=== PATIENT | female | born 2000 ===

== ENCOUNTER 2020-08-21 22:38 | Emergency (ER) | payer MEDICAID, OTHER, SELFPAY ==
[2020-08-22 01:34] VITALS: BP 128/74; PULSE 77; RESP 16; TEMP 36.7; O2SAT 100; BMI 27.9
[2020-08-22] MEDS: Ketorolac Tromethamine 15 MG/ML VIAL IM (02:13)
[2020-08-22] MEDS: Acetaminophen 325 MG TABLET 975 MG PO (02:13)
[2020-08-22] MEDS: Lidocaine 4 % Patch ADH..PATCH 1 PATCH TRANSDERMA (02:14)
--- NOTE | 2020-08-22 02:32 | ED.BACK ---
HPI - Back Pain/Injury General Chief Complaint: Back Pain/Injury Stated Complaint: back pain Time Seen by Provider: 08/22/20 00:59 Source: patient Mode of arrival: ambulatory History of Present Illness HPI Narrative: This is a 20-year-old female with chronic lower back pain that was exacerbated after she lifted her baby sister and now reports bilateral approximate L4/L5 paraspinal back tenderness with radiation into the upper portion of the buttocks as well as into the proximal thigh area without saddle anesthesia and she denies any urine or fecal incontinence or bilateral lower extremity weakness. In addition, she denies any IVDA history, fevers, chills. Related Data Allergies Allergy/AdvReac Type Severity Reaction Status Date / Time No Known Allergies Allergy Verified 08/22/20 01:37 Review of Systems Review of Systems: Pertinent positives and negatives as stated in HPI 10 point review of systems is otherwise negative. [facility] Past Medical History Source: nursing notes reviewed Social History Social History Advance Directives: No Physical Exam Vital Signs: Vital Signs: Last Vital Signs Temp 98.0 F 08/22/20 01:34 Pulse 77 08/22/20 01:34 Resp 16 08/22/20 01:34 BP 128/74 08/22/20 01:34 Pulse Ox 100 08/22/20 01:34 Body Mass Index 27.9 VITAL SIGNS: Reviewed. GENERAL: Well developed, well nourished, in no acute distress. NOSE: Nares patent bilateral OROPHARYNX: no oral lesions noted, posterior pharynx clear NECK: Supple, no adenopathy LUNGS: Normal breath sounds. SpO2<100> CARDIOVASCULAR: Regular rate and rhythm without noted murmurs ABDOMEN: Soft, non-tender, non-distended with bowel sounds. BACK: Full range of motion but limited on extension, straight leg test is negative, DTRs are intact, neurovascular intact to bilateral lower extremities, no pain on palpation over midline lumbar vertebra. SKIN: Inspection of the skin reveals no rashes, ulcerations, jaundice, pallor, or petechiae. NEUROLOGIC: Alert and oriented x 4. Strength and sensation to light touch were grossly intact x 4. Course Course Course Narrative: This is a 20-year-old female with history and clinical presentation consistent with acute on chronic exacerbation of lower back symptoms with evidence of lumbar go and on review of urinalysis and urine they are negative for evidence of infection or . There is low clinical suspicion for competing intra-abdominal pathologies and patient was treated with combination analgesics as well as a lidocaine patch. On re-evaluation patient reports that her back is feeling much better and feels agreeable for discharge. MDM - Back Pain/Injury Lab Data Labs: Lab Results 08/22/20 08/22/20 Range/Units 02:52 02:52 Urine Color YELLOW Urine Appearance HAZY Urine pH 6.0 (5.0-8.0) Ur Specific [place] >= 1.030 H (1.005-1.025) Urine Protein NEG (NEG-TRACE) MG/DL Urine Glucose (UA) NEG (NEG) MG/DL Urine Ketones NEG (NEG) MG/DL Urine Blood NEG (NEG) Urine Nitrite NEG (NEG) Ur Leukocyte Esterase NEG (NEG) Urine Test NEGATIVE (NEGATIVE) Discharge Plan Discharge Clinical Impression: Lumbar radiculopathy Patient Disposition: Home, Self-Care Instructions: Low Back Strain (ED), Lower Back Exercises (ED) Additional Instructions: 1. Tylenol 1000 mg, orally, every 6 hours as needed for pain control. Do not exceed 4000 mg within 24 hours. 2. Ibuprofen 400 mg, orally with milk or food, every 6 hours as needed for pain control. 3. Lidocaine patch, these are available at every [facility], apply to area of maximal tenderness as directed on the outside packaging. 4. Please follow-up with your primary care provider for re-evaluation outpatient management. Do not hesitate to return to the emergency department she develops any fevers, chills, inability to walk due to lower extremity weakness. Referrals: Physician,None [Primary Care Provider] - 2 days
[2020-08-22 03:20] LABS: Appearance Urine HAZY; Color Urine YELLOW; Glucose Urine UA NEG (NEG); Leukocyte Esterase Urine NEG (NEG); Nitrite Urine NEG (NEG); Specific Gravity - Urine >= 1.030 (1.005-1.025); Urine Blood NEG (NEG); Urine Ketones NEG (NEG); Urine Protein NEG (NEG-TRACE)
[2020-08-22 03:22] LABS: UPreg QC Valid YES; Urine Pregnancy NEGATIVE (NEGATIVE)
== END 2020-08-22 04:20 | disposition home or self-care (01) ==
PROVIDERS: Emergency Provider Student in an Organized Health Care Education/Training Program
DX: M54.16 Radiculopathy, lumbar region (principal); M54.5 Low back pain
CPT/HCPCS: 81003; 81025; 96372; 99283; 99284; J1885

== ENCOUNTER 2020-08-22 16:22 | Emergency (ER) | payer MEDICAID, OTHER, SELFPAY ==
[2020-08-22 16:28] VITALS: BP 122/59; PULSE 81; RESP 18; TEMP 36.7; O2SAT 99; BMI 27.9
--- NOTE | 2020-08-22 17:49 | ED_ITS ---
HPI - Back Pain/Injury General Chief Complaint: Back Pain/Injury Stated Complaint: back pain Time Seen by Provider: 08/22/20 17:49 History of Present Illness HPI Narrative: Patient complains and pain in the back after lifting an object yesterday at home, pain radiates into the upper gluteal area on both sides but does not radiate to the toes there is no tingling no numbness no weakness and no changes to bowel or bladder Patient was here last night for same problem and advised to take ibuprofen which did not bring sufficient relief, she got a shot of Toradol last night which she said was helpful Related Data Previous Rx's Medication Instructions Recorded cyclobenzaprine 5 mg PO TID PRN #14 tab 08/22/20 Allergies Allergy/AdvReac Type Severity Reaction Status Date / Time No Known Allergies Allergy Verified 08/22/20 16:28 Review of Systems Review of Systems: Positive for low back pain Negatives no fever no chills no weakness no dizziness no neck pain no chest pain no shortness of breath no abdominal pain no nausea or vomiting no changes to bowel or bladder, no dysuria no incontinence, no skin rash no numbness no weakness no tingling PMFSH Past Medical History Source: nursing notes reviewed Medical History (Updated 08/22/20 @ 18:20 by [place] Cunningham) Tuberculosis Surgical History (Updated 08/22/20 @ 16:32 by Marian Arzate RN) Hx of appendectomy Social History Social History Smoked in Last 30 Days: No Use of substances other than those prescribed or required for medical reasons: No Advance Directives: No Advance Directives Information Provided: Yes Physical Exam Vital Signs: Vital Signs: Last Vital Signs Temp 98.1 F 08/22/20 16:28 Pulse 81 08/22/20 16:28 Resp 18 08/22/20 16:28 BP 122/59 L 08/22/20 16:28 Pulse Ox 99 08/22/20 16:28 Body Mass Index 27.9 General appearance is no acute distress, cooperative and A&O x3 The head is normocephalic atraumatic Neck is supple nontender Respiratory no distress Abdomen soft nontender The back has bilateral lower lumbar paraspinal tenderness with no focal point tenderness over the bones, no CVA tenderness, skin is normal in appearance no redness or rash, pain is easily reproduced with movement Extremities is full range of motion x4 Neuro the gait is normal, there is no motor deficit motor is 5/5 x4, no sensory deficit, patient can walk on toes walk on heels and squat Course Course Course Narrative: Patient with musculoskeletal back pain after lifting injury we did not get sufficient relief from Motrin so I added a muscle relaxer with warnings that it may cause drowsiness and advised follow with primary doctor or chiropractor as needed Discharge Plan Discharge Clinical Impression: Back pain Qualifiers: Back pain location: low back pain Chronicity: acute Back pain laterality: bilateral Sciatica presence: without sciatica Qualified Code(s): M54.5 - Low back pain Patient Disposition: Home, Self-Care Additional Instructions: Pain is most likely muscle strain in the back We added a muscle relaxer which sometimes helps relieve muscle spasm, but it will make you drowsy so no driving for 8 hours after taking Chiropractor and massage her often helpful and this problem is usually self- limited and should improve dramatically in a few days If needed follow with primary doctor if pain does not improve or chiropractor Return any time any worse condition or concerns Prescriptions: New cyclobenzaprine 5 mg tablet 5 mg PO TID PRN (Reason: muscle spasm) Qty: 14 RF: 0 Stand Alone Forms: Work/School Release Interventions: ED Discharge Assessment Last Done: 08/22/20 18:53 Discharge Date/Time: 08/22/20 18:54
[2020-08-22] MEDS: Ketorolac Tromethamine 30 MG/ML VIAL IM (18:29)
== END 2020-08-22 18:54 | disposition home or self-care (01) ==
PROVIDERS: Emergency Provider Emergency Medicine Emergency Medical Services
DX: M54.5 Low back pain (principal)
CPT/HCPCS: 96372; 99284; J1885

== ENCOUNTER 2021-01-10 14:19 | Emergency (ER) | payer MEDICAID, OTHER, SELFPAY ==
--- NOTE | ~2021-01-10 | US_ITS ---
EXAMINATION: US OBSTETRICAL ULTRASOUND CLINICAL INFORMATION: Left lower quadrant pain COMPARISON: None. LMP: 11/08/2020. Gestational age by maternal dates is 9 weeks, 0 days. Estimated date of delivery by maternal dates is 08/15/2021. TECHNIQUE: Transabdominal imaging of the pelvic viscera was performed utilizing grayscale and color Doppler technique with M-mode imaging FINDINGS: There is a single intrauterine gestational sac with visible yolk sac, embryo/fetus, and cardiac activity. There is no significant subchorionic hemorrhage or hematoma. HR: 165 beats per minute. CRL (crown rump length): 3.26 cm (10 weeks, 2 days +/- 4 days). ELENI (estimated date of delivery): 08/06/2021 +/- 4 days. MATERNAL ADNEXA: The right maternal ovary measures 3.9 x 2.1 x 2.5 cm. The left maternal ovary measures 4.5 x 2.2 x 2.8 cm. There is a 2.3 cm corpus luteum. There is no significant maternal adnexal mass. No maternal pelvic ascites. US/US OB <= 14 weeks fetus IMPRESSION: * Single intrauterine gestation with ultrasound gestational age of 10 weeks, 2 days +/- 4 days. * Estimated date of delivery is 08/06/2021 +/- 4 days. * No maternal adnexal mass or pelvic ascites. * No perigestational hemorrhage. * No evidence of ectopic .
[2021-01-10 14:21] VITALS: BP 121/70; PULSE 89; RESP 18; TEMP 37.2; O2SAT 100; BMI 29.1
[2021-01-10 16:12] LABS: MANUAL DIFF FLAG NO
[2021-01-10 16:13] LABS: Basophils Percent Auto 0.3 % (0-2); Eosinophils Absolute Auto 0.1 X10*3/uL (0.0-0.4); Eosinophils Percent Auto 0.6 % (0-4); Hematocrit 39.2 % (37-47); Hemoglobin 13.1 g/dl (12.0-16.0); Imm Gran Abs Auto 0.04 X10*3/uL (0.00-0.03); Imm Gran Pct Auto 0.4 % (0.0-0.4); Lymphocytes Absolute Auto 3.1 X10*3/uL (1.2-4.9); Lymphocytes Percent Auto 27.1 % (20-40); Mean Corpuscular HGB Conc 33.4 g/dl (31.0-35.0); Mean Corpuscular Hemoglobin 27.8 pg (27.0-33.0); Mean Corpuscular Volume 83.1 fL (80-98); Mean Platelet Volume 9.4 fL (9.4-12.3); Monocytes Absolute Auto 0.8 X10*3/uL (0.1-1.2); Neutrophils Absolute Auto 7.3 X10*3/uL (2.0-8.3); Neutrophils Percent Auto 64.6 % (45-73); Platelet Count 338 X10*3/uL (160-400); Red Blood Count 4.72 X10*6/uL (4.20-5.50); Red Cell Distribution Width 12.9 % (11.0-16.0); White Blood Count 11.3 X10*3/uL (4.8-10.8)
[2021-01-10 16:40] LABS: Alanine Aminotransferase 20 U/L (0-31); Albumin Level 4.3 g/dL (3.5-5.0); Alkaline Phosphatase 78 U/L (39-117); Anion Gap 12 (12-20); Aspartate Amino Transferase 20 U/L (5-31); Bilirubin Total 0.2 mg/dL (0.0-1.0); Blood Urea Nitrogen 6 mg/dL (9-16); Calcium 9.4 mg/dL (8.4-10.2); Carbon Dioxide 24 mmol/L (22-29); Chloride 105 mmol/L (96-108); Creatinine Clr Calc Pharmacy 120.5; Estimated Glomerular Filt Rate > 60; Glucose Random 76 mg/dL (60-115); Sodium 137 mmol/L (135-145); Total Protein 7.7 g/dL (6.5-8.0)
--- NOTE | 2021-01-10 16:46 | ED_ITS ---
HPI - Female Genitourinary General Chief complaint: Abdominal Pain Stated complaint: lOWER ABD PAIN Time Seen by Provider: 01/10/21 16:27 Source: patient Mode of arrival: ambulatory Limitations: no limitations History of Present Illness HPI Narrative: Patient approximately 2 months complaining of pain in le ft lower abdomen since yesterday evening no urinary complaints never seen a OBG for this patient also been constipated no urinary complaints no fever no chills, no nausea no vomiting no diarrhea no fever or chills Related Data Previous Rx's Medication Instructions Recorded cyclobenzaprine 5 mg PO TID PRN #14 tab 08/22/20 Allergies Allergy/AdvReac Type Severity Reaction Status Date / Time No Known Allergies Allergy Verified 01/10/21 14:20 Review of Systems Review of Systems: Yes all other systems are reviewed and are negative [facility] Past Medical History Medical History Tuberculosis Surgical History Hx of appendectomy Social History Social History Advance Directives: No Advance Directives Information Provided: No Patient : Yes Physical Exam Vital Signs: Vital Signs: Last Vital Signs Temp 98.9 F 01/10/21 14:21 Pulse 89 01/10/21 14:21 Resp 18 01/10/21 14:21 BP 121/70 01/10/21 14:21 Pulse Ox 100 01/10/21 14:21 Body Mass Index 29.1 Appearance: Alert. Oriented X3. No acute distress. Eyes: PERRLA, ENT: Pharynx normal. Oral Mucosa moist Neck: Normal inspection. Neck supple. CVS: Normal heart rate and rhythm. Pulses normal. Respiratory: No respiratory distress. Equal air entry bilateral, no wheezing/rales/rhonchi Abdomen: Soft mild deep tenderness left lower quadrant no mass palpable Bowel sounds are present, no mass palpable, no CVA tenderness Skin: Skin warm and dry. Normal skin color. Normal skin turgor. Extremities: No lower extremity edema. No calf tenderness Neuro: Oriented X 3. No motor deficit. MDM - Female Genitourinary MDM Narrative Medical decision making narrative: Patient with IUP 10 weeks 2 days with heart rate 165 beats per minute likely discomfort from constipation patient feels better at this time will discharge patient home to follow up with [facility] Lab Data Attestation: I reviewed the patient's lab results. Result diagrams: 01/10/21 16:07 01/10/21 16:07 Labs: Lab Results 01/10/21 01/10/21 01/10/21 Range/Units 16:07 16:07 16:42 WBC 11.3 H (4.8-10.8) X10*3/uL RBC 4.72 (4.20-5.50) X10*6/uL Hgb 13.1 (12.0-16.0) g/dl Hct 39.2 (37-47) % MCV 83.1 (80-98) fL MCH 27.8 (27.0-33.0) pg MCHC 33.4 (31.0-35.0) g/dl RDW 12.9 (11.0-16.0) % Plt Count 338 (160-400) X10*3/uL MPV 9.4 (9.4-12.3) fL Immature Gran % (Auto) 0.4 (0.0-0.4) % Neut % (Auto) 64.6 (45-73) % Lymph % (Auto) 27.1 (20-40) % [place] % (Auto) 7.0 (2-11) % Eos % (Auto) 0.6 (0-4) % Baso % (Auto) 0.3 (0-2) % Lymph # (Auto) 3.1 (1.2-4.9) X10*3/uL [place] # (Auto) 0.8 (0.1-1.2) X10*3/uL Eos # (Auto) 0.1 (0.0-0.4) X10*3/uL Baso # (Auto) 0.0 (0.0-0.2) X10*3/uL Abs Immat Gran (auto) 0.04 H (0.00-0.03) X10*3/uL Absolute Neuts (auto) 7.3 (2.0-8.3) X10*3/uL Absolute Nucleated RBC 0.000 (0.0-0.012) X10*3/uL Nucleated RBC % (auto) 0.0 (0.0-0.2) /100WBC Sodium 137 (135-145) mmol/L Potassium 4.0 (3.3-5.1) mmol/L Chloride 105 (96-108) mmol/L Carbon Dioxide 24 (22-29) mmol/L Anion Gap 12 (12-20) BUN 6 L (9-16) mg/dL Creatinine 0.66 (0.5-1.4) mg/dL Estim Creat Clear Calc 120.5 Estimated GFR > 60 Random Glucose 76 (60-115) mg/dL Calcium 9.4 (8.4-10.2) mg/dL Total Bilirubin 0.2 (0.0-1.0) mg/dL AST 20 (5-31) U/L ALT 20 (0-31) U/L Alkaline Phosphatase 78 (39-117) U/L Total Protein 7.7 (6.5-8.0) g/dL Albumin 4.3 (3.5-5.0) g/dL Beta HCG, Quant 650009 mIU/mL Urine Color YELLOW Urine Appearance HAZY Urine pH 6.5 (5.0-8.0) Ur Specific [place] 1.025 (1.005-1.025) Urine Protein NEG (NEG-TRACE) MG/DL Urine Glucose (UA) NEG (NEG) MG/DL Urine Ketones NEG (NEG) MG/DL Urine Blood NEG (NEG) Urine Nitrite NEG (NEG) Ur Leukocyte Esterase 1+ H (NEG) Urine RBC 0-2 (0) /HPF Urine WBC 1-4 (0-4) /HPF Ur Squamous Epith Cells 4+ /LPF Urine Bacteria NONE /LPF Discharge Plan Discharge Clinical Impression: Discomfort during Patient Disposition: Home, Self-Care Instructions: at 7 to 10 Weeks (ED) Additional Instructions: Drink plenty of fluid take Tylenol for pain follow-up with ObG Report to ER if any bleeding or worsening of pain Prescriptions: No Action cyclobenzaprine 5 mg tablet 5 mg PO TID PRN (Reason: muscle spasm) Qty: 14 RF: 0 Referrals: Efren Argueta MD [Physician] - 1 week
[2021-01-10 16:51] LABS: Glucose Urine UA NEG (NEG); Leukocyte Esterase Urine 1+ (NEG); Nitrite Urine NEG (NEG); PH 6.5 (5.0-8.0); Specific Gravity - Urine 1.025 (1.005-1.025); UACC Culture Trigger YES; Urine Blood NEG (NEG); Urine Ketones NEG (NEG); Urine Protein NEG (NEG-TRACE)
[2021-01-10 16:53] LABS: Appearance Urine HAZY; Color Urine YELLOW
[2021-01-10 17:01] LABS: RBC Urine 0-2 /HPF (0); Squamous Epithelial Cell Urine 4+ /LPF
== END 2021-01-10 19:26 | disposition home or self-care (01) ==
PROVIDERS: Emergency Provider Internal Medicine
DX: O26.91 Pregnancy related conditions, unspecified, first trimester (principal); Z3A.08 8 weeks gestation of pregnancy
CPT/HCPCS: 36415; 76801; 80053; 81001; 81003; 84702; 85025; 87086; 99283

== ENCOUNTER → 2021-02-04 09:02 | Outpatient (BNVA) | payer MEDICAID, SELFPAY | PROVIDERS: PCP Internal Medicine; Visit Provider Advanced Practice Midwife | DX: Z34.90 Encounter for supervision of normal pregnancy, unspecified, unspecified trimester (principal); N92.6 Irregular menstruation, unspecified | CPT/HCPCS: 99202 ==

== ENCOUNTER 2021-02-05 09:30 | Outpatient (REF) | payer MEDICAID, SELFPAY ==
--- NOTE | ~2021-02-05 | US_ITS ---
EXAMINATION: OBSTETRICAL ULTRASOUND, FIRST TRIMESTER HISTORY: 20-year-old at 14.0 weeks of gestation NT screening COMPARISON: 01/10/2021 TECHNIQUE: Real time transabdominal imaging with color and M-mode Doppler. FINDINGS: A single, live IUP CRL of 75.8 mm c/w 13.5wks is noted. Heart Rate: 144 beats per minute. Normal yolk sac seen. NT was 1.36.mm. NB Present The embryo appears sonographically wnl for this GA. Both maternal ovaries are seen and appear normal. GESTATIONAL AGE: 1. Established GA: 14.0 wks 2. GA from [facility]: 13.5 wks ESTIMATED DATE OF DELIVERY: 1. Established ELENI: 08/06/2021 2. ELENI from [facility]: 08/08/2021 US/US OB 1T nuc measure IMPRESSION: 1. Single live IUP 2. Size equals dates 3. NT of 1.36 mm MFM Consultation: I reviewed the ultrasound findings along with significance of NT measurement. The NT of less than 3mm is generally reassuring. However, the sensitivity for T21 detection is only 60%. I reviewed the availability of serum aneuploidy screening which includes cell-free DNA and placental protein based tests. I discussed the sensitivity, false-positive rate, and other limitations associated with each test. I also reviewed the availability of invasive diagnostic tests that are associated small but definite risk of miscarriage. We also reviewed the differences between screening tests and diagnostic tests. After our discussion, she opted for the First trimester screening that is based on cell-free DNA or non-invasive testing (NIPT). The result will be faxed to your office in approximately 7 days. A follow up at 18 weeks for survey has been scheduled. Thank you very much for this referral. Total time 30 minutes. The time spent was devoted to counseling the patient about the disease and diagnosis, coordinating care including reviewing her records, pertinent lab data and studies, as well as discussing diagnostic evaluation and workup, plan therapeutic interventions and future disposition of care. This includes any additional research needed to obtain further information in formulating the plan of care of this patient. This note was generated with a voice recognition program. Please excuse any errors which may have been overlooked during my review of this note. Sometimes these errors may affect the content or meaning of a given sentence.
== END 2021-02-05 09:31 | disposition home or self-care (01) ==
LOC: HO.US 09:30
PROVIDERS: PCP Internal Medicine; Visit Provider Advanced Practice Midwife
DX: Z34.90 Encounter for supervision of normal pregnancy, unspecified, unspecified trimester (principal); Z36.82 Encounter for antenatal screening for nuchal translucency; Z3A.14 14 weeks gestation of pregnancy
CPT/HCPCS: 76813

== ENCOUNTER 2021-02-11 10:11 | Outpatient (REF) | payer OTHER, SELFPAY ==
[2021-02-11 11:56] LABS: Hematocrit 34.7 % (37-47); Hemoglobin 11.7 g/dl (12.0-16.0); Mean Corpuscular HGB Conc 33.7 g/dl (31.0-35.0); Mean Corpuscular Hemoglobin 27.7 pg (27.0-33.0); Mean Corpuscular Volume 82.2 fL (80-98); Mean Platelet Volume 9.9 fL (9.4-12.3); Platelet Count 318 X10*3/uL (160-400); Red Blood Count 4.22 X10*6/uL (4.20-5.50); Red Cell Distribution Width 13.6 % (11.0-16.0); White Blood Count 9.1 X10*3/uL (4.8-10.8)
[2021-02-11 13:03] LABS: Amphetamine Screen Urine Not Detected (Not Detect); Barbiturates, Urine Not Detected (Not Detect); Benzodiazepines Screen Urine Not Detected (Not Detect); Cannabinoid Screen Urine Not Detected (Not Detect); Cocaine Screen Urine Not Detected (Not Detect); Fentanyl, urine Not Detected (Not Detect); Opiate Screen Urine Not Detected (Not Detect); Phencyclidine Screen Urine Not Detected (Not Detect)
[2021-02-12 08:04] LABS: HBsAGNum1 0.22 S/CO (0.00-0.99); Hepatitis B Surface Antigen Negative (Negative); ~HepC Num1 0.14 S/CO (0.00-0.79); ~Hepatitis C Antibody Nonreactive (Nonreactive)
[2021-02-12 08:15] LABS: HIV AB/AG Nonreactive (Nonreactive); HIV Num 1 0.09 S/CO (0.00-0.99)
[2021-02-12 08:34] LABS: Syphilis Screen Nonreactive (Nonreactive)
[2021-02-12 18:01] LABS: Rubella IgG Antibody 5.27 Index
== END 2021-02-11 10:12 | disposition home or self-care (01) ==
LOC: HO.LAB 10:11
PROVIDERS: PCP Internal Medicine; Visit Provider Advanced Practice Midwife
DX: Z32.01 Encounter for pregnancy test, result positive (principal)
CPT/HCPCS: 80307; 85027; 86762; 86780; 86787; 86803; 86850; 86900; 86901; 87086; 87340; 87389; 99212

== ENCOUNTER 2021-02-25 13:50 | Outpatient (REF) | payer OTHER, SELFPAY ==
[2021-02-26 08:47] LABS: BV Int Neg Control Negative (Negative); BV Int Pos Control Positive (Positive)
[2021-02-26 09:01] LABS: CT PCR NOT DETECTED (Not Detect.); NG PCR NOT DETECTED (Not Detect.)
== END 2021-02-25 13:51 | disposition home or self-care (01) ==
LOC: HO.LAB 13:50
PROVIDERS: Visit Provider Advanced Practice Midwife
DX: Z34.90 Encounter for supervision of normal pregnancy, unspecified, unspecified trimester (principal); Z20.2 Contact with and (suspected) exposure to infections with a predominantly sexual mode of transmission; Z79.899 Other long term (current) drug therapy
CPT/HCPCS: 87480; 87491; 87510; 87591; 87660; 88142; 99212

== ENCOUNTER 2021-03-12 08:54 | Outpatient (REF) | payer OTHER, SELFPAY ==
--- NOTE | ~2021-03-12 | US_ITS ---
EXAMINATION: US OBSTETRICAL CLINICAL INFORMATION: 21-year-old at 19.0 weeks Screening for anomaly COMPARISON: 02/05/2021 TECHNIQUE: Real-time transabdominal ultrasound was performed using C1-5 megahertz transducer. FINDINGS: A single, active, fetus is seen in vertex presentation. The placenta is anterior without previa, and the amniotic fluid volume is wnl. MEASUREMENTS: 1. Biparietal Diameter: 3.8 cm; 17.5 wks 2. Occipital Frontal Diameter: 5.7 cm 3. Head Circumference: 15.2 cm; 18.2 wks 4. Abdominal Circumference: 13.5 cm; 19.0 wks 5. Femur Length: 2.9 cm; 19.0 wks 6. Humerus Length: 2.7 cm; 18.5 wks 7. Tibia Length: 2.6 cm; 19.3 wks 8. Ulna Length: 2.6 cm; 19.4 wks 9. Lateral ventricle: 0.52 cm 10. Cerebellum: 1.76 cm; 18.3 wks 11. Cisterna Magna: 0.43 cm 12. Nuchal Fold: 3.7 mm 13. Heart Rate: 142 beats per minute Rt ovary: normal Lt ovary: normal Cervical length 4.0 cm on T/A. GESTATIONAL AGE: 1. Established GA: 19.0 wks 2. GA from [facility]: 18.4 wks ESTIMATED DATE OF DELIVERY: 1. Established ELENI: 08/06/2021 2. ELENI from [facility]: 08/09/2021 ANATOMY: The visualized anatomy includes but not limited to: 1. Cranium: Normal 2. Intracranial anatomy: cavum septum pellucidi, lateral ventricles, choroid plexus, cerebellum, posterior fossa, third and fourth ventricles. 3. face: orbits, lip/palate, profile, nasal bone 4. Heart: four-chamber view of the heart, ventricular septum, foramen ovale, pulmonary vein, left and right outflow tracts, three-vessel view, 3 vessel trachea view, aortic and ductal arches, situs.. 5. Diaphragm: Normal 6. Abdominal wall: Normal 7. Cord Insertion: Normal 8. Spine: Cervical, thoracic, lumbar, sacral. 9. Stomach: Normal size and shape 10. Right Kidney: Normal 11. Left Kidney: Normal 12. 3 vessel cord: Normal 13. Upper extremity: Open hands, fifth digit. 14. Lower extremity: Tibia, fibula, bilateral feet. 15. Bladder: Normal 16. Genitalia: Female, Patient aware US/US OB /maternal detail IMPRESSION: 1. Single, living, intrauterine with appropriate biometry. 2. Normal survey DISCUSSION: I reviewed today's ultrasound findings. We discussed the limitations of ultrasound in diagnosing aneuploidy and other congenital abnormalities. I reviewed the differences between screening test and diagnostic test. Amniocentesis was discussed and declined. She was informed that the baseline incidence of congenital abnormalities is approximately 3-5%. Not all these conditions are diagnosable in utero. RECOMMENDATIONS: 1. Follow-up when necessary Thank you for allowing me to participate in her care. Total time 20 minutes. The time spent was devoted to counseling the patient about the disease and diagnosis, coordinating care including reviewing her records, pertinent lab data and studies, as well as discussing diagnostic evaluation and workup, plan therapeutic interventions and future disposition of care. This includes any additional research needed to obtain further information in formulating the plan of care of this patient. This note was generated with a voice recognition program. Please excuse any errors which may have been overlooked during my review of this note. Sometimes these errors may affect the content or meaning of a given sentence.
== END 2021-03-12 08:55 | disposition home or self-care (01) ==
LOC: HO.US 08:54
PROVIDERS: PCP Internal Medicine; Visit Provider Advanced Practice Midwife
DX: Z36.3 Encounter for antenatal screening for malformations (principal)
CPT/HCPCS: 76811

== ENCOUNTER 2021-03-26 20:36 | Emergency (ER) | payer OTHER, SELFPAY ==
[2021-03-26 21:28] VITALS: BP 111/58; PULSE 87; RESP 16; TEMP 36.9; O2SAT 100; BMI 28.5
[2021-03-26 21:57] LABS: Appearance Urine HAZY; Color Urine YELLOW; Glucose Urine UA NEG (NEG); Leukocyte Esterase Urine 1+ (NEG); Nitrite Urine NEG (NEG); Specific Gravity - Urine 1.025 (1.005-1.025); UACC Culture Trigger YES; Urine Blood NEG (NEG); Urine Ketones 5 MG/DL (NEG); Urine Protein TRACE MG/DL (NEG-TRACE)
[2021-03-26 22:10] LABS: Bacteria Urine 1+ /LPF; RBC Urine 0 /HPF (0); Squamous Epithelial Cell Urine 1+ /LPF; WBC Urine 0-2 /HPF (0-4)
[2021-03-26 23:19] VITALS: BP 117/73; PULSE 79; RESP 18; TEMP 37.2; O2SAT 98
--- NOTE | 2021-03-26 23:23 | ED_ITS ---
HPI - Abdominal Pain General Chief Complaint: Abdominal Pain Stated Complaint: Lower abdominal pain/21 wks preg Time Seen by Provider: 03/26/21 22:52 Source: patient and family (Spouse) Mode of arrival: ambulatory History of Present Illness HPI narrative: 21-year-old female without significant past medical history, at 21 weeks and denies any vaginal bleeding, loss of fluid, and reports good movement and states that she has had some difficulties with urinating and lower abdominal cramping as well as difficulty with bowel movement. She denies any associated nausea, vomiting, fever, chills, diarrhea and states that she was recently started on empiric antibiotics 2 days ago for similar symptoms. She denies any back pain. Related Data Previous Rx's Medication Instructions Recorded cyclobenzaprine 5 mg tablet 5 mg PO TID PRN #14 tab 08/22/20 vits no.126-ferrous fum 1 tab PO .1 daily 90 Days #90 tab 02/11/21 28 mg iron-folic acid 800 mcg tablet (Classic ) metronidazole 500 mg tablet 500 mg PO BID 7 Days #14 tab 03/02/21 (Flagyl) nitrofurantoin 100 mg PO BID 5 Days #10 cap 03/24/21 monohydrate/macrocrystals 100 mg capsule (Macrobid) cephalexin 500 mg capsule 500 mg PO Q12H 7 Days #14 cap 03/27/21 Allergies Allergy/AdvReac Type Severity Reaction Status Date / Time No Known Allergies Allergy Verified 02/25/21 13:59 Review of Systems Review of Systems Pertinent positives and negatives as stated in HPI 10 point review of systems is otherwise negative. Physical Exam Vital Signs: Vital Signs: Last Vital Signs Temp 98.9 F 03/26/21 23:19 Pulse 79 03/26/21 23:19 Resp 18 03/26/21 23:19 BP 117/73 03/26/21 23:19 Pulse Ox 98 03/26/21 23:19 Body Mass Index 28.5 VITAL SIGNS: Reviewed. GENERAL: Well developed, well nourished, in no acute distress. HEAD: Normocephalic/atraumatic EYES: PERRLA, EOMI OROPHARYNX: no oral lesions noted, posterior pharynx clear LUNGS: Normal breath sounds. No adventitious sounds or accessory muscle use. SpO 2<98> CARDIOVASCULAR: Regular rate and rhythm without noted murmurs, no JVD or lower extremity edema. ABDOMEN: Soft, non-tender, non-distended with bowel sounds, no CVA tenderness MUSCULOSKELETAL: No tenderness, deformities, or effusions noted on gross inspection. EXTREMITIES: No cyanosis, clubbing or edema. SKIN: Inspection of the skin reveals no rashes, ulcerations, jaundice, pallor, or petechiae. NEUROLOGIC: Alert and oriented x 4. Strength and sensation to light touch were grossly intact x 4. [id number] Course Course Course Narrative: 21-year-old female with history and clinical presentation most consistent with related body changes and likely round ligament symptom. Low clinical suspicion for infectious, compromise, and currently being treated for UTI. No evidence to suggest renal colic. Patient will be provided with Tylenol and will obtain basic lab work. Patient was reassured. Review of all investigations without acute findings except patient still has leukocyte esterase and switch patient from Macrobid which she has been on for 2 days to cephalexin in an attempt to obtain improvement in likely UTI symptoms being covered by Macrobid. MDM - Abdominal Pain Lab Data Result diagrams: 03/26/21 23:19 03/26/21 23:19 Labs: Lab Results 03/26/21 03/26/21 03/26/21 Range/Units 21:50 23:19 23:19 WBC 11.7 H (4.8-10.8) X10*3/uL RBC 3.98 L (4.20-5.50) X10*6/uL Hgb 11.5 L (12.0-16.0) g/dl Hct 33.8 L (37-47) % MCV 84.9 (80-98) fL MCH 28.9 (27.0-33.0) pg MCHC 34.0 (31.0-35.0) g/dl RDW 13.4 (11.0-16.0) % Plt Count 286 (160-400) X10*3/uL MPV 9.4 (9.4-12.3) fL Immature Gran % (Auto) 1.0 H (0.0-0.4) % Neut % (Auto) 64.6 (45-73) % Lymph % (Auto) 27.0 (20-40) % [place] % (Auto) 6.4 (2-11) % Eos % (Auto) 0.8 (0-4) % Baso % (Auto) 0.2 (0-2) % Lymph # (Auto) 3.2 (1.2-4.9) X10*3/uL [place] # (Auto) 0.8 (0.1-1.2) X10*3/uL Eos # (Auto) 0.1 (0.0-0.4) X10*3/uL Baso # (Auto) 0.0 (0.0-0.2) X10*3/uL Abs Immat Gran (auto) 0.12 H (0.00-0.03) X10*3/uL Absolute Neuts (auto) 7.5 (2.0-8.3) X10*3/uL Absolute Nucleated RBC 0.000 (0.0-0.012) X10*3/uL Nucleated RBC % (auto) 0.0 (0.0-0.2) /100WBC Sodium 138 (135-145) mmol/L Potassium 3.6 (3.3-5.1) mmol/L Chloride 106 (96-108) mmol/L Carbon Dioxide 24 (22-29) mmol/L Anion Gap 12 (12-20) BUN 6 L (9-16) mg/dL Creatinine 0.60 (0.5-1.4) mg/dL Estim Creat Clear Calc 130.1 Estimated GFR > 60 Random Glucose 96 (60-115) mg/dL Calcium 9.1 (8.4-10.2) mg/dL Total Bilirubin 0.2 (0.0-1.0) mg/dL AST 20 (5-31) U/L ALT 18 (0-31) U/L Alkaline Phosphatase 82 (39-117) U/L Total Protein 7.2 (6.5-8.0) g/dL Albumin 3.9 (3.5-5.0) g/dL Urine Color YELLOW Urine Appearance HAZY Urine pH 6.0 (5.0-8.0) Ur Specific [place] 1.025 (1.005-1.025) Urine Protein TRACE (NEG-TRACE) MG/DL Urine Glucose (UA) NEG (NEG) MG/DL Urine Ketones 5 (NEG) MG/DL Urine Blood NEG (NEG) Urine Nitrite NEG (NEG) Ur Leukocyte Esterase 1+ H (NEG) Urine RBC 0 (0) /HPF Urine WBC 0-2 (0-4) /HPF Ur Squamous Epith Cells 1+ /LPF Urine Bacteria 1+ /LPF Discharge Plan Discharge Clinical Impression: UTI (urinary tract infection) during Patient Disposition: Home, Self-Care Instructions: Dysuria (ED), Urinary Tract Infection in (ED) Additional Instructions: 1. Resume all home medications. 2. STOP Macrobid (nitrofurantoin) and START Cephalexin (you have been provided with a prescription) 3. Follow-up with your diagnostic technician and primary care provider for re-evaluation and follow-up on the urine culture. Return to the ER for acute worsening of symptoms. Prescriptions: New cephalexin 500 mg capsule 500 mg PO Q12H 7 Days Qty: 14 RF: 0 No Action metronidazole [Flagyl] 500 mg tablet 500 mg PO BID 7 Days Qty: 14 RF: 0 nitrofurantoin monohyd/m-cryst [Macrobid] 100 mg capsule 100 mg PO BID 5 Days Qty: 10 RF: 0 cyclobenzaprine 5 mg tablet 5 mg PO TID PRN (Reason: muscle spasm) Qty: 14 RF: 0 Classic 28 mg iron- 800 mcg tablet 1 tab PO .1 daily 90 Days Qty: 90 RF: 3 Referrals: Andreas Alberto MD [Primary Care Provider] - 2 days [place] CNM [Certified Nurse In File Operator] - 2 days (Patient started on Macrobid for UTI but still having symptoms with a positive urinalysis and switched to cephalexin. Please follow-up on urine culture.) [facility] Past Medical History Source: nursing notes reviewed Medical History Tuberculosis Surgical History Hx of appendectomy Family History Family History Father Sickle cell anemia Sister Rheumatoid arthritis Lupus Still's disease Social History Social History Household Members: Significant Other and Family Alcohol intake: never Patient Tobacco Use Status: Never used Tobacco e-Cigarette/Vaping Use: Never Used Use of substances other than those prescribed or required for medical reasons: No Trauma History: none Special emilia needs: No Agree to transfusion: Yes Advance Directives: No Advance Directives Information Provided: No Patient : Yes
[2021-03-26 23:24] LABS: MANUAL DIFF FLAG NO
[2021-03-26 23:26] LABS: Basophils Percent Auto 0.2 % (0-2); Eosinophils Absolute Auto 0.1 X10*3/uL (0.0-0.4); Eosinophils Percent Auto 0.8 % (0-4); Hematocrit 33.8 % (37-47); Hemoglobin 11.5 g/dl (12.0-16.0); Imm Gran Abs Auto 0.12 X10*3/uL (0.00-0.03); Lymphocytes Absolute Auto 3.2 X10*3/uL (1.2-4.9); Mean Corpuscular Hemoglobin 28.9 pg (27.0-33.0); Mean Corpuscular Volume 84.9 fL (80-98); Mean Platelet Volume 9.4 fL (9.4-12.3); Monocytes Absolute Auto 0.8 X10*3/uL (0.1-1.2); Monocytes Percent Auto 6.4 % (2-11); Neutrophils Absolute Auto 7.5 X10*3/uL (2.0-8.3); Neutrophils Percent Auto 64.6 % (45-73); Platelet Count 286 X10*3/uL (160-400); Red Blood Count 3.98 X10*6/uL (4.20-5.50); Red Cell Distribution Width 13.4 % (11.0-16.0); White Blood Count 11.7 X10*3/uL (4.8-10.8)
[2021-03-26] MEDS: Acetaminophen 325 MG TABLET 975 MG PO (23:36)
[2021-03-26 23:42] LABS: Alanine Aminotransferase 18 U/L (0-31); Albumin Level 3.9 g/dL (3.5-5.0); Alkaline Phosphatase 82 U/L (39-117); Anion Gap 12 (12-20); Aspartate Amino Transferase 20 U/L (5-31); Bilirubin Total 0.2 mg/dL (0.0-1.0); Blood Urea Nitrogen 6 mg/dL (9-16); Calcium 9.1 mg/dL (8.4-10.2); Carbon Dioxide 24 mmol/L (22-29); Chloride 106 mmol/L (96-108); Creatinine Clr Calc Pharmacy 130.1; Estimated Glomerular Filt Rate > 60; Glucose Random 96 mg/dL (60-115); Potassium 3.6 mmol/L (3.3-5.1); Sodium 138 mmol/L (135-145); Total Protein 7.2 g/dL (6.5-8.0)
[2021-03-27] MEDS: cephALEXin 500 MG CAPSULE PO (00:17)
== END 2021-03-27 00:22 | disposition home or self-care (01) ==
PROVIDERS: Emergency Provider Student in an Organized Health Care Education/Training Program; PCP Internal Medicine
DX: O23.42 Unspecified infection of urinary tract in pregnancy, second trimester (principal); N39.0 Urinary tract infection, site not specified; Z3A.21 21 weeks gestation of pregnancy; Z79.899 Other long term (current) drug therapy
CPT/HCPCS: 36415; 80053; 81001; 85025; 87086; 99283; 99285

== ENCOUNTER → 2021-03-29 09:59 | Outpatient (BNVA) | payer OTHER, SELFPAY | PROVIDERS: Visit Provider Advanced Practice Midwife | DX: O23.42 Unspecified infection of urinary tract in pregnancy, second trimester (principal); Z3A.21 21 weeks gestation of pregnancy | CPT/HCPCS: 81003; 99212 ==

== ENCOUNTER 2021-04-26 13:37 | Outpatient (REF) | payer OTHER, SELFPAY | END 2021-04-26 13:38 | disposition home or self-care (01) | LOC: HO.LAB 13:37 | PROVIDERS: Visit Provider Advanced Practice Midwife | DX: Z34.92 Encounter for supervision of normal pregnancy, unspecified, second trimester (principal) | CPT/HCPCS: 81003; 87086; 99212 ==

== ENCOUNTER → 2021-05-17 13:23 | Outpatient (BNVA) | payer OTHER, SELFPAY | PROVIDERS: Visit Provider Advanced Practice Midwife | DX: Z34.03 Encounter for supervision of normal first pregnancy, third trimester (principal); Z3A.28 28 weeks gestation of pregnancy | CPT/HCPCS: 81003; 99212 ==

== ENCOUNTER 2021-05-21 11:24 | Outpatient (REF) | payer OTHER, SELFPAY ==
[2021-05-21 13:18] LABS: Hematocrit 34.1 % (37.0-47.0); Hemoglobin 11.4 g/dl (12.0-16.0); Mean Corpuscular HGB Conc 33.4 g/dl (31.0-35.0); Mean Corpuscular Hemoglobin 29.4 pg (27.0-33.0); Mean Corpuscular Volume 87.9 fL (80.0-98.0); Mean Platelet Volume 10.1 fL (9.4-12.3); Platelet Count 273 X10*3/uL (160-400); Red Blood Count 3.88 X10*6/uL (4.20-5.50); Red Cell Distribution Width 13.2 % (11.0-16.0); White Blood Count 9.6 X10*3/uL (4.8-10.8)
[2021-05-21 13:39] LABS: Glucose 1 Hour PP 50gm Dose 109 mg/dL (60-140)
[2021-05-21 14:00] LABS: Syphilis Screen Nonreactive (Nonreactive)
== END 2021-05-21 11:25 | disposition home or self-care (01) ==
LOC: HO.LAB 11:24
PROVIDERS: Visit Provider Advanced Practice Midwife
DX: Z34.92 Encounter for supervision of normal pregnancy, unspecified, second trimester (principal); Z3A.00 Weeks of gestation of pregnancy not specified
CPT/HCPCS: 36415; 85027; 86780

== ENCOUNTER 2023-02-23 17:23 | Emergency (ER) | payer OTHER, SELFPAY ==
[2023-02-23 17:27] VITALS: BP 99/65; PULSE 94; RESP 16; TEMP 36.6; O2SAT 97; BMI 28.4
--- NOTE | 2023-02-23 17:30 | ED.GENADULT ---
HPI - General Adult General Chief complaint: Abdominal Pain Stated complaint: bloody stools Time Seen by Provider: 02/23/23 18:49 Source: patient Mode of arrival: ambulatory History of Present Illness HPI narrative: 22-year-old female who comes in with 3 days of blood mixed with her stool without dizziness, shortness of breath, palpitation she did notice blood within the toilet, she has had 2 children and she denies any swelling of her underwear. Related Data Previous Rx's Medication Instructions Recorded vits no.126-ferrous fum 1 tab PO .1 daily 90 days #90 tabs 02/11/21 28 mg iron-folic acid 800 mcg tablet (Classic ) ferrous sulfate 325 mg (65 mg 325 mg PO DAILY 30 days #30 tabs 05/25/21 iron) tablet,delayed release Allergies Allergy/AdvReac Type Severity Reaction Status Date / Time No Known Allergies Allergy Verified 02/23/23 17:31 Review of Systems Review of Systems: Pertinent positives and negatives as stated in HPI PMFSH Past Medical History Source: nursing notes reviewed Medical History Tuberculosis Surgical History Hx of appendectomy Family History Family History Father Sickle cell anemia Sister Rheumatoid arthritis Lupus Still's disease Social History Social History Household Members: Significant Other and Family Alcohol intake: never Patient Tobacco Use Status: Never used Tobacco Smoked in Last 30 Days: No e-Cigarette/Vaping Use: Never Used Use of substances other than those prescribed or required for medical reasons: No Trauma History: none Special emilia needs: No Agree to transfusion: Yes Advance Directives: No Advance Directives Information Provided: Yes Physical Exam ED Vital Signs: Vital Signs - 24 hr 02/23/23 17:27 02/23/23 19:21 02/23/23 19:24 Temperature 97.9 F 98.3 F 98.6 F Pulse Rate 94 76 78 Respiratory Rate 16 16 12 Blood Pressure 99/65 117/64 113/67 Pulse Oximetry 97 100 99 Oxygen Delivery Method Room Air Room Air Room Air BMI result Body Mass Index 28.4 VITAL SIGNS: Reviewed. GENERAL: Well developed, well nourished, in no acute distress. HEAD: Normocephalic/atraumatic EYES: PERRLA, EOMI EARS: Ext canals without abnormality NOSE: Nares patent bilateral OROPHARYNX: no oral lesions noted, posterior pharynx clear NECK: Supple, no adenopathy LUNGS: Normal breath sounds. No adventitious sounds or accessory muscle use. SpO2<99> CARDIOVASCULAR: Regular rate and rhythm without noted murmurs ABDOMEN: Soft, non-tender, non-distended with bowel sounds. VARGHESE: Small hemorrhoids noted at the 06:00 o'clock and noon position that are not inflamed, small amount of brown stool within the rectal vault and noted inflamed internal hemorrhoids, good rectal tone. MUSCULOSKELETAL: No tenderness, deformities, or effusions noted on gross inspection. EXTREMITIES: No cyanosis, clubbing or edema. SKIN: Inspection of the skin reveals no rashes NEUROLOGIC: Alert and oriented x 4. Strength and sensation to light touch were grossly intact x 4. Course Course Course Narrative: RME: 22 yold femfreddy presents to the ED for blood in stool and slight abdominal cramping. patietnt denies any nause or vomitting. labs ordered Medical Decision Making Medical Decision Making [facility] Narrative: 22-year-old female with history and clinical presentation, DDX: Hemorrhoidal bleeding, felt to be less likely upper GI bleed or diverticular bleed given age of patient. I reviewed all investigations and hematologic indices are negative for anemia, leukocytosis or left shift there is no thrombocytopenia. Coagulation studies are within normal limits. Chemistry indices are negative for electrolyte or liver enzyme abnormalities, there is no TAMIKA. Urinalysis is negative for UTI or hematuria an urine test is negative. It is my interpretation that patient is experiencing hemorrhoidal bleeding likely a combination external hemorrhoids and constipation, discussed with patient the use dietary changes or [id number] supplements to help reduce her constipation and to follow-up with her primary care doctor. Guaiac is noted to be positive, however this is not uncharacteristic and feel confident that follow-up with patient's primary care doctor for discussion regarding referral to Gastroenterology is a next best course of action Differential Diagnosis Differential Diagnoses: The differential diagnosis associated with the presentation includes Please see the discussion above Admission/Observation Consideration of admission/observation: Escalation of care including admission/observation considered Please see the discussion above Lab Data [facility] Lab Attestation statement: I reviewed the patient's lab results. Please see the discussion above 02/23/23 17:49 02/23/23 17:49 Labs: Lab Results 02/23/23 02/23/23 02/23/23 Range/Units 17:49 17:49 17:49 WBC 9.3 (4.8-10.8) X10*3/uL RBC 4.69 D (4.20-5.50) X10*6/uL Hgb 12.2 (12.0-16.0) g/dl Hct 37.4 (37.0-47.0) % MCV 79.7 L (80.0-98.0) fL MCH 26.0 L (27.0-33.0) pg MCHC 32.6 (31.0-35.0) g/dl RDW 14.7 (11.0-16.0) % Plt Count 350 D (160-400) X10*3/uL MPV 10.1 (9.4-12.3) fL Immature Gran % (Auto) 0.3 (0.0-0.4) % Neut % (Auto) 53.2 (45-73) % Lymph % (Auto) 35.7 (20-40) % [place] % (Auto) 7.2 (2-11) % Eos % (Auto) 2.8 (0-4) % Baso % (Auto) 0.8 (0-2) % Lymph # (Auto) 3.3 (1.2-4.9) X10*3/uL [place] # (Auto) 0.7 (0.1-1.2) X10*3/uL Eos # (Auto) 0.3 (0.0-0.4) X10*3/uL Baso # (Auto) 0.1 (0.0-0.2) X10*3/uL Abs Immat Gran (auto) 0.03 (0.00-0.03) X10*3/uL Absolute Neuts (auto) 4.9 (2.0-8.3) x10*3/uL Absolute Nucleated RBC 0.000 (0.0-0.012) X10*3/uL Nucleated RBC % (auto) 0.0 (0.0-0.2) /100WBC PT 12.1 (11.1-13.3) SEC INR 1.0 (0.9-1.1) APTT 33.9 (26.0-36.4) SEC Sodium 138 (135-145) mmol/L Potassium 3.9 (3.3-5.1) mmol/L Chloride 108 (96-108) mmol/L Carbon Dioxide 20 L (22-29) mmol/L Anion Gap 14 (12-20) BUN 13 (9-16) mg/dL Creatinine 0.71 (0.5-1.4) mg/dL Estim Creat Clear Calc 108.9 Estimated GFR > 60 Random Glucose 97 (60-115) mg/dL Calcium 9.5 (8.4-10.2) mg/dL Total Bilirubin 0.2 (0.0-1.0) mg/dL AST 20 (5-31) U/L ALT 21 (0-31) U/L Alkaline Phosphatase 149 H (39-117) U/L Total Protein 8.4 H (6.5-8.0) g/dL Albumin 4.5 (3.5-5.0) g/dL Lipase 47 (8-78) U/L Beta HCG, Quant mIU/mL Urine Color Urine Appearance Urine pH (5.0-9.0) Ur Specific [place] (1.005-1.025) Urine Protein (Neg-Trace) mg/dL Urine Glucose (UA) (Negative) mg/dL Urine Ketones (Negative) mg/dL Urine Blood (Negative) Urine Nitrite (Negative) Ur Leukocyte Esterase (Negative) Urine Test (NEGATIVE) Stool Occult Blood (NEGATIVE) 02/23/23 02/23/23 02/23/23 Range/Units 17:49 17:49 17:49 WBC (4.8-10.8) X10*3/uL RBC (4.20-5.50) X10*6/uL Hgb (12.0-16.0) g/dl Hct (37.0-47.0) % MCV (80.0-98.0) fL MCH (27.0-33.0) pg MCHC (31.0-35.0) g/dl RDW (11.0-16.0) % Plt Count (160-400) X10*3/uL MPV (9.4-12.3) fL Immature Gran % (Auto) (0.0-0.4) % Neut % (Auto) (45-73) % Lymph % (Auto) (20-40) % [place] % (Auto) (2-11) % Eos % (Auto) (0-4) % Baso % (Auto) (0-2) % Lymph # (Auto) (1.2-4.9) X10*3/uL [place] # (Auto) (0.1-1.2) X10*3/uL Eos # (Auto) (0.0-0.4) X10*3/uL Baso # (Auto) (0.0-0.2) X10*3/uL Abs Immat Gran (auto) (0.00-0.03) X10*3/uL Absolute Neuts (auto) (2.0-8.3) x10*3/uL Absolute Nucleated RBC (0.0-0.012) X10*3/uL Nucleated RBC % (auto) (0.0-0.2) /100WBC PT (11.1-13.3) SEC INR (0.9-1.1) APTT (26.0-36.4) SEC Sodium (135-145) mmol/L Potassium (3.3-5.1) mmol/L Chloride (96-108) mmol/L Carbon Dioxide (22-29) mmol/L Anion Gap (12-20) BUN (9-16) mg/dL Creatinine (0.5-1.4) mg/dL Estim Creat Clear Calc Estimated GFR Random Glucose (60-115) mg/dL Calcium (8.4-10.2) mg/dL Total Bilirubin (0.0-1.0) mg/dL AST (5-31) U/L ALT (0-31) U/L Alkaline Phosphatase (39-117) U/L Total Protein (6.5-8.0) g/dL Albumin (3.5-5.0) g/dL Lipase (8-78) U/L Beta HCG, Quant < 2 mIU/mL Urine Color Yellow Urine Appearance Clear Urine pH 5.5 (5.0-9.0) Ur Specific [place] >= 1.030 H (1.005-1.025) Urine Protein Negative (Neg-Trace) mg/dL Urine Glucose (UA) Negative (Negative) mg/dL Urine Ketones Negative (Negative) mg/dL Urine Blood Negative (Negative) Urine Nitrite Negative (Negative) Ur Leukocyte Esterase Negative (Negative) Urine Test NEGATIVE (NEGATIVE) Stool Occult Blood (NEGATIVE) 02/23/23 Range/Units 19:37 WBC (4.8-10.8) X10*3/uL RBC (4.20-5.50) X10*6/uL Hgb (12.0-16.0) g/dl Hct (37.0-47.0) % MCV (80.0-98.0) fL MCH (27.0-33.0) pg MCHC (31.0-35.0) g/dl RDW (11.0-16.0) % Plt Count (160-400) X10*3/uL MPV (9.4-12.3) fL Immature Gran % (Auto) (0.0-0.4) % Neut % (Auto) (45-73) % Lymph % (Auto) (20-40) % [place] % (Auto) (2-11) % Eos % (Auto) (0-4) % Baso % (Auto) (0-2) % Lymph # (Auto) (1.2-4.9) X10*3/uL [place] # (Auto) (0.1-1.2) X10*3/uL Eos # (Auto) (0.0-0.4) X10*3/uL Baso # (Auto) (0.0-0.2) X10*3/uL Abs Immat Gran (auto) (0.00-0.03) X10*3/uL Absolute Neuts (auto) (2.0-8.3) x10*3/uL Absolute Nucleated RBC (0.0-0.012) X10*3/uL Nucleated RBC % (auto) (0.0-0.2) /100WBC PT (11.1-13.3) SEC INR (0.9-1.1) APTT (26.0-36.4) SEC Sodium (135-145) mmol/L Potassium (3.3-5.1) mmol/L Chloride (96-108) mmol/L Carbon Dioxide (22-29) mmol/L Anion Gap (12-20) BUN (9-16) mg/dL Creatinine (0.5-1.4) mg/dL Estim Creat Clear Calc Estimated GFR Random Glucose (60-115) mg/dL Calcium (8.4-10.2) mg/dL Total Bilirubin (0.0-1.0) mg/dL AST (5-31) U/L ALT (0-31) U/L Alkaline Phosphatase (39-117) U/L Total Protein (6.5-8.0) g/dL Albumin (3.5-5.0) g/dL Lipase (8-78) U/L Beta HCG, Quant mIU/mL Urine Color Urine Appearance Urine pH (5.0-9.0) Ur Specific [place] (1.005-1.025) Urine Protein (Neg-Trace) mg/dL Urine Glucose (UA) (Negative) mg/dL Urine Ketones (Negative) mg/dL Urine Blood (Negative) Urine Nitrite (Negative) Ur Leukocyte Esterase (Negative) Urine Test (NEGATIVE) Stool Occult Blood POSITIVE (NEGATIVE) External Record Review External record reviewed: Outpatient record and Prior outpatient labs Discharge Plan Discharge Clinical Impression: External bleeding hemorrhoids Patient Disposition: Home, Self-Care Instructions: Hemorrhoids (ED) Additional Instructions: 1. Recommend the use of [id number] stool softeners to help avoid constipation, increase the amount of water intake and also increase the amount of raw fruits and vegetables. 2. Recommend follow-up with your primary care doctor for discussion regarding referral to Gastroenterology although your external hemorrhoids do appear to be quite small. Return to the ER for any worsening symptoms. Prescriptions: No Action ferrous sulfate 325 mg (65 mg iron) tablet,delayed release (DR/EC) 325 mg PO DAILY 30 Days Qty: 30 0RF Classic 28 mg iron- 800 mcg tablet 1 tab PO .1 daily 90 Days Qty: 90 3RF Referrals: [facility] [Primary Care Provider] -
[2023-02-23 17:55] LABS: MANUAL DIFF FLAG NO
[2023-02-23 17:57] LABS: Appearance Urine Clear; Color Urine Yellow; Glucose Urine UA Negative (Negative); Leukocyte Esterase Urine Negative (Negative); Nitrite Urine Negative (Negative); PH 5.5 (5.0-9.0); Specific Gravity - Urine >= 1.030 (1.005-1.025); Urine Blood Negative (Negative); Urine Ketones Negative (Negative); Urine Protein Negative (Neg-Trace)
[2023-02-23 17:58] LABS: UPreg QC Valid YES; Urine Pregnancy NEGATIVE (NEGATIVE)
[2023-02-23 18:04] LABS: Prothrombin Time 12.1 SEC (11.1-13.3)
[2023-02-23 18:07] LABS: Partial Thromboplastin Time 33.9 SEC (26.0-36.4)
[2023-02-23 18:09] LABS: Alanine Aminotransferase 21 U/L (0-31); Albumin Level 4.5 g/dL (3.5-5.0); Alkaline Phosphatase 149 U/L (39-117); Anion Gap 14 (12-20); Aspartate Amino Transferase 20 U/L (5-31); Bilirubin Total 0.2 mg/dL (0.0-1.0); Blood Urea Nitrogen 13 mg/dL (9-16); Calcium 9.5 mg/dL (8.4-10.2); Carbon Dioxide 20 mmol/L (22-29); Chloride 108 mmol/L (96-108); Creatinine Clr Calc Pharmacy 108.9; Estimated Glomerular Filt Rate > 60; Glucose Random 97 mg/dL (60-115); Lipase 47 U/L (8-78); Potassium 3.9 mmol/L (3.3-5.1); Sodium 138 mmol/L (135-145); Total Protein 8.4 g/dL (6.5-8.0)
[2023-02-23 18:13] LABS: Basophils Absolute Auto 0.1 X10*3/uL (0.0-0.2); Basophils Percent Auto 0.8 % (0-2); Eosinophils Absolute Auto 0.3 X10*3/uL (0.0-0.4); Eosinophils Percent Auto 2.8 % (0-4); Hematocrit 37.4 % (37.0-47.0); Hemoglobin 12.2 g/dl (12.0-16.0); Imm Gran Abs Auto 0.03 X10*3/uL (0.00-0.03); Imm Gran Pct Auto 0.3 % (0.0-0.4); Lymphocytes Absolute Auto 3.3 X10*3/uL (1.2-4.9); Lymphocytes Percent Auto 35.7 % (20-40); Mean Corpuscular HGB Conc 32.6 g/dl (31.0-35.0); Mean Corpuscular Volume 79.7 fL (80.0-98.0); Mean Platelet Volume 10.1 fL (9.4-12.3); Monocytes Absolute Auto 0.7 X10*3/uL (0.1-1.2); Monocytes Percent Auto 7.2 % (2-11); Neutrophils Absolute Auto 4.9 x10*3/uL (2.0-8.3); Neutrophils Percent Auto 53.2 % (45-73); Platelet Count 350 X10*3/uL (160-400); Red Blood Count 4.69 X10*6/uL (4.20-5.50); Red Cell Distribution Width 14.7 % (11.0-16.0); White Blood Count 9.3 X10*3/uL (4.8-10.8)
[2023-02-23 18:19] LABS: HCG Quantitative < 2 mIU/mL
[2023-02-23 19:21] VITALS: BP 117/64; PULSE 76; RESP 16; TEMP 36.8; O2SAT 100
[2023-02-23 19:24] VITALS: BP 113/67; PULSE 78; RESP 12; TEMP 37; O2SAT 99
--- NOTE | 2023-02-23 19:25 | PC.NURSE ---
Pt ca&ox4, no signs of distress. Pt reports 6/10 intermittent ULQ pain onset 3 day ago. Pt reports blood in stool like a light period . Reports constipation 2 days ago but now using the bathroom regularly. Pt denies n/v/d. Pt reports eating and drinking normally. Pt reports 2 days ago. plan of care ongoing.
[2023-02-23 19:52] LABS: OBS Int Ctl Valid YES; OBS1 POSITIVE (NEGATIVE)
--- NOTE | 2023-02-23 19:57 | PC.NURSE ---
Pt requesting bf and baby to come into room from waiting room to breast feed. Bf and baby at bedside. Plan of care ongoing.
== END 2023-02-23 20:44 | disposition home or self-care (01) ==
PROVIDERS: Physician Assistant; Emergency Provider Student in an Organized Health Care Education/Training Program
DX: K64.4 Residual hemorrhoidal skin tags (principal); K62.5 Hemorrhage of anus and rectum
CPT/HCPCS: 36415; 80053; 81003; 81025; 82272; 83690; 84702; 85025; 85610; 85730; 99284

== ENCOUNTER 2025-03-17 12:19 | Outpatient (REF) | payer MEDICAID, OTHER, SELFPAY ==
--- OUTSIDE RECORDS SUMMARY | 2025-03-17 18:40 | XMS_ITS | Encounter Summary ---
Author Organization [employer] Address [address] [facility] [address] [place] [address] Care Team Providers Care Cage Manager Name Role Phone Unavailable Primary Care Provider Unavailabl e Reason for Visit * Reason Comments Vaginal Discharge Bloated Encounter Details Date Type Department Care Team ([facility] st Contact Info) Description 03/17/2025 6:40 PM EDT Office Visit [facility] [address] [place] [address] Oliverio Quinn MD [address] [place] [address] Subacute vaginitis (Primary Dx); Bloating symptom Social History Tobacco Use Types Packs/Day Years Used Date Smoking Tobacco: Never Passive Smoke Exposure: Never Smokeless Tobacco: Never Tobacco Cessation:Counseling Given: Not Answered Housing Stability Answer Date Recorded What is your housing situation today? I have kimsyl dang 05/01/[address] you li ve. Do you have problems with any of the following? None of the above 05/01/2023 Food Insecurity Answer Date Recorded Within the past 12 months, y ou worried that your food would run out before you got money to buy more: Never True 05/01/2023 Within the past 12 months,th e food you bought just didn't last and you didn't have enough money to get more: Never True 11/2022 Transportation Answer Date Recorded In the past 12 months, has l ack of transportation kept you from medical appts, meetings, work or from getting things needed for daily living? No 05/01/2023 Utilities Answer Date Recorded In the past 12 months, has t he electric, gas, oil or water company threatened to shut off services in your home? No 05/01/2023 Comments No Sex and Gender Information Value Date Recorded Sex Assigned at Female 04/25/2022 10:38 AM EDT Legal Sex Female 10:38 AM EDT Gender Identity Female 04/25/2022 10:38 AM EDT Sexual Orientation Choose not to disclose 2021 10:38 AM EDT documented as of this encounter Last Filed Vital Signs Vital Sign Reading Time Taken Comments Blood Pressure 133/75 03/17/2025 6:45 PM EDT Pulse 82 03/17/2025 6:45 PM EDT Temperature 36.7 C (98.1 F) 03/17/2025 6:45 PM EDT Respiratory Rate 20 03/17/2025 6:45 PM EDT Oxygen Saturation - - Inhaled Oxygen Concentration - - Weight 77.1 kg (170 lb) 03/17/2025 6:45 PM EDT Height 153.7 cm (5' 0.5 ) 03/17/2025 6:45 PM EDT Body Mass Index 32.65 03/17/2025 6:45 PM EDT documented in this encounter Progress Notes * Oliverio Quinn MD - 03/17/2025 6:40 PM EDT SUBJECTIVE Jennifer Connolly is a 25 y.o. female who presents for Vaginal Discharge and Bloated. Vaginal Discharge The patient's primary symptoms include vaginal discharge. This is a new problem. The current episode started more than 1 month ago. Episode frequency: worse w/ spotting since Feb 26. The problem has been unchanged. The patient is experiencing no pain. Associated symptoms include constipation. Pertinent negatives include no fever, painful intercourse or urgency. Has only one male sexual partner who is asymptomatic. H/o bloating x 3 months. Pt has changed her diet, eating more vegetable w/ worsening of the symptoms. Report occasional constipation. Problem List[1] Allergies[2] Medications Ordered Prior to Encounter[3] Review of Systems Constitutional: Negative for fever. Gastrointestinal: Positive for constipation. Bloating Genitourinary: Positive for vaginal discharge. Negative for urgency. OBJECTIVE Vitals: 03/17/25 1845 BP: 133/75 BP Location: Left arm Patient Position: Sitting BP Cuff Size: Adult Pulse: 82 Resp: 20 Temp: 98.1 ??F (36.7 ??C) TempSrc: Oral Weight: 170 lb (77.1 kg) Height: 5' 0.5 (1.537 m) Physical Exam Constitutional: General: She is not in acute distress. Appearance: Normal appearance. She is not ill-appearing, toxic-appearing or diaphoretic. Pulmonary: Effort: Pulmonary effort is normal. Abdominal: Palpations: Abdomen is soft. Neurological: Mental Status: She is alert. Assessment/Plan Assessment/Plan Diagnoses and all orders for this visit: Subacute vaginitis Comments: Educated on this condition. ?? BV. Pt will be called w/ the results of the tests. Orders: - Bacterial Vaginosis Panel - Chlamydia/N. Gonorrhoeae RNA, TMA, Vaginal - POCT Urine - metroNIDAZOLE (Flagyl) 500 MG tablet; Take 1 tablet (500 mg) by mouth 2 times daily for 7 days. Bloating symptom Comments: Trial of a low FODMAP diet x 1 month given the fact that it's very restrictive Follow up w/ PCP in a month or so. Orders: - POCT Urine [1] There is no problem list on file for this patient. [2] No Known Allergies [3] Current Outpatient Medications on File Prior to Visit Medication Sig Dispense Refill Vit-Fe Fumarate-FA ( Vitamins) 28-0.8 MG tablet pyridoxine (Vitamin B-6) 25 MG tablet one pill 3 times a day as needed for nausea No current facility-administered medications on file prior to visit. documented in this encounter Miscellaneous Notes * Patient Education Note - Oliverio Quinn MD - 03/17/2025 11:30 PM EDT Images from the original note were not included. Patient Education Table of Contents Irritation of the Vagina (Vaginitis): What to Know To view videos and all your education online visit, [email or web address] or scan this QR code with your smartphone. Access to this content will in one year. Irritation of the Vagina (Vaginitis): What to Know Vaginitis is irritation and swelling of the vagina. It happens when the usual balance of bacteria and yeast in the vagina changes. This change causes some types to grow too much. This overgrowth leads to vaginitis. What are the causes? Bacteria. Yeast, which is a fungus. A parasite. A virus. Low hormones in the body. This can occur during , , or after menopause. What increases the risk? Irritants, such as douches, bubble baths, scented tampons, and feminine sprays. Antibiotics. Poor hygiene. Wearing tight pants or thong underwear. Some control methods, such as diaphragms, vaginal sponges, or spermicides. Having sex without a condom or having sex with more than one person. Infections. Uncontrolled diabetes. What are the signs or symptoms? Abnormal fluid from the vagina. The fluid may be: ? White, lala, or yellow. ? Thick, white, and cheesy. ? Frothy and yellow or green. A bad smell from the vagina. Itching, pain, or swelling in the vagina. Pain during sex. Pain or burning when you pee. How is this diagnosed? This condition is diagnosed based on your symptoms, medical history, and an exam. This may include a pelvic exam. Tests may also be done. Tests may be done to: Check the pH level of your vagina. Check the fluid in your vagina. How is this treated? Treatment will depend on what is causing your vaginitis. Treatment may include: Antibiotics. Antifungal medicines. Medicines to treat symptoms if you have a virus. Your sex partner should also be treated. Estrogen medicines. Medicines to treat allergies. The medicines may be pills or creams. Follow these instructions at home: Lifestyle Keep the area around your vagina clean and dry. Avoid using soap. Rinse the area with water. Until your health care provider says it's okay: ? Do not douche. ? Do not use tampons. Use pads, if needed. ? Do not have sex. Wipe from front to back after going to the bathroom. When the provider says it's okay, practice safe sex. Use condoms. General instructions Take your medicines only as told. If you were given antibiotics, take them as told. Do not stop taking them even if you start to feelbetter. How is this prevented? Use mild, unscented products. Avoid the following products if they are scented: ? Sprays. ? Detergents. ? Tampons. ? Products for cleaning the vagina. ? Soaps or bubble baths. Let air reach your genital area. To do this: ? Wear cotton underwear. ? Do not wear underwear while you sleep. ? Do not wear tight pants and underwear or pantyhose without a cotton panel. ? Do not wear thong underwear. Take off any wet clothing, such as bathing suits, as soon as possible. Practice safe sex. Use condoms. Contact a health care provider if: You have pain in the belly or around the pelvis. You have a fever or chills. You have symptoms that last for more than 2?3 days. This information is not intended to replace advice given to you by your health care provider. Make sure you discuss any questions you have with your health care provider. Document Released: 2008-04-08 Document Updated: 2024-03-14 Document Reviewed: 2023-10-23 [employer] Patient Education ? 2024 [employer]. * Patient Education Note - Oliverio Quinn MD - 03/17/2025 11:29 PM EDT Images from the original note were not included. Patient Education Table of Contents Low-FODMAP Eating Plan To view videos and all your education online visit, [email or web address] or scan this QR code with your smartphone. Access to this content will in one year. Low-FODMAP Eating Plan FODMAP stands for fermentable oligosaccharides, disaccharides, monosaccharides, and polyols. These are sugars that are hard for some people to digest. A low- FODMAP eating plan may help some people who have irritable bowel syndrome (IBS) and certain other bowel (intestinal) diseases to manage their symptoms. This meal plan can be complicated to follow. Work with a diet and entry specialists (dietitian) to make a low-FODMAP eating plan that is right for you. A dietitian can help make sure that you get enough nutrition from this diet. What are tips for following this plan? Reading food labels Check labels for hidden FODMAPs such as: ? High-fructose syrup. ? Honey. ? Agave. ? Natural fruit flavors. ? Onion or garlic powder. Choose low-FODMAP foods that contain 3?4 grams of fiber per serving. Check food labels for serving sizes. Eat only one serving at a time to make sure FODMAP levels staylow. Shopping Shop with a list of foods that are recommended on this diet and make a meal plan. Meal planning Follow a low-FODMAP eating plan for up to 6 weeks, or as told by your health care provider or dietitian. To follow the eating plan: 1. Eliminate high-FODMAP foods from your diet completely. Choose only low-FODMAP foods to eat. You will do this for 2-6 weeks. Gradually reintroduce high-FODMAP foods into your diet one at a time. Most people should wait a fewdays before introducing the next new high-FODMAP food into their meal plan. Your dietitian can recommend how quickly you may reintroduce foods. Keep a daily record of what and how much you eat and drink. Make note of any symptoms that you haveafter eating. Review your daily record with a dietitian regularly to identify which foods you can eat and which foods you should avoid. General tips Drink enough fluid each day to keep your urine pale yellow. Avoid processed foods. These often have added sugar and may be high in FODMAPs. Avoid most dairy products, whole grains, and sweeteners. Work with a dietitian to make sure you get enough fiber in your diet. Avoid high FODMAP foods at meals to manage symptoms. Recommended foods Fruits Bananas, oranges, tangerines, jourdan, limes, blueberries, raspberries, strawberries, grapes, cantaloupe, honeydew melon, kiwi, papaya, passion fruit, and pineapple. Limited amounts of dried cranberries, banana chips, and shredded coconut. Vegetables Eggplant, zucchini, cucumber, peppers, green beans, wesley sprouts, lettuce, arugula, kale, Armenian chard, spinach, hallie greens, bok julia, summer squash, potato, and tomato. Limited amounts of corn, carrot, and sweet potato. Green parts of scallions. Grains Gluten-free grains, such as rice, oats, buckwheat, quinoa, corn, polenta, and millet. Gluten-free pasta, bread, or cereal. Rice noodles. [place] tortillas. Meats and other proteins Unseasoned beef, pork, poultry, or fish. Eggs. Cao. Tofu (firm) and tempeh. Limited amounts of nuts and seeds, such as almonds, walnuts, brazil nuts, pecans, peanuts, nut butters, pumpkin seeds, isra seeds, and sunflower seeds. Dairy Lactose-free milk, yogurt, and kefir. Lactose-free cottage cheese and ice cream. Non-dairy milks, such as almond, coconut, hemp, and rice milk. Non-dairy yogurt. Limited amounts of goat cheese, brie,mozzarella, parmesan, german, and other hard cheeses. Fats and oils Butter-free spreads. Vegetable oils, such as olive, canola, and sunflower oil. Seasoning and other foods Artificial sweeteners with names that do not end in ol, such as aspartame, saccharine, and stevia. Maple syrup, white table sugar, raw sugar, brown sugar, and molasses. Mayonnaise, soy sauce, and tamari. Fresh basil, coriander, parsley, sridevi, and thyme. Beverages Water and mineral water. Sugar-sweetened soft drinks. Small amounts of orange juice or cranberry juice. Black and green tea. Most dry tracy. Coffee. The items listed above may not be a complete list of foods and beverages you can eat. Contact a dietitian for more information. Foods to avoid Fruits Fresh, dried, and juiced forms of apple, pear, watermelon, peach, plum, cherries, apricots, blackberries, boysenberries, figs, nectarines, and lorena. Avocado. Vegetables Chicory root, artichoke, asparagus, cabbage, snow peas, [place] sprouts, broccoli, sugar snap peas, mushrooms, celery, and cauliflower. Onions, garlic, leeks, and the white part of scallions. Grains Wheat, including kamut, durum, and semolina. Barley and bulgur. Couscous. Wheat- based cereals. Wheat noodles, bread, crackers, and pastries. Meats and other proteins Fried or fatty meat. Sausage. Cashews and pistachios. Soybeans, baked beans, black beans, chickpeas, kidney beans, fe beans, navy beans, lentils, black- eyed peas, and split peas. Dairy Milk, yogurt, ice cream, and soft cheese. Cream and sour cream. Milk-based sauces. Custard. Buttermilk. Soy milk. Seasoning and other foods Any sugar-free gum or candy. Foods that contain artificial sweeteners such as sorbitol, mannitol, isomalt, or xylitol. Foods that contain honey, high-fructose corn syrup, or agave. Bouillon, vegetable stock, beef stock, and chicken stock. Garlic and onion powder. Condiments made with onion, such ashummus, chutney, pickles, relish, salad dressing, and salsa. Tomato paste. Beverages Chicory-based drinks. Coffee substitutes. Chamomile tea. Fennel tea. Sweet or fortified tracy such as port or barbara. Diet soft drinks made with isomalt, mannitol, maltitol, sorbitol, or xylitol. Apple, pear, and lorena juice. Juices with high-fructose corn syrup. The items listed above may not be a complete list of foods and beverages you should avoid. Contact a dietitian for more information. Summary FODMAP stands for fermentable oligosaccharides, disaccharides, monosaccharides, and polyols. These are sugars that are hard for some people to digest. A low-FODMAP eating plan is a short-term diet that helps to ease symptoms of certain bowel diseases. The eating plan usually lasts up to 6 weeks. After that, high-FODMAP foods are reintroduced gradually and one at a time. This can help you find out which foods may be causing symptoms. A low-FODMAP eating plan can be complicated. It is best to work with a dietitian who has experiencewith this type of plan. This information is not intended to replace advice given to you by your health care provider. Make sure you discuss any questions you have with your health care provider. Document Released: 2018-02-06 Document Updated: 2024-05-26 Document Reviewed: 2024-05-26 Elsevier Patient Education ? 2024 [employer]. documented in this encounter Plan of Treatment Scheduled Orders Name Type Priority Associated Diagnoses Orde r Schedule Bacterial Vaginosis Panel Microbiology Routine Subacute vaginitis Ordered: 03/17/2025 Chlamydia/N. Gonorrhoeae RNA, TMA, Vaginal Microbiology Routine Subacute vaginitis Ordered: 03/17/2025 documented as of this encounter Procedures Procedure Name Priority Date/Time Associated Diagnosis Comments POCT , URINE Routine 03/17/2025 7:32 PM EDT Subacute vaginitis Bloating symptom documented in this encounter Results * POCT Urine (03/17/2025 7:32 PM EDT) Preg Test, Ur Negative Negative, Indeterminate, None Detected, Invalid, Specimen unsatisfactory for evaluation, Weakly Positive, 2+ QC Media Lot # [id number] Lot# Expiration Date [id number] Urine 03/17/2025 7:32 PM EDT us Oliverio Quinn MD POINT OF CARE TEST ENTER/ED IT ORDERABLES Final Result documented in this encounter Visit Diagnoses Diagnosis Subacute vaginitis- Primary Bloating symptom Flatulence, eructation, and gas pain documented in this encounter
--- OUTSIDE RECORDS SUMMARY | 2025-03-18 15:12 | XMS_ITS | Clinical Summary ---
Author Organization [employer] Address [address] [facility] [address] [place] [address] Care Team Providers Care Housetrailer Servicer Name Role Phone Unavailable Primary Care Provider Unavailabl e Allergies No known active allergies Medications Vit-Fe Fumarate-FA ( Vitamins) 28-0.8 MG tablet Active pyridoxine (Vitamin B-6) 25 MG tablet one pill 3 times a day as needed for nausea 01/25/2021 Active metroNIDAZOLE (Flagyl) 500 MG tabletIndication s:Subacute vaginitis Take 1 tablet (500 mg) by mouth 2 times daily for 7 days. 14 tablet 03/17/2025 5 Active Active Problems No known active problems Encounters Date Type Department Care Team Description 03/17/2025 6:40 PM EDT Office Visit [facility] [address] [place] [phone] Oliverio Quinn MD Subacute vaginitis (Primary Dx); Bloating symptom 03/17/2025 Travel from Last 3 Months Immunizations Immunization Administration Dates Next Due Moderna Covid-19 Vaccine 6+ Bivalent 08/22/2022 Social History Tobacco Use Types Packs/Day Years Used Date Smoking Tobacco: Never Passive Smoke Exposure: Never Smokeless Tobacco: Never Tobacco Cessation:Counseling Given: Not Answered Housing Stability Answer Date Recorded What is your housing situation today? I have kim dang 05/01/[address] you [...] not to disclose 2021 10:38 AM EDT Last Filed Vital Signs Vital Sign Reading [...] Mass Index 32.65 03/17/2025 6:45 PM EDT Plan of Treatment Health Maintenance Due Date Last Done Comments Depression Screening 1999 Disability Screening 1999 Alcohol/Substance Use Screening 2011 Family Planning (PISQ) 2014 Pap Smear 2020 SDOH Screening 01/03/2024 01/02/2023 COVID-19 Vaccine ( season) 2025 08/22/2022, 11/27/2020, 10/30/2020 Influenza Vaccine (#1) 2025 , 06/17/2021, 07/17/2017, Additional history exists Tobacco Screening 03/17/2026 03/17/2025 DTaP/Tdap/Td Vaccines (8 - Td or Tdap) 10/10/2032 10/10/2022, 06/17/2021, 08/10/2010, Additional history exists Zoster Vaccines (1 of 2) 2049 RSV Patients and Patients Aged 60 years or older (1 - 1-dose 75+ series) 2074 HIB Vaccines Aged Out 1999, 10/25, 1999, Additional history exists No longer eligible based on patient's age to complete this topic IPV Vaccines Completed 08/15/2003, 10/25, 1999, Additional history exists Hepatitis B Vaccines Completed 11/18/2008, 11/18/2008, 06/17/2008, Additional history exists HPV Vaccines Completed 10/08/2013, 09/24, 05/28/2013, Additional history exists Meningococcal Vaccine Completed 07/17/2017, 011 Hepatitis C Screening Completed 07/07/2022, 021 HIV Screening Completed 01/30/2023, 06/26, 02/11/2021 Hepatitis A Vaccines Aged Out No long er eligible based on patient's age to complete this topic Meningococcal B Vaccine Aged Out No l onger eligible based on patient's age to complete this topic Pneumococcal Vaccine: Pediatrics (0 to 5 Years) and At-Risk Patients (6 to 49) Years Aged Out No longer eligible based on patient's age to complete this topic RSV under 20 months Aged Out No longe r eligible based on patient's age to complete this topic Rotavirus Vaccines Aged Out No longer eligible based on patient's age to complete this topic Procedures Procedure Name Priority Date/Time Associated Diagnosis Comments POCT , URINE Routine 03/17/2025 7:32 PM EDT Subacute vaginitis Bloating symptom [facility] HISTORICAL HEPATITIS C ANTIBODY Routine 02/11/2021 11:15 AM EDT from Last 3 Months or Most Recently Relevant to Health Maintenance Results * POCT Urine (03/17/2025 7:32 PM EDT) Preg Test, Ur Negative Negative, Indeterminate, None Detected, Invalid, Specimen unsatisfactory for evaluation, Weakly Positive, 2+ QC Media Lot # [id number] Lot# Expiration Date [id number] Urine 03/17/2025 7:32 PM EDT Oliverio Quinn MD POINT OF CARE TEST ENTER/ED IT ORDERABLES Final Result * Hepatitis C Antibody (02/11/2021 11:15 AM EDT) Hepatitis C Antibody Nonreactive Nonreactive [facility] Comment: Antibodies to HCV not detected; does not exclude early acute HCV infection. HIV AB/AG Nonreactive Nonreactive [facility] Comment: HIV-1 p24 Ag and/or HIV-1/HIV-2 Ab not detected. A test result that is nonreactive does not exclude the possibility of exposure to or infection with HIV-1 and/or HIV-2. Nonreactive results in this assay for individuals with prior exposure to HIV-1 and/or HIV-2 may be due to antigen and antibody levels that are below the limit of detection of this assay. The [employer] HIV Ag/Ab Combo assay result and supplemental assay results should be interpreted in conjunction with the patient's clinical presentation, history and other laboratory results. If the results are inconsistent with clinical evidence, additional testing is suggested to confirm the result. Hepatitis B Surface Antigen Negative Negative [facility] 02/11/2021 11:1 5 AM EDT Pennie Taveras HISTORICAL/NON ORDERABLE LABS Fi nal Result [facility] [address] from Last 3 Months or Most Recently Relevant to Health Maintenance Insurance hoozin HSN FULL
--- OUTSIDE RECORDS SUMMARY | 2025-03-18 15:12 | XMS_ITS | Clinical Summary ---
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, unspecified 07/27/2015 Immunizations Immunization Administration Dates Next Due BCG 1999 DTP / HiB 1999,1999,1999 DTaP 03/05/2003,03/19/2001 H1N1 05/12/2009 HPV, Quadrivalent 10/08/2013,05/28/2013,11/14/19 12 Hep B, ped/adol 11/18/2008,06/17/2008,05/13/2008 IPV 08/15/2003, 0,1999,07/16 Influenza 07/21/2009,04/28/2008 Influenza, injectable, quadr ivalent, preservative free 07/17/2017,07/21/2014 Influenza, intranasal, quadrivalent 07/27/2015,1 07/29/2012 MMR 06/17/2008,2005,02/02/2000 Meningococcal Conj (Menactra) MCV4P 07/17/2017,0 08/10/2010 Tdap 08/10/2010 Varicella 05/25/2008 Social History Tobacco Use Types Packs/Day Years Used Date Smoking Tobacco: Never Smokeless Tobacco: Never Alcohol Use Standard Drinks/Week Comments Yes 0 (1 standard drink = 0.6 oz pure alcohol) Eh drinken a couple of times, not over excessive, just a couple of drinks Comments Unknown Sex and Gender Information Value Date Recorded Sex Assigned at Not on file Legal Sex Female 4:19 PM EST Gender Identity Not on file Sexual Orientation Not on file Last Filed Vital Signs Vital Sign Reading Time Taken Comments Blood Pressure 118/71 07/17/2017 9:39 AM EST Pulse 66 07/17/2017 9:39 AM EST Temperature 37.1 C (98.7 F) 05/15/2019 5:55 PM EST Respiratory Rate - - Oxygen Saturation - - Inhaled Oxygen Concentration - - Weight 66 kg (145 lb 6.4 oz) 05/04/2019 9:37 AM EST Height 154.9 cm (5' 1 ) 07/17/2017 9:39 AM EST Body Mass Index 27.47 07/17/2017 9:39 AM EST Plan of Treatment Health Maintenance Due Date Last Done Comments Varicella Vaccines (2 of 2 - 2-dose childhood series) 08/24/2015 06/17/2008, 05/25/2008 Influenza Vaccines (#1) 2025 07/07/19, 06/17/2021, 07/17/2017, Additional history exists COVID-19 Vaccine ( - season) 2025 11/27/2020, 10/30/2020 DTaP,Tdap,and Td Vaccines (8 - Td or Tdap) 10/10/2032 10/10/2022, 06/17/2021, 08/10/2010, Additional history exists HIB Vaccines Aged Out 1999, 10/25, 1999, Additional history exists No longer eligible based on patient's age to complete this topic IPV Vaccines Completed 08/15/2003, 10/25, 1999, Additional history exists MMR Vaccines Completed 06/17/2008, 05/27, 2005, Additional history exists Hepatitis B Vaccines Completed 11/18/2008, 06/17/2008, 05/13/2008 HPV Vaccines Completed 10/08/2013, 08/2012, 11/14/2011 Meningococcal Vaccine Completed 07/17/2017, 011 Hepatitis A Vaccines Aged Out No long er eligible based on patient's age to complete this topic Men B Vaccine Aged Out No longer elig ible based on patient's age to complete this topic Pneumococcal Vaccine Aged Out No long er eligible based on patient's age to complete this topic Procedures * Due to [place] pushd law, this organization might not be sharing sensitive test results. Procedure Name Priority Date/Time Associated Diagnosis Comments CHLAMYDIA TRACHOMATIS RNA TMA, UROGENITAL (REFL) Routine 07/17/2017 10:52 AM EST Well adult exam from Last 3 Months or Most Recently Relevant to Health Maintenance Results * Due to [place] pushd law, this organization might not be sharing sensitive test results. * Chlamydia trachomatis probe (07/17/2017 10:52 AM EST) Chlamydia trachomatis RNA, TMA Not Detected Not Detected 07/18/2017 10:25 AM EST GUICHO HORTON 07/17/2017 10:5 2 AM EST 07/17/2017 11:18 AM EST us Miguelina Pulido NP LAB MICROBIOLOGY - GENERAL OR DERABLES Final Result GUICHO HORTON from Last 3 Months or Most Recently Relevant to Health Maintenance
--- OUTSIDE RECORDS SUMMARY | 2025-03-18 15:12 | XMS_ITS | Encounter Summary ---
Author Organization [employer] Address [address] [facility] 7[address] [place] [address] Care Team Providers Care Acoustical Tile Drill Press Operator Name Role Phone Rosey Rojas PHOTOGRAPHIC EQUIPMENT TECHNICIAN Primary Care Provider [phone] Miya Parker NP Primary Care Provider [phone] Encounter Details Date Type Department Care Team (Late st Contact Info) Description 05/31/2022 Orders Only [facility] [address] [place] [address] Cornelia Olivarez RN [address] [place] [address] Social History Tobacco Use Types Packs/Day Years Used Date Smoking Tobacco: Never Assessed Comments Unknown Sex and Gender Information Value Date Recorded Sex Assigned at Female 04/25/2022 10:38 AM EDT Legal Sex Female 10:38 AM EDT Gender Identity Female 04/25/2022 10:38 AM EDT Sexual Orientation Choose not to disclose 2021 10:38 AM EDT documented as of this encounter Plan of Treatment Not on file documented as of this encounter Procedures Procedure Name Priority Date/Time Associated Diagnosis Comments OBSX1 Routine 02/23/2023 7:37 PM EDT CBC WITH AUTO DIFFERENTIAL Routine 02/23/2023 5:49 PM EDT BETA-HCG, QUANTITATIVE (TUMOR MARKER) Routine 02/23/2023 5:49 PM EDT HCG, QL, URINE Routine 02/23/2023 5:49 PM EDT URINALYSIS WITH REFLEX MICROSCOPIC Routine 02/23/2023 5:49 PM EDT APTT Routine 02/23/2023 5:49 PM EDT PROTHROMBIN TIME-INR Routine 02/23/2023 5:49 PM EDT LIPASE Routine 02/23/2023 5:49 PM EDT COMPREHENSIVE METABOLIC PANEL Routine 02/23/2023 5:49 PM EDT documented in this encounter Results * OBSX1 (02/23/2023 7:37 PM EDT) OBS1 POSITIVE NEGATIVE [facility] 02/23/2023 7:37 PM EDT 02/23/2023 7:40 PM EDT [facility] External Provider LAB BLO OD ORDERABLES Final Result Performing Organization Address City/State/[facility] Co de Phone Number [facility] [address] [place] [phone] * hCG, Total, Quantitative (02/23/2023 5:49 PM EDT) HCG Quantitative <2 mIU/mL [facility] Comment:Weeks post LMP Appro ximate hCG(Last Menstrual Period) Range (mIU/ml)3 - 4 weeks 9 - 1304 - 5 weeks 75 - 2,6005 - 6 weeks 850 - 20,8006 - 7 weeks 4000 - 100,2007 - 12 weeks 11,500 - 289,69363 - 16 weeks 18,300 - 137,01789 - 29 weeks (2nd trimester) 1,400 - 53,83165 - 41 weeks (3rd trimester) 940 - 60,000The Salgado B- hCG assay is used for the early detection ofpregnancy; it cannot be used to diagnose any conditionunrelated to . If a B-hCG level is not supportedby the clinical evidence, results should be confirmed by analternative method (qualitative urine hCG, for example). 02/23/2023 5:49 PM EDT 02/23/2023 5:53 PM EDT us [facility] External Provider LAB BLO OD ORDERABLES Final Result [facility] [address] [place] [address] [phone] * (ABNORMAL) CBC auto differential (02/23/2023 5:49 PM EDT) White Blood Count 9.3 4.8 - 10.8 X10*3/uL [facility] Red Blood Count 4.69 4.20 - 5.50 X10*6/uL [facility] Hemoglobin 12.2 12.0 - 16.0 g/dl [facility] Hematocrit 37.4 37.0 - 47.0 % [facility] Mean Corpuscular Volume 79.7(L) 80.0 - 98.0 fL [facility] Mean Corpuscular Hemoglobin 26.0(L) 27.0 - 33.0 pg [facility] Mean Corpuscular HGB Conc 32.6 31.0 - 35.0 g/dl [facility] Red Cell Distribution Width 14.7 11.0 - 16.0 % [facility] Platelet Count 350 160 - 400 X10*3/uL [facility] Mean Platelet Volume 10.1 9.4 - 12.3 fL [facility] Neutrophils Percent Auto 53.2 45 - 73 % [facility] Imm Gran Pct Auto 0.3 0.0 - 0.4 % [facility] Lymphocytes Percent Auto 35.7 20 - 40 % [facility] Monocytes Percent Auto 7.2 2 - 11 % [facility] Eosinophils Percent Auto 2.8 0 - 4 % [facility] Basophils Percent Auto 0.8 0 - 2 % [facility] NRBC Pct Auto 0.0 0.0 - 0.2 /100WBC [facility] Neutrophils Absolute Auto 4.9 2.0 - 8.3 x10*3/uL [facility] Imm Gran Abs Auto 0.03 0.00 - 0.03 X10*3/uL [facility] Lymphocytes Absolute Auto 3.3 1.2 - 4.9 X10*3/uL [facility] Monocytes Absolute Auto 0.7 0.1 - 1.2 X10*3/uL [facility] Eosinophils Absolute Auto 0.3 0.0 - 0.4 X10*3/uL [facility] Basophils Absolute Auto 0.1 0.0 - 0.2 X10*3/uL [facility] NRBC Abs Auto 0.000 0.0 - 0.012 X10*3/uL [facility] 02/23/2023 5:49 PM EDT 02/23/2023 5:53 PM EDT [facility] External Provider LAB BLO OD ORDERABLES Final Result Performing Organization Address City/[facility]/ZIP Co de Phone Number [facility] [address] [place] [address] [phone] * Lipase (02/23/2023 5:49 PM EDT) Pathologist [facility] Lipase 47 8 - 78 U/L [facility] 02/23/2023 5:49 PM EDT 02/23/2023 5:53 PM EDT Generic External Data Provider LAB BLOOD ORDERAB LES Final Result Performing Organization Address [facility] de Phone Number [facility] [address] [place] [phone] * (ABNORMAL) Comprehensive Metabolic Panel (02/23/2023 5:49 PM EDT) Sodium 138 135 - 145 mmol/L [facility] Potassium 3.9 3.3 - 5.1 mmol/L [facility] Chloride 108 96 - 108 mmol/L [facility] Carbon Dioxide 20(L) 22 - 29 mmol/L [facility] Anion Gap 14 12 - 20 [facility] Urea Nitrogen (BUN) 13 9 - 16 mg/dL [facility] Creatinine, Serum 0.71 0.5 - 1.4 mg/dL [facility] Creatinine Clr Calc Pharmacy 108.9 [facility] Comment:Provided height and weight: 154.94 cm,68.3 kg.eGFR (calculated from the MDRD study equation) and eCrCl(calculated from the Cockcroft-Gault equation) are based ondifferent parameters and may not yield comparable results.If eCrCl result is absurd, please check patient'sheight/weight. Estimated Glomerular Filt Rate >60 [facility] Comment:NOTE: For -Am erican individuals, multiply the result by 1.210.Chronic Kidney Disease: Estimated GFR < 60 mL/min/1.59w1Mwounh Kidney Disease: Estimated GFR < 15 mL/min/1.73m2 Glucose 97 60 - 115 mg/dL [facility] Calcium 9.5 8.4 - 10.2 mg/dL [facility] Bilirubin, Total 0.2 0.0 - 1.0 mg/dL [facility] Aspartate Amino Transferase 20 5 - 31 U/L [facility] Alanine Aminotransferase 21 0 - 31 U/L [facility] Total Protein 8.4(H) 6.5 - 8.0 g/dL [facility] Albumin Level 4.5 3.5 - 5.0 g/dL [facility] Alkaline Phosphatase 149(H) 39 - 117 U/L [facility] 02/23/2023 5:49 PM EDT 02/23/2023 5:53 PM EDT us [facility] External Provider LAB BLO OD ORDERABLES Final Result [facility] [address] [place] [phone] * Partial Thromboplastin Time, Activated (APTT) (02/23/2023 5:49 PM EDT) Partial Thromboplastin Time 33.9 26.0 - 36.4 SEC [facility] 02/23/2023 5:49 PM EDT 02/23/2023 5:53 PM EDT Generic External Data Provider LAB BLOOD ORDERAB LES Final Result Performing Organization Address [facility] de Phone Number [facility] [address] [place] [phone] * Prothrombin Time-INR (02/23/2023 5:49 PM EDT) Prothrombin Time 12.1 11.1 - 13.3 SEC [facility] INTERNATIONAL NORM RATIO 1.0 0.9 - 1.1 [facility] Comment:INTERNATIONAL NORMAL IZED RATIO (INR) REFERENCE RANGES Reference RangeFor patients not on anticoagulant therapy: 0.9 - 1.1INR ranges for oral anticoagulanttherapy:For prevention and treatment of venous thrombosis and pulmonary embolism: 2.0 - 3.0For acute myocardial infarction with aspirin therapy: 2.0 - 3.0For acute myocardial infarction without aspirin therapy: 3.0 - 4.0For patients with mechanical prosthetic heart valves: 2.5 - 3.5 02/23/2023 5:49 PM EDT 02/23/2023 5:53 PM EDT [facility] External Provider LAB BLO OD ORDERABLES Final Result Performing Organization Address [facility] Phone Number [facility] [address] [place] [phone] * HCG, Qualitative, Urine (02/23/2023 5:49 PM EDT) Urine NEGATIVE NEGATIVE [facility] Comment:This test was develo ped to detect early . Falsenegative results may occur after the 5th - 7th week ofpregnancy when using this test method. If clinicallyindicated, consider a serum hCG. 02/23/2023 5:49 PM EDT 02/23/2023 5:53 PM EDT [facility] External Provider LAB URI NE ORDERABLES Final Result Performing Organization Address [facility] Co de Phone Number [facility] [address] [place] [phone] * (ABNORMAL) Urinalysis w/reflex microscopic (02/23/2023 5:49 PM EDT) Color Urine Yellow [facility] Appearance Urine Clear [facility] PH 5.5 5.0 - 9.0 [facility] Glucose Urine UA Negative Negative mg/dL [facility] Urine Blood Negative Negative [facility] Specific [place] - Urine >=1.030(H) 1.005 - 1.025 [facility] Urine Protein Negative Neg-Trace mg/dL [facility] Urine Ketones Negative Negative mg/dL [facility] Nitrite Urine Negative Negative [facility] Leukocyte Esterase Urine Negative Negative [facility] 02/23/2023 5:49 PM EDT 02/23/2023 5:53 PM EDT Narrative [facility] - 02/23/2023 5:57 PM EDT 1745Urine, Clean Catch [facility] External Provider LAB URI NE ORDERABLES Final Result Performing Organization Address [facility] Co de Phone Number [facility] [address] [place] [phone] documented in this encounter Visit Diagnoses Not on filedocumented in this encounter Care Teams Acoustical Tile Drill Press Operator Relationship Specialty Start Date End Date Rosey Rojas FNP [address] [place] [address] PCP - General Family Medicine 03/31/22 08/23/23 Miya Parker NP [address] [place] [address] PCP - General Family Medicine 08/24/23 10/19/23 documented as of this encounter
--- OUTSIDE RECORDS SUMMARY | 2025-03-18 15:12 | XMS_ITS | Encounter Summary ---
Author Organization [employer] Address [address] [facility] [address] [place] [address] Care Team Providers Care Thermostat Maker Name Role Phone Rosey RojasP Primary Care Provider [phone] Miya Parker NP Primary Care Provider [phone] Reason for Visit * Reason Onset Date Comments TP Appt required 01/18/2023 Encounter Details Date Type Department Care Team (Late st Contact Info) Description 01/18/2023 Telephone [facility] [address] [place] [address] Rosey Rojas FNP [address] [place] [address] TP Appt required Social History Tobacco Use Types Packs/Day Years Used Date Smoking Tobacco: Never Assessed Comments Unknown Sex and Gender Information Value Date Recorded Sex Assigned at Female 04/25/2022 10:38 AM EDT Legal Sex Female 10:38 AM EDT Gender Identity Female 04/25/2022 10:38 AM EDT Sexual Orientation Choose not to disclose 2021 10:38 AM EDT documented as of this encounter Miscellaneous Notes * Telephone Encounter - Mamadou Gordillo - 01/18/2023 9:58 AM EDT Pt needs TP with Assign provider. Last appt was on 01/25/[address] Alberto. Please contact pt at [phone] documented in this encounter Plan of Treatment Not on file documented as of this encounter Visit Diagnoses Not on filedocumented in this encounter Care Teams Thermostat Maker Relationship Specialty Start Date End Date Rosey Rojas FNP [address] [place] [address] PCP - General Family Medicine 03/31/22 08/23/23 Miya Parker NP [address] [place] [address] PCP - General Family Medicine 08/24/23 10/19/23 documented as of this encounter
--- OUTSIDE RECORDS SUMMARY | 2025-03-18 15:12 | XMS_ITS | Encounter Summary ---
Author Organization [facility] Address [address] [place] [address] Phone Care Team Providers Care Ledge Man Name Role Phone Elena Chavez MD Primary Care Provider [phone] Encounter Details Date Type Department Care Team (Late st Contact Info) Description 02/01/2017 Conversion Encounter [facility] - [address], [address] [place] [address] Elena Chavez MD [address] [place] [address] Social History Tobacco Use Types Packs/Day Years Used Date Smoking Tobacco: Never Assessed Comments Unknown Sex and Gender Information Value Date Recorded Sex Assigned at Not on file Legal Sex Female 4:19 PM EST Gender Identity Not on file Sexual Orientation Not on file documented as of this encounter Plan of Treatment Not on file documented as of this encounter Visit Diagnoses Not on filedocumented in this encounter Care Teams Ledge Man Relationship Specialty Start Date End Date Elena Chavez MD [address] [place] [address] PCP - General 08/16/16 02/02/21 documented as of this encounter
--- OUTSIDE RECORDS SUMMARY | 2025-03-18 15:12 | XMS_ITS | Encounter Summary ---
Author Organization [employer] Address [address] [facility] [place] [address] Care Team Providers Care Monorail Charger Operator Name Role Phone Unavailable Primary Care Provider Unavailabl e Encounter Details Date Type Department Care Team (Latest Contact Info) Description 03/17/2025 Travel Social History Tobacco Use Types Packs/Day Years Used Date Smoking Tobacco: Never Passive Smoke Exposure: Never Smokeless Tobacco: Never Housing Stability Answer Date Recorded What is [...]
[2025-03-18 17:11] LABS: Bacterial Vaginosis PCR NEGATIVE (Negative); Candida Group PCR NOT DETECTED (Not Detect); Candida glab krusei PCR NOT DETECTED (Not Detect); Trichomonas vaginalis PCR NOT DETECTED (Not Detect)
[2025-03-18 17:37] LABS: CT PCR NOT DETECTED (Not Detect.); NG PCR NOT DETECTED (Not Detect.)
== END 2025-03-17 12:20 | disposition home or self-care (01) ==
LOC: HO.HHCLNP 12:19
PROVIDERS: Visit Provider Internal Medicine
DX: N76.1 Subacute and chronic vaginitis (principal)
CPT/HCPCS: 81515; 87491; 87591

== ENCOUNTER 2025-04-10 18:50 | Outpatient (REF) | payer MEDICAID, OTHER, SELFPAY ==
--- OUTSIDE RECORDS SUMMARY | 2025-04-10 11:00 | XMS_ITS | Encounter Summary ---
Author Organization [employer] Address [address] [place] [address] [address] [place] [address] Care Team Providers Care Assistant Speech Language Pathologist Name Role Phone Unavailable Primary Care Provider Unavailabl e Reason for Referral * Imaging (Urgent) - Authorized Specialty Diagnoses / Procedures Referred By Contac t Referred To Contact Radiology Diagnoses Other mechanical complication of intrauterine contraceptive device, initial encounter Procedures US Pelvis Transvaginal Alida Velasquez CNM [address] [place] [address] Phone: tel: fax: [address] Phone: tel: fax: Referral ID Status Reason Start Date Expiration Date V isits Requested Visits Authorized [id number] Authorized 04/10/2025 04/10/2026 1 1 * Imaging (Urgent) - Authorized Specialty Diagnoses / Procedures Referred By Contac t Referred To Contact Radiology Diagnoses Other mechanical complication of intrauterine contraceptive device, initial encounter Procedures Us Pelvis complete Alida Velasquez CNM [address] [place] [address] Phone: tel: fax: [address] Phone: tel: fax: Referral ID Status Reason Start Date Expiration Date V isits Requested Visits Authorized [id number] Authorized 04/10/2025 04/10/2026 1 1 Encounter Details Date Type Department Care Team (Latest Contact Info) Description 04/10/2025 11:00 AM EDT Procedure Visit [facility] MEDICINE [address] [place] [address] Alida Velasquez CNM [address] [place] [address] Other mechanical complication of intrauterine contraceptive device, initial encounter (Primary Dx); Cervical cancer screening; Abnormal uterine bleeding; Vaginal odor Social History Tobacco Use Types Packs/Day Years Used Date Smoking Tobacco: Never Passive Smoke Exposure: Never Smokeless Tobacco: Never Tobacco Cessation:Counseling Given: Not Answered Housing Stability Answer Date Recorded What is your housing situation today? I have kim alton 04/10/[address] you li ve. Do you have problems with any of the following? None of the above 04/10/2025 Food Insecurity Answer Date Recorded Within the past 12 months, y ou worried that your food would run out before you got money to buy more: Never True 04/10/2025 Within the past 12 months,th e food you bought just didn't last and you didn't have enough money to get more: Never True Transportation Answer Date Recorded In the past 12 months, has l ack of transportation kept you from medical appts, meetings, work or from getting things needed for daily living? No 04/10/2025 Utilities Answer Date Recorded In the past 12 months, has t he [employer], gas, oil or water company threatened to shut off services in your home? I am not sure 04/10/2025 Depression Answer Date Recorded Patient Health Questionnaire-2 Score 0 04/10/2025 Comments No Intention Date Recorded No desire to become (finding) 1 Sex and Gender Information Value Date Recorded Sex Assigned at Female 04/25/2022 10:38 AM EDT Legal Sex Female 10:38 AM EDT Gender Identity Female 04/25/2022 10:38 AM EDT Sexual Orientation Choose not to disclose 2021 10:38 AM EDT documented as of this encounter Last Filed Vital Signs Vital Sign Reading Time Taken Comments Blood Pressure 104/70 04/10/2025 11:19 AM EDT Pulse 81 04/10/2025 11:19 AM EDT Temperature 36.4 C (97.6 F) 04/10/2025 11:19 AM EDT Respiratory Rate 14 04/10/2025 11:19 AM EDT Oxygen Saturation 98% 04/10/2025 11:19 AM EDT Inhaled Oxygen Concentration - - Weight 76.7 kg (169 lb) 04/10/2025 11:19 AM EDT Height - - Body Mass Index 32.46 03/17/2025 6:45 PM EDT documented in this encounter Functional Status * Over the past 2 weeks, how often have you been bothered by any of the following problems? Question Answer Date of Assessment Author Patient Health Questionnaire -2 Score 0 04/10/2025 11:21 AM EDT Roselia Marsh MA * Little interest or pleasure in doing things Answer Date of Assessment Author Not at all 04/10/2025 11:21 AM EDT Roselia Marsh MA * Feeling down, depressed, or hopeless Answer Date of Assessment Author Not at all 04/10/2025 11:21 AM EDT Roselia Marsh MA * Trouble falling or staying asleep, or sleeping too much Answer Date of Assessment Author Not at all 04/10/2025 11:21 AM EDT Roselia Marsh MA * Feeling tired or having little energy Answer Date of Assessment Author Several days 04/10/2025 11:21 AM EDT Roselia Marsh MA * Poor appetite or overeating Answer Date of Assessment Author Not at all 04/10/2025 11:21 AM EDT Roselia Marsh MA * Feeling bad about yourself - or that you are a failure or have let yourself or your family down Answer Date of Assessment Author Not at all 04/10/2025 11:21 AM EDT Roselia Marsh MA * Moving or speaking so slowly that other people could have noticed? Or the opposite - being so fidgety or restless that you have been moving around a lot more than usual. Answer Date of Assessment Author Not at all 04/10/2025 11:21 AM EDT Roselia Marsh MA * Thoughts that you would be better off or hurting yourself in some way Answer Date of Assessment Author Not at all 04/10/2025 11:21 AM Roselia Murphy MA * Over the last 2 weeks, how often have you been bothered by any of the following problems? Question Answer Date of Assessment Author Feeling nervous, anxious, or on edge 1 04/10/2025 11:22 AM EDRoselia Zeng MA Not being able to stop or co ntrol worrying 0 04/10/2025 11:22 AM EDRosleia Zeng MA Worrying too much about diff erent things 0 04/10/2025 11:22 AM Roselia Murphy MA Trouble relaxing 1 04/10/2025 11:22 AM Roselia Murphy MA Being so restless that it is hard to sit still 0 04/10/2025 11:22 AM Roselia Murphy MA Becoming easily annoyed or irritable 2 04/10/2025 11:22 AM Roselia Murphy MA Feeling afraid as if somethi ng awful might happen 0 04/10/2025 11:22 AM Roselia Murphy MA GILDARDO-7 Total Score 4 04/10/2025 11:22 AM Roselia Murphy MA documented as of this encounter Progress Notes * Alida Velasquez CNM - 04/10/2025 11:00 AM EDTAssociated Order(s): IUD Management Subjective Patient ID: Jennifer Connolly is a 25 y.o. female who presents for pap and IUD removal Mirena inserted 2022. Pap NIL 2020. G2.. Notes new onset light bleeding for past 3 months, as well as vaginal odor and pelvic pain. Would like IUD removal today Gonorrhea/Chlamydia/trichomonas/bacterial vaginosis/yeast neg 02/2025. Urine hcg neg 02/2025. Not planning in the near future, but would like another child at some point. 1 mcc AMAB partner, last sexually active more than a month ago. Review of Systems Genitourinary: Positive for menstrual problem, pelvic pain and vaginal bleeding. Negative for dyspareunia, dysuria, vaginal discharge and vaginal pain. Objective BP 104/70 (BP Location: Left arm, Patient Position: Sitting, BP Cuff Size: Adult) Pulse 81 Temp97.6 ??F (36.4 ??C) (Oral) Resp 14 Wt 169 lb (76.7 kg) LMP 04/02/2025 SpO2 98% BMI 32.46 kg/m?? 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 Constitutional: Appearance: Normal appearance. Genitourinary: General: Normal vulva. Labia: Right: No rash, tenderness, lesion or injury. Left: No rash, tenderness, lesion or injury. Vagina: Normal. No signs of injury and foreign body. No vaginal discharge, erythema, tenderness, bleeding or lesions. Cervix: No cervical motion tenderness, discharge, friability, lesion, erythema, cervical bleeding or eversion. Uterus: Normal. Not enlarged and not tender. Adnexa: Right adnexa normal and left adnexa normal. Right: No mass, tenderness or fullness. Left: No mass, tenderness or fullness. Comments: IUD strings not noted, unable to be teased out with cytobrush. IUD not palpable on bimanual. Neurological: Mental Status: She is alert. Psychiatric: Mood and Affect: Mood normal. Behavior: Behavior normal. Assessment/Plan Diagnoses and all orders for this visit: Other mechanical complication of intrauterine contraceptive device, initial encounter - Us Pelvis complete; Future - US Pelvis Transvaginal; Future Unable to retreive strings with cytobrush or alligator forceps. Will get ultrasound to localize IUD, KUB if indicated. Will use condoms for now. EC prescription sent in for future use. Let me know ifnot contacted about ultrasound appointment by early next week. Seek care urgently if worsening pain or heavy bleeding. Cervical cancer screening - Pap Smear Pap sent. Repeat 3 years if normal. Will contact with results. Abnormal uterine bleeding - POCT , urine manually resulted Benign pelvic exam today, test negative. Will send pap, ultrasound ordered to localize IUD Vaginal odor - POCT fern test, vaginal fluid manually resulted Negative wet mount. If bacterial vaginosis/yeast on pap, will treat. Other orders - ulipristal (Amanda) 30 mg tablet; Take one tablet by mouth up to five days after sex. Do not use more than once per menstrual cycle. If repeat dose is needed in same cycle, please contact prescriber. IUD Management Performed by: Alida Velasquez CNM Authorized by: Alida Velasquez CNM Procedure: IUD removal Consent obtained by patient, parent, or legal power of sports attorney - including discussion of procedurerisks and benefits, patient questions answered, and patient education provided: yes Reason for removal: patient request Strings visualized: no Cervix cleaned with: iodopovidone Tenaculum applied to cervix: no Cervix manually dilated: no IUD grasped by forceps: no IUD removed: no Unable to remove IUD, refer for: ultrasound Removal comments: Unable to retrieve strings with alligator forceps after betadine prep. Will checkultrasound. documented in this encounter Plan of Treatment Upcoming Encounters Date Type Department Care Team (Late st Contact Info) Description 04/14/2025 4:00 PM EDT Office Visit [facility] MED & PEDS [address] [place] [address] Oliverio Quinn MD [address] [place] [address] 04/17/2025 9:30 AM EDT Office Visit [facility] ADULT DENTAL [address] [place] [address] Singer-AndrewsEmily harris, DDS [address] [place] [address] Scheduled Orders Name Type Priority Associated Diagnoses Orde r Schedule Pap Smear Pathology and Cytology Routine Cervical cancer screening Ordered: 04/10/2025 Us Pelvis complete Imaging Urgent Other mechanical complication of intrauterine contraceptive device, initial encounter Expected: 04/10/2025, Expires: 04/10/2026 US Pelvis Transvaginal Imaging Urgent Other mechanical complication of intrauterine contraceptive device, initial encounter Expected: 04/10/2025, Expires: 04/10/2026 documented as of this encounter Procedures Procedure Name Priority Date/Time Associated Diagnosis Comments POCT WET MOUNT/CHANDU Routine 04/10/2025 11 :51 AM EDT Vaginal odor POCT , URINE Routine 04/10/2025 11:33 AM EDT Abnormal uterine bleeding TN REMOVAL INTRAUTERINE DEVICE IUD Routine 04/10/2025 11:00 AM EDT Other mechanical complication of intrauterine contraceptive device, initial encounter documented in this encounter Results * POCT fern test, vaginal fluid manually resulted (04/10/2025 11:51 AM EDT) CHANDU Prep Negative Comment:neg whiff, neg clue, neg trich, neg yeast, neg wbc Vaginal Fluid Vaginal structure / Unknown 04/10/2025 11:51 AM EDT Alida Velasquez CNM POINT OF CARE TEST ENTER/ EDIT ORDERABLES Final Result * POCT , urine manually resulted (04/10/2025 11:33 AM EDT) Preg Test, Ur Negative Negative, Indeterminate, None Detected, Invalid, Specimen unsatisfactory for evaluation, Weakly Positive, 2+ QC Media Lot # [id number] Lot# Expiration Date [id number] Urine 04/10/2025 11:3 3 AM EDT Alida Velasquez CNM POINT OF CARE TEST ENTER/ EDIT ORDERABLES Final Result * TN REMOVAL INTRAUTERINE DEVICE IUD (04/10/2025 11:00 AM EDT) Alida Blanco CNM - 04/10/2025 11:00 AM EDT Alida Velasquez CNM 04/10/2025 11:54 AM IUD Management Performed by: Alida Velasquez CNM Authorized by: Alida Velasquez CNM Procedure: IUD removal Consent obtained by patient, parent, or legal power of sports attorney - including discussion of procedure risks and benefits, patient questions answered, and patient education provided: yes Reason for removal: patient request Strings visualized: no Cervix cleaned with: iodopovidone Tenaculum applied to cervix: no Cervix manually dilated: no IUD grasped by forceps: no IUD removed: no Unable to remove IUD, refer for: ultrasound Removal comments: Unable to retrieve strings with alligator forceps after betadine prep. Will check ultrasound. us Alida Velasquez CNM IN CLINIC/BEDSIDE ORDERAB LES Final Result documented in this encounter Visit Diagnoses Diagnosis Other mechanical complication of intrauterine contraceptive device, initial encounter- Primary Cervical cancer screening Screening for malignant neoplasm of the cervix Abnormal uterine bleeding Unspecified disorder of menstruation and other abnormal bleeding from female genital tract Vaginal odor Unspecified symptom associated with female genital organs documented in this encounter
--- OUTSIDE RECORDS SUMMARY | 2025-04-10 19:56 | XMS_ITS | Encounter Summary ---
Author Organization [employer] Address [address] [facility] [address] [place] [address] Care Team Providers Care Activities Therapist Name Role Phone Unavailable Primary Care Provider Unavailabl e Encounter Details Date Type Department Care Team (Latest Contact Info) Description 04/10/2025 Travel Social History Tobacco Use Types Packs/Day Years Used Date Smoking Tobacco: Never Passive Smoke Exposure: Never Smokeless Tobacco: Never Housing Stability Answer Date Recorded What is your housing situation today? I have kim dang 04/10/[address] you li [...] Health Questionnaire-2 Score 0 04/10/2025 Comments No Sex and Gender Information Value Date Recorded Sex Assigned at Female 04/25/2022 10:38 AM EDT Legal Sex Female 10:38 AM EDT Gender Identity Female 04/25/2022 10:38 AM EDT Sexual Orientation Choose not to disclose 2021 10:38 AM EDT documented as of this encounter Functional Status * Over the [...] 11:21 AM EDT Roselia Marsh MA * Over the last 2 weeks, how often have you been bothered by any of the following problems? Question Answer Date of Assessment Author Feeling nervous, anxious, or on edge 1 04/10/2025 11:22 AM EDT Roselia Marsh MA Not being able to stop or co ntrol worrying 0 04/10/2025 11:22 AM EDT Roselia Marsh MA Worrying too much about diff erent things 0 04/10/2025 11:22 AM EDT Roselia Marsh MA Trouble relaxing 1 04/10/2025 11:22 AM EDT Roselia Marsh MA Being so restless that it is hard to sit still 0 04/10/2025 11:22 AM EDT Roselia Marsh MA Becoming easily annoyed or irritable 2 04/10/2025 11:22 AM EDT Roselia Marsh MA Feeling afraid as if somethi ng awful might happen 0 04/10/2025 11:22 AM EDT Roselia Marsh MA GILDARDO-7 Total Score 4 04/10/2025 11:22 AM EDT Roselia Marsh MA documented as of this encounter Plan of Treatment Upcoming Encounters Date Type Department Care Team (Late st Contact Info) Description 04/14/2025 4:00 PM EDT Office Visit [facility] MED & PEDS [address] [place] [address] Oliverio Quinn MD [address] [place] [address] 04/17/2025 9:30 AM EDT Office Visit [facility] ADULT DENTAL [address] [place] [address] Emily Arzate, DDS [address] [place] [address] documented as of this encounter Visit Diagnoses Not on filedocumented in this encounter
--- OUTSIDE RECORDS SUMMARY | 2025-04-10 19:56 | XMS_ITS | Clinical Summary ---
Author Organization [facility] Address [address] [place] [phone] Phone Care Team Providers Care Legal Executive Assistant Name Role Phone Unavailable Primary Care Provider Unavailabl e Allergies No known active allergies Medications No known medications Active Problems Problem Noted Date Diagnosed Date Pediatric body mass index (B IA) of 85th percentile to less than 95th [...] complete this topic Procedures * Due to [place] law, this organization might not be sharing sensitive test results. Procedure Name Priority Date/Time Associated Diagnosis Comments CHLAMYDIA TRACHOMATIS RNA TMA, UROGENITAL (REFL) Routine 07/17/2017 10:52 AM EST Well adult exam from Last 3 Months or Most Recently Relevant to Health Maintenance Results * Due to [place] law, this organization might not be sharing [...]
--- OUTSIDE RECORDS SUMMARY | 2025-04-10 19:56 | XMS_ITS | Encounter Summary ---
Author Organization [employer] Address [address] [place] [address] 7[address] [place] [address] Care Team Providers Care Payroll Representative Name Role Phone Crystal Rosey SECURITY ADVISOR Primary Care Provider [phone] Miya Parker NP Primary Care Provider [phone] Encounter Details Date Type Department Care Team (Late st Contact Info) Description 05/31/2022 Orders Only [facility] MEDICINE [address] [place] [address] Cornelia Olivarez RN [address] [place] [address] Social History Tobacco Use Types Packs/Day Years [...] 04/14/2025 4:00 PM EDT Office Visit [facility] CHC MED & PEDS [address] [place], [place] [phone] Oliverio Quinn MD [address] [place], [place] [phone] 04/17/2025 9:30 AM EDT Office Visit [facility] ADULT DENTAL [address] [place] [address] Emily Arzate DDS [address] [place] [address] documented as of this encounter Procedures Procedure [...] (02/23/2023 7:37 PM EDT) OBS1 POSITIVE NEGATIVE [facility] 02/23/2023 7:37 PM EDT 02/23/2023 7:40 PM EDT us [facility] External Provider LAB BLO OD ORDERABLES Final Result [facility] [address] [place] [phone] * hCG, Total, Quantitative (02/23/2023 5:49 PM EDT) HCG Quantitative <2 mIU/mL [facility] Comment:Weeks post LMP Appro ximate hCG(Last Menstrual Period) Range (mIU/ml)3 - 4 weeks 9 - 1304 - 5 weeks 75 - 2,6005 - 6 weeks 850 - 20,8006 - 7 weeks 4000 - 100,2007 - 12 weeks 11,500 - 289,66907 - 16 weeks 18,300 - 137,02257 - 29 weeks (2nd trimester) 1,400 - 53,57392 - 41 weeks (3rd trimester) 940 - 60,000The Salgado B- hCG assay is used for the early detection ofpregnancy; it cannot be used to diagnose any conditionunrelated to . If a B-hCG level is not supportedby the clinical evidence, results should be confirmed by analternative method (qualitative urine hCG, for example). 02/23/2023 5:49 PM EDT 02/23/2023 5:53 PM EDT us [facility] External Provider LAB BLO OD ORDERABLES Final Result [facility] [address] [place] [phone] * (ABNORMAL) CBC auto differential (02/23/2023 5:49 PM EDT) White Blood Count 9.3 4.8 - 10.8 X10*3/uL [facility] Red Blood Count 4.69 4.20 - 5.50 X10*6/uL [facility] Hemoglobin 12.2 12.0 - 16.0 g/dl [facility] Hematocrit 37.4 37.0 - 47.0 % [facility] Mean Corpuscular Volume 79.7(L) 80.0 - 98.0 fL [facility] Mean Corpuscular Hemoglobin 26.0(L) 27.0 - 33.0 pg [facility] Mean Corpuscular HGB Conc 32.6 31.0 - 35.0 g/dl [facility] Red Cell Distribution Width 14.7 11.0 - 16.0 % [facility] Platelet Count 350 160 - 400 X10*3/uL [facility] Mean Platelet Volume 10.1 9.4 - 12.3 fL [facility] Neutrophils Percent Auto 53.2 45 - 73 % [facility] Imm Gran Pct Auto 0.3 0.0 - 0.4 % [facility] Lymphocytes Percent Auto 35.7 20 - 40 % [facility] Monocytes Percent Auto 7.2 2 - 11 % [facility] Eosinophils Percent Auto 2.8 0 - 4 % [facility] Basophils Percent Auto 0.8 0 - 2 % [facility] NRBC Pct Auto 0.0 0.0 - 0.2 /100WBC [facility] Neutrophils Absolute Auto 4.9 2.0 - 8.3 x10*3/uL [facility] Imm Gran Abs Auto 0.03 0.00 - 0.03 X10*3/uL [facility] Lymphocytes Absolute Auto 3.3 1.2 - 4.9 X10*3/uL [facility] Monocytes Absolute Auto 0.7 0.1 - 1.2 X10*3/uL [facility] Eosinophils Absolute Auto 0.3 0.0 - 0.4 X10*3/uL [facility] Basophils Absolute Auto 0.1 0.0 - 0.2 X10*3/uL [facility] NRBC Abs Auto 0.000 0.0 - 0.012 X10*3/uL [facility] 02/23/2023 5:49 PM EDT 02/23/2023 5:53 PM EDT us [facility] External Provider LAB BLO OD ORDERABLES Final Result [facility] [address] [place] [phone] * Lipase (02/23/2023 5:49 PM EDT) Lipase 47 8 - 78 U/L [facility] 02/23/2023 5:49 PM EDT 02/23/2023 5:53 PM EDT us Generic External Data Provider LAB BLOOD ORDERAB LES Final Result [facility] [address] [place] [address] [phone] * (ABNORMAL) Comprehensive Metabolic Panel (02/23/2023 5:49 PM EDT) Sodium 138 135 - 145 mmol/L [facility] Potassium 3.9 3.3 - 5.1 mmol/L [facility] Chloride 108 96 - 108 mmol/L [facility] Carbon Dioxide 20(L) 22 - 29 mmol/L [facility] Anion Gap 14 12 - 20 [facility] Urea Nitrogen (BUN) 13 9 - 16 mg/dL [facility] Creatinine, Serum 0.71 0.5 - 1.4 mg/dL [facility] Creatinine Clr Calc Pharmacy 108.9 [facility] Comment:Provided height and weight: 154.94 cm,68.3 kg.eGFR (calculated from the MDRD study equation) and eCrCl(calculated from the Cockcroft-Gault equation) are based ondifferent parameters and may not yield comparable results.If eCrCl result is absurd, please check patient'sheight/weight. Estimated Glomerular Filt Rate >60 [facility] Comment:NOTE: For -Am erican individuals, multiply the result by 1.210.Chronic Kidney Disease: Estimated GFR < 60 mL/min/1.64l9Oergtw Kidney Disease: Estimated GFR < 15 mL/min/1.73m2 Glucose 97 60 - 115 mg/dL [facility] Calcium 9.5 8.4 - 10.2 mg/dL [facility] Bilirubin, Total 0.2 0.0 - 1.0 mg/dL [facility] Aspartate Amino Transferase 20 5 - 31 U/L [facility] Alanine Aminotransferase 21 0 - 31 U/L [facility] Total Protein 8.4(H) 6.5 - 8.0 g/dL [facility] Albumin Level 4.5 3.5 - 5.0 g/dL [facility] Alkaline Phosphatase 149(H) 39 - 117 U/L [facility] 02/23/2023 5:49 PM EDT 02/23/2023 5:53 PM EDT [facility] External Provider LAB BLO OD ORDERABLES Final Result Performing Organization Address [facility]/ZIP Co de Phone Number [facility] [address] [place] [phone] * Partial Thromboplastin Time, Activated (APTT) (02/23/2023 5:49 PM EDT) Partial Thromboplastin Time 33.9 26.0 - 36.4 SEC [facility] 02/23/2023 5:49 PM EDT 02/23/2023 5:53 PM EDT [facility] Data Provider LAB BLOOD ORDERAB LES Final Result Performing Organization Address [facility] Co de Phone Number [facility] [address] [place] [phone] * Prothrombin Time-INR (02/23/2023 5:49 PM EDT) Prothrombin Time 12.1 11.1 - 13.3 SEC [facility] INTERNATIONAL NORM RATIO 1.0 0.9 - 1.1 [facility] Comment:INTERNATIONAL NORMAL IZED RATIO (INR) REFERENCE [...] 5:49 PM EDT 02/23/2023 5:53 PM EDT [facility] External Provider LAB BLO OD ORDERABLES Final Result Performing Organization Address [facility]/ZIP Co de Phone Number [facility] [address] [place] [address] [phone] * HCG, Qualitative, Urine (02/23/2023 5:49 PM EDT) Urine NEGATIVE NEGATIVE [facility] Comment:This test was develo ped to detect early . Falsenegative results may occur after the 5th - 7th week ofpregnancy when using this test method. If clinicallyindicated, consider a serum hCG. 02/23/2023 5:49 PM EDT 02/23/2023 5:53 PM EDT [facility] External Provider LAB URI NE ORDERABLES Final Result Performing Organization Address [facility] Co de Phone Number [facility] [address] [place] [phone] * (ABNORMAL) Urinalysis w/reflex microscopic (02/23/2023 5:49 PM EDT) Color Urine Yellow [facility] Appearance Urine Clear [facility] PH 5.5 5.0 - 9.0 [facility] Glucose Urine UA Negative Negative mg/dL [facility] Urine Blood Negative Negative [facility] Specific [place] - Urine >=1.030(H) 1.005 - 1.025 [facility] Urine Protein Negative Neg-Trace mg/dL [facility] Urine Ketones Negative Negative mg/dL [facility] Nitrite Urine Negative Negative [facility] Leukocyte Esterase Urine Negative Negative [facility] 02/23/2023 5:49 PM EDT 02/23/2023 5:53 PM EDT Narrative [facility] - 02/23/2023 5:57 PM EDT 1745Urine, Clean Catch [facility] External Provider LAB URI NE ORDERABLES Final Result [facility] [address] [place] [address] [phone] documented in this encounter Visit Diagnoses Not on filedocumented in this encounter Care Teams Payroll Representative Relationship Specialty Start Date End Date Rosey Rojas FNP [address] [place] [address] PCP - General Family Medicine 03/31/22 08/23/23 Miya Parker NP [address] [place] [address] PCP - General Family Medicine 08/24/23 10/19/23 documented as of this encounter
--- OUTSIDE RECORDS SUMMARY | 2025-04-10 19:56 | XMS_ITS | Encounter Summary ---
Author Organization [facility] Address [address] [place] [address] Phone Care Team Providers Care Candy Rolling Machine Operator Name Role Phone Elena Chavez MD Primary Care Provider [phone] Encounter Details Date Type Department Care Team (Late st Contact Info) Description 02/01/2017 Conversion Encounter [facility] - [address], [address] [place] [address] Elena Chavez MD [address] [place] [address] Social History Tobacco Use Types Packs/Day Years [...] on filedocumented in this encounter Care Teams Candy Rolling Machine Operator Relationship Specialty Start Date End Date Elena Chavez MD [address] [place] [address] PCP - General 08/16/16 02/02/21 documented as of this encounter
--- OUTSIDE RECORDS SUMMARY | 2025-04-10 19:56 | XMS_ITS | Clinical Summary ---
Author Organization [employer] Address [address] [facility] 7[address] [place] [address] Care Team Providers Care Tower Loader Operator Name Role Phone Unavailable Primary Care Provider Unavailabl e Allergies No known active allergies Medications pyridoxine (Vitamin B-6) 25 MG tablet one pill 3 times a day as needed for nausea 01/26/20 21 Active ulipristal (Amanda) 30 mg tablet Take one tablet by mouth up to five days after sex. Do not use more than once per menstrual cycle. If repeat dose is needed in same cycle, please contact prescriber. 1 tablet 11 04/10/20 25 Active Vit-Fe Fumarate-FA ( Vitamins) 28-0.8 MG tablet 025 Discontinued metroNIDAZOLE (Flagyl) 500 MG tabletIndicati ons:Subacute vaginitis Take 1 tablet (500 mg) by mouth 2 times daily for 7 days. 14 tablet 03/17/20 25 025 ibuprofen 800 MG tablet Take 1 tablet (800 mg) by mouth every 8 (eight) hours if needed for mild pain for up to 10 days. 15 tablet 03/25/20 25 025 amoxicillin (Amoxil) 500 MG capsule Take 1 capsule (500 mg) by mouth every 8 (eight) hours for 7 days. 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 Discussed risks of SD compared to risks of CS with increased risk of bleeding and infection with CS, decreased risk of injury, she is planning 3-4 children. Discussed small increase of acreta with each subsequent CS Supervision of other normal , antepartum 07/01/2022 04/10/2025 Overview (03/25/2025): OB-CMI score: 0 [07/01/2022] Rh pos GC/Chlam neg PAP 2020 NILM Tdap 10/10/22 Flu 07/07/22 COVID-19 vaccinated x 2 + booster Hgb 11 GTT 77 28 wk Repeat RPR neg GBS * PPBC: NO TL screening Would like genetic testing - she will need dating US first to determine GA and will need to make a plan at that point. Also wants Carrier Screening (Foresight Fundamental) Foresight and Prequel both negative screens Encounters Date Type Department Care Team Description 04/10/2025 11:00 AM EDT Procedure Visit [facility] MEDICINE [address] [place] [phone] Alida Velasquez CNM Other mechanical complication of intrauterine contraceptive device, initial encounter (Primary Dx); Cervical cancer screening; Abnormal uterine bleeding; Vaginal odor 04/10/2025 Travel 04/09/2025 Telephone [facility] MEDICINE [address] [place] [phone] Alida Velasquez CNM chart prep 03/27/2025 1:30 PM EDT Office Visit [facility] ADULT DENTAL [address] [place] [address] Emily Arzate DDS External resorption of root of tooth (Primary Dx) 03/27/2025 Travel 03/25/2025 1:00 PM EDT Office Visit [facility] ADULT DENTAL [address] [place] [address] Singer-Andrews , Emily, DDS External resorption of root of tooth (Primary Dx); Symptomatic periapical periodontitis 03/20/2025 Results Follow-Up [facility] CHC MED & PEDS [address] [place] [address] Cassy Arellano RN Bacterial Vaginosis Panel, Chlamydia/N. Gonorrhoeae RNA, TMA, Vaginal, POCT Urine 03/17/2025 6:40 PM EDT Office Visit [facility] WALK-IN CENTER [address] [place] [address] Oliverio Quinn MD Subacute vaginitis (Primary Dx); [...] (169 lb) 04/10/2025 11:19 AM EDT Height 153.7 cm (5' 0.5 ) 03/17/2025 6:45 PM EDT Body Mass Index 32.46 03/17/2025 6:45 PM EDT Plan of Treatment Upcoming Encounters Date Type Department Care Team (Late st Contact Info) Description 04/14/2025 4:00 PM EDT Office Visit [facility] CHC MED & PEDS [address] [place] [address] Oliverio Quinn MD [address] [place] [address] 04/17/2025 9:30 AM EDT Office Visit [facility] ADULT DENTAL [address] [place] [address] Emily Arzate, DDS [address] [place] [address] Health Maintenance Due Date Last Done Comments Dental Oral Exam 1999 Dental Prophylaxis 1999 Dental X-Ray: Full Mouth 1999 Pap Smear 2020 SDOH Screening 01/03/2024 01/02/2023 COVID-19 Vaccine ( season) 2025 08/22/2022, 11/27/2020, 10/30/2020 Influenza Vaccine (#1) 2025 , 06/17/2021, 07/17/2017, Additional history exists Dental X-Ray: Bitewings 03/26/2026 03/25/2025 Alcohol/Substance Use Screening 04/10/2026 04/10/2025 Depression Screening 04/10/2026 04/10/2025, 04/10/20 25 Disability Screening 04/10/2026 04/10/2025 Family Planning (PISQ) 04/10/2026 04/10/2025 Tobacco Screening 04/10/2026 04/10/2025 DTaP/Tdap/Td Vaccines (8 - Td or Tdap) [...] 04/10/2025 11:33 AM EDT Abnormal uterine bleeding [place] REMOVAL INTRAUTERINE DEVICE IUD Routine 04/10/2025 11:00 AM EDT Other mechanical complication of intrauterine contraceptive device, initial encounter CASE PRESENTATION, DETAILED AND EXTENSIVE TREATMENT PLANNING Routine 03/27/2025 1:30 PM EDT External resorption of root of tooth 13 ENDODONTIC THERAPY, PREMOLAR TOOTH Routine 03/27/2025 1:30 PM EDT External resorption of root of tooth CASE PRESENTATION, DETAILED AND EXTENSIVE TREATMENT PLANNING Routine 03/25/2025 1:00 PM EDT External resorption of root of tooth Symptomatic periapical periodontitis BITEWINGS - 2 RADIOGRAPHIC IMAGES Routine 03/25/2025 1:00 PM EDT External resorption of root of tooth Symptomatic periapical periodontitis INTRAORAL - PERIAPICAL FIRST RADIOGRAPHIC IMAGE Routine 03/25/2025 1:00 PM EDT External resorption of root of tooth Symptomatic periapical periodontitis PALLIATIVE (EMERGENCY) TREATMENT OF DENTAL PAIN - MINOR PROCEDURE Routine 03/25/2025 1:00 PM EDT External resorption of root of tooth Symptomatic periapical periodontitis POCT , URINE Routine 03/17/2025 7:32 PM EDT Subacute vaginitis Bloating symptom CHLAMYDIA/N. GONORRHOEAE RNA, TMA, UROGENITAL Routine 03/17/2025 7:00 PM EDT Subacute vaginitis BACTERIAL VAGINOSIS PANEL Routine 03/17/2025 7:00 PM EDT Subacute vaginitis ZZZ HISTORICAL HEPATITIS C ANTIBODY Routine 02/11/2021 11:15 AM EDT from Last 3 Months or Most Recently Relevant to Health Maintenance Results * POCT fern test, vaginal fluid manually resulted (04/10/2025 11:51 AM EDT) CHANDU Prep Negative Comment:neg whiff, neg clue, neg trich, neg yeast, neg wbc Vaginal Fluid Vaginal structure / Unknown 04/10/2025 11:51 AM EDT Alida Velasquez CNM POINT OF CARE TEST ENTER/ EDIT ORDERABLES Final Result * POCT , urine manually resulted (04/10/2025 11:33 AM EDT) Only the most recent of2 resultswithin the time period is included. Preg Test, Ur Negative Negative, Indeterminate, None Detected, Invalid, Specimen unsatisfactory for evaluation, Weakly Positive, 2+ QC Media Lot # [id number] Lot# Expiration Date [id number] Urine 04/10/2025 11:3 3 AM EDT Result [facility] Alida Velasquez CNM POINT OF CARE TEST ENTER/ EDIT ORDERABLES Final Result * WY REMOVAL INTRAUTERINE DEVICE IUD (04/10/2025 11:00 AM EDT) Narrative Alida Velasquez CNM - 04/10/2025 11:00 AM EDT Alida Velasquez CNM 04/10/2025 11:54 AM IUD Management Performed by: Alida Velasquez CNM Authorized by: Alida Velasquez CNM Procedure: IUD removal Consent obtained by patient, parent, or legal power of research attorney - including discussion of procedure risks [...] forceps after betadine prep. Will check ultrasound. Alida Velasquez CNM IN CLINIC/BEDSIDE ORDERAB LES Final Result * Bacterial Vaginosis Panel (03/17/2025 7:00 PM EDT) TRICHOMONAS VAGINALIS DETECTION BY PCR NOT DETECTED Not Detect [facility] BACTERIAL VAGINOSIS DETECTION BY PCR NEGATIVE Negative [facility] Comment:The BV organism targ ets of the Xpert Xpress MVP test can becommensal in women; Xpert Xpress MVP positive results forbacterial vaginosis should be considered in conjunction withother clinical and patient information to determine thedisease status. Organisms that are not detected by the XpertXpress MVP test have also been reported to be associatedwith BV and aerobic vaginitis.The Xpert Xpress MVP test performance has not been evaluatedin patients under the age of 14. FRANCISCA GROUP DETECTION BY PCR NOT DETECTED Not Detect [facility] Francisca glab krusei PCR NOT DETECTED Not Detect [facility] Swab Vaginal structure / Unknown 03/17/2025 7:00 PM EDT 03/18/2025 12:20 PM EDT us Oliverio Quinn MD LAB MICROBIOLOGY - GENERAL ORDERABLES Final Result [facility] [address] [place] [phone] * Chlamydia/N. Gonorrhoeae RNA, TMA, Vaginal (03/17/2025 7:00 PM EDT) CT PCR NOT DETECTED Not Detect. [facility] Comment:A not detected test result does not exclude the possibilityof infection because test results can be affected byimproper specimen collection, concurrent antibiotic therapy,or the number of organisms in the specimen which may bebelow the sensitivity of the test. As with many diagnostictests, results from the Xpert CT/NG assay should beinterpreted in conjunction with other laboratory andclinical data available to the clinician.Xpert CT/NG performance has not been evaluated in patientsless than 14 years of age. The assay should not be used forthe evaluationof suspected sexual abuse or for other medico-legalindications. Additional testing is recommended in anycircumstance when false positive or false negative resultscould lead to adverse medical, social or psychologicalconsequences. NG PCR NOT DETECTED Not Detect. [facility] Comment:A not detected test result does not exclude the possibilityof infection because test results can be affected byimproper specimen collection, concurrent antibiotic therapy,or the number of organisms in the specimen which may bebelow the sensitivity of the test. As with many diagnostictests, results from the Xpert CT/NG assay should beinterpreted in conjunction with other laboratory andclinical data available to the clinician.Xpert CT/NG performance has not been evaluated in patientsless than 14 years of age. The assay should not be used forthe evaluationof suspected sexual abuse or for other medico-legalindications. Additional testing is recommended in anycircumstance when false positive or false negative resultscould lead to adverse medical, social or psychologicalconsequences. Swab (Vaginal Swab) 03/17/2025 7:00 PM EDT 03/18/2025 12:20 PM EDT us Oliverio Quinn MD LAB MICROBIOLOGY - GENERAL ORDERABLES Final Result [facility] [address] [place] [phone] * Hepatitis C Antibody (02/11/2021 11:15 AM EDT) Hepatitis C Antibody Nonreactive Nonreactive [facility] Comment: Antibodies to HCV not detected; does not exclude early acute HCV infection. HIV AB/AG Nonreactive Nonreactive [facility] Comment: HIV-1 p24 Ag and/or [...] of detection of this assay. The [employer] Business Analyst HIV Ag/Ab Combo assay result and supplemental assay results should be interpreted in conjunction with the patient's clinical presentation, history and other laboratory results. If the results are inconsistent with clinical evidence, additional testing is suggested to confirm the result. Hepatitis B Surface Antigen Negative Negative [facility] 02/11/2021 11:1 5 AM EDT us Pennie Taveras HISTORICAL/NON ORDERABLE LABS Fi nal Result [facility] [address] from Last 3 Months or Most Recently Relevant to Health Maintenance [place] FULL (MEDICAID)
--- OUTSIDE RECORDS SUMMARY | 2025-04-10 19:56 | XMS_ITS | Encounter Summary ---
Author Organization [employer] Address [address] [place] [address] [address]t [place] [address] Care Team Providers Care Catalogue Illustrator Name Role Phone Rosey RojasP Primary Care Provider [phone] Miya Parker NP Primary Care Provider [phone] Reason for Visit * Reason Onset Date Comments TP Appt required 01/18/2023 Encounter Details Date Type Department Care Team ([facility] st Contact Info) Description 01/18/2023 Telephone [facility] MEDICINE [address] [place] [address] Rosey Rojas FNP [address] [place] [address] TP Appt required Social History Tobacco Use [...] PCP Dr. Alberto. Please contact pt at [phone] documented in this encounter Plan of Treatment Upcoming Encounters Date Type Department Care Team (Late st Contact Info) Description 04/14/2025 4:00 PM EDT Office Visit [facility] CHC MED & PEDS [address] [place], [place] [phone] Oliverio Quinn MD [address] [place] [address] 04/17/2025 9:30 AM EDT Office Visit [facility] ADULT DENTAL [address] [place] [address] Singer-Emily Andrews, DDS [address] [place] [address] documented as of this encounter Visit Diagnoses Not on filedocumented in this encounter Care Teams Catalogue Illustrator Relationship Specialty Start Date End Date Rosey Rojas FNP [address] [place] [address] PCP - General Family Medicine 03/31/22 08/23/23 Miya Parker NP [address] [place] [address] PCP - General Family Medicine 08/24/23 10/19/23 documented as of this encounter
--- OUTSIDE RECORDS SUMMARY | 2025-04-10 19:56 | XMS_ITS | Encounter Summary ---
Author Organization [employer] Address [address] [facility] 7t [place] [address] Care Team Providers Care Tie Presser Name Role Phone Unavailable Primary Care Provider Unavailabl e Reason for Visit * Reason Onset Date Comments chart prep 04/09/2025 Encounter Details Date Type Department Care Team ([facility] st Contact Info) Description 04/09/2025 Telephone [facility] MEDICINE [address] [place], [place] [phone] Alida Velasquez, MAYRA [address] [place] [address] chart prep Social History Tobacco Use Types Packs/Day Years [...] encounter Miscellaneous Notes * Telephone Encounter - Aisha Grande [place] - 04/09/2025 2:55 PM EDT Chart Prep Labs: not applicable Images: not applicable Screenings: Not Applicable Vaccines due: Covid Due and Flu Due Referrals: Not Applicable Overdue care gaps: Sbirt, SDOH, PHQ9, GAD7, Disability , Oral Health, and LMP documented in this encounter Plan of Treatment Upcoming Encounters Date Type Department Care Team (Late st Contact Info) Description 04/14/2025 4:00 PM EDT Office Visit [facility] CHC MED & PEDS [address] [place] [address] Oliverio Quinn MD [address] [place] [address] 04/17/2025 9:30 AM EDT Office Visit [facility] ADULT DENTAL [address] [place] [address] Singer-AndrewsEmily harris, DDS [address] [place] [address] documented as of this encounter Visit Diagnoses Not on filedocumented in this encounter
== END 2025-04-10 18:51 | disposition home or self-care (01) ==
LOC: HO.LNP 18:50
PROVIDERS: Visit Provider Advanced Practice Midwife
DX: Z12.4 Encounter for screening for malignant neoplasm of cervix (principal)
CPT/HCPCS: 88175

== ENCOUNTER 2025-04-17 17:25 | Outpatient (REF) | payer MEDICAID, OTHER, SELFPAY ==
--- OUTSIDE RECORDS SUMMARY | 2025-04-14 16:00 | XMS_ITS | Encounter Summary ---
Author Organization [employer] Address [address] [place] [address] 7 [place] [address] Care Team Providers Care Carcass Washer Name Role Phone Oliverio Quinn MD Primary Care Provider [phone] Reason for Referral * Imaging (Routine) - Authorized Specialty Diagnoses / Procedures Referred By Contac t Referred To Contact Radiology Diagnoses Coital headache Procedures CT Head w/o Contrast Oliverio Quinn MD [address] [place] [address] Phone: tel: fax: [address] Phone: tel: fax: Referral ID Status Reason Start Date Expiration Date V isits Requested Visits Authorized [id number] Authorized 04/14/2025 04/14/2026 1 1 Encounter Details Date Type Department Care Team (Late st Contact Info) Description 04/14/2025 4:00 PM EDT Office Visit [facility] CHC MED & PEDS [address] [place], [place] [phone] Oliverio Quinn MD [address] [place], [place] [phone] Subacute vaginitis (Primary Dx); Encounter for immunization; Acute cough; Dietary counseling; Exercise counseling; Class 1 obesity due to excess calories without serious comorbidity with body mass index (BMI) of 33.0 to 33.9 in adult; Coital headache Social History Tobacco Use Types Packs/Day Years [...] Sign Reading Time Taken Comments Blood Pressure 118/68 04/14/2025 4:10 PM EDT Pulse 93 04/14/2025 4:10 PM EDT Temperature - - Respiratory Rate - - Oxygen Saturation 98% 04/14/2025 4:10 PM EDT Inhaled Oxygen Concentration - - Weight 78.9 kg (174 lb) 04/14/2025 4:10 PM EDT Height 153.7 cm (5' 0.5 ) 04/14/2025 4:10 PM EDT Body Mass Index 33.42 04/14/2025 4:10 PM EDT documented in this encounter Progress Notes * Oliverio Quinn MD - 04/14/2025 4:00 PM EDT SUBJECTIVE Jennifer Yared Mohsen is a 25 y.o. female who presents for No chief complaint on file.. HPI 1) evaluated in the office on March 17, 2025 with the impression of vaginitis. Started on metronidazole with the impression of bacterial vaginosis which was not confirmed by a vaginal swab. The medication was discontinued 2 days after it was started. Patient was evaluated in the meantime by her machine puller and laster. She was supposed to have a intrauterine device in place which was not found. She is scheduled to get an ultrasound of the pelvis. She is still complaining of the presence of the vaginaldischarge which has not worsened. 2) history of bloating. Mrs. Jennifer Connolly has stopped drinking soda and had followed the low FODMAP diet with significant improvement of her symptoms. Denies any fever or any other constitutional symptoms. 3) headache that started during sexual intercourse. Described as the worst headache she has ever had. The headache resolved by itself after cessation of intimacy. No further episodes reported. 4) history of a cough that started about 2 to 3 weeks ago. Multiple family members with similar symptoms. No associated fevers. Problem List[1] Allergies[2] Medications Ordered Prior to Encounter[3] Review of Systems Constitutional: Negative for activity change, appetite change, chills and diaphoresis. HENT: Negative for dental problem, drooling, ear discharge, ear pain and hearing loss. Eyes: Negative for pain, discharge and itching. Respiratory: Negative for cough, choking and chest tightness. Cardiovascular: Negative for chest pain and leg swelling. Gastrointestinal: Negative for blood in stool and diarrhea. Genitourinary: Positive for vaginal discharge. Negative for difficulty urinating, dyspareunia, dysuria, enuresis, flank pain, frequency and genital sores. Musculoskeletal: Negative for arthralgias, gait problem and joint swelling. Skin: Negative for pallor. Neurological: Negative for dizziness, seizures, speech difficulty, light- headedness and numbness. Psychiatric/Behavioral: Negative for behavioral problems, confusion and decreased concentration. OBJECTIVE Vitals: 04/14/25 1610 BP: 118/68 BP Location: Left arm Patient Position: Sitting BP Cuff Size: Adult Pulse: 93 SpO2: 98% Weight: 174 lb (78.9 kg) Height: 5' 0.5 (1.537 m) Physical Exam Constitutional: General: She is not in acute distress. Appearance: Normal appearance. She is obese. She is not ill-appearing, toxic- appearing or diaphoretic. Cardiovascular: Rate and Rhythm: Normal rate. Pulmonary: Effort: Pulmonary effort is normal. Neurological: General: No focal deficit present. Mental Status: She is alert. Psychiatric: Mood and Affect: Mood normal. Assessment/Plan Assessment/Plan Diagnoses and all orders for this visit: Subacute vaginitis Comments: Mild improvement Gynecology evaluation as scheduled. Encounter for immunization - FLU VACCINE TRIVALENT [id number] (Fluarix) 19 yrs + Acute cough Comments: Supportive care Multiple family member with similar symptoms. Orders: - XR Chest 2 Views; Future Dietary counseling Exercise counseling Class 1 obesity due to excess calories without serious comorbidity with body mass index (BMI) of 33.0 to 33.9 in adult Dietary Recommendations: Fruits, vegetables, whole grains, protein foods, and fat-free or low-fat dairy products are healthychoices. Eat different types of protein foods in your diet. This can include seafood, lean meats, poultry, beans, peas, lentils, nuts, seeds, soy products, and eggs. Limit foods and beverages higher in added sugars, saturated fat, and sodium. Exercise Recommendations: At least 150 minutes of moderate-intensity physical activity per week, or an equivalent combinationof moderate- and vigorous-intensity activity Coital headache - CT Head w/o Contrast; Future Patient will be contacted with the results of the CT brain Tylenol OTC as needed for now. 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 Do not use more than once per menstrual cycle. If repeat dose is needed in same cycle, please contact prescriber. 1 tablet 11 [DISCONTINUED] Vit-Fe Fumarate-FA ( Vitamins) 28-0.8 MG tablet No current facility-administered medications on file prior to visit. documented in this encounter Miscellaneous Notes * Patient Education Note - Oliverio Quinn MD - 04/14/2025 8:33 PM EDT Images from the original note were not included. Patient Education Table of Contents Obesity, Adult To view videos and all your education online visit, [email or web address] or scan this QR code with your smartphone. Access to this content will in one year. Obesity, Adult Obesity is having too much body fat. Being obese means that your weight is more than what is healthy for you. BMI (body mass index) is a number that explains how much body fat you have. If you have a BMI of 30or more, you are obese. Obesity can cause serious health problems, such as: Stroke. Coronary artery disease (CAD). Type 2 diabetes. Some types of cancer. High blood pressure (hypertension). High cholesterol. Gallbladder stones. Obesity can also contribute to: Osteoarthritis. Sleep apnea. Infertility problems. What are the causes? Eating meals each day that are high in calories, sugar, and fat. Drinking a lot of drinks that have sugar in them. Being born with genes that may make you more likely to become obese. Having a medical condition that causes obesity. Taking certain medicines. Sitting a lot (having a sedentary lifestyle). Not getting enough sleep. What increases the risk? Having a family history of obesity. Living in an area with limited access to: ? Price, recreation centers, or sidewalks. ? Healthy food choices, such as grocery stores and [employer] What are the signs or symptoms? The main sign is having too much body fat. How is this treated? Treatment for this condition often includes changing your lifestyle. Treatment may include: Changing your diet. This may include making a healthy meal plan. Exercise. This may include activity that causes your heart to beat faster (aerobic exercise) and strength training. Work with your doctor to design a program that works for you. Medicine to help you lose weight. This may be used if you are not able to lose one pound a week after 6 weeks of healthy eating and more exercise. Treating conditions that cause the obesity. Surgery. Options may include gastric banding and gastric bypass. This may be done if: ? Other treatments have not helped to improve your condition. ? You have a BMI of 40 or higher. ? You have life-threatening health problems related to obesity. Follow these instructions at home: Eating and drinking Follow advice from your doctor about what to eat and drink. Your doctor may tell you to: ? Limit fast food, sweets, and processed snack foods. ? Choose low-fat options. For example, choose low-fat milk instead of whole milk. ? Eat five or more servings of fruits or vegetables each day. ? Eat at home more often. This gives you more control over what you eat. ? Choose healthy foods when you eat out. ? Learn to read food labels. This will help you learn how much food is in one serving. ? Keep low-fat snacks available. ? Avoid drinks that have a lot of sugar in them. These include soda, fruit juice, iced tea with sugar, and flavored milk. Drink enough water to keep your pee (urine) pale yellow. Do not go on fad diets. Physical activity Exercise often, as told by your doctor. Most adults should get up to 150 minutes of moderate-intensity exercise every week.Ask your doctor: ? What types of exercise are safe for you. ? How often you should exercise. Warm up and stretch before being active. Do slow stretching after being active (cool down). Rest between times of being active. Lifestyle Work with your doctor and a food expert (dietitian) to set a weight-loss goal that is best for you. Limit your screen time. Find ways to reward yourself that do not involve food. Do not drink alcohol if: ? Your doctor tells you not to drink. ? You are , may be , or are planning to become . If you drink alcohol: ? Limit how much you have to: ? 0?1 drink a day for women. ? 0?2 drinks a day for men. ? Know how much alcohol is in your drink. In the [place] one drink equals one 12 oz bottle of beer (355 mL), one 5 oz glass of wine (148 mL), or one 1? oz glass of hard liquor (44 mL). General instructions Keep a weight-loss journal. This can help you keep track of: ? The food that you eat. ? How much exercise you get. Take fffi-uzx-hnlnarc and prescription medicines only as told by your doctor. Take vitamins and supplements only as told by your doctor. Think about joining a support group. Pay attention to your mental health as obesity can lead to depression or self esteem issues. Keep all follow-up visits. Contact a doctor if: You cannot meet your weight-loss goal after you have changed your diet and lifestyle for 6 weeks. You are having trouble breathing. Summary Obesity is having too much body fat. Being obese means that your weight is more than what is healthy for you. Work with your doctor to set a weight-loss goal. Get regular exercise as told by your doctor. This information is not intended to replace advice given to you by your health care provider. Make sure you discuss any questions you have with your health care provider. Document Released: 2012-09-03 Document Updated: 2022-01-18 Document Reviewed: 2022-01-18 Elsevier Patient Education ? 2024 [employer] documented in this encounter Plan of Treatment Upcoming Encounters Date Type Department Care Team (Late st Contact Info) Description 05/05/2025 9:30 AM EST Office Visit [facility] ADULT DENTAL [address] [place] [address] Emily Arzate, DDS [address] [place] [address] 05/12/2025 1:30 PM EST Office Visit [facility] ADULT DENTAL [address] [place] [address] Emily Arzate, DDS [address] [place] [address] 05/26/2025 3:30 PM EST Office Visit [facility] CHC MED & PEDS [address] [place], [place] [phone] Oliverio Quinn MD [address] [place] [address] Scheduled Orders Name Type Priority Associated Diagnoses Orde r Schedule XR Chest 2 Views Imaging Routine Acute cough Expected: 04/14/2025, Expires: 04/14/2026 CT Head w/o Contrast Imaging Routine Coital headache Expected: 04/14/2025, Expires: 04/14/2026 documented as of this encounter Visit Diagnoses Diagnosis Subacute vaginitis- Primary Encounter for immunization Acute cough Dietary counseling Dietary surveillance and counseling Exercise counseling Class 1 obesity due to excess calories without serious comorbidity with body mass index (BMI) of 33.0 to 33.9 in adult Coital headache documented in this encounter Care Teams Carcass Washer Relationship Specialty Start Date End Date Oliverio Quinn MD [address] [place] [id number] PCP - General Internal Medicine 04/14/25 documented as of this encounter
--- OUTSIDE RECORDS SUMMARY | 2025-04-17 09:30 | XMS_ITS | Encounter Summary ---
Author Organization [employer] Address [address] [facility] 7t [place] [address] Care Team Providers Care Straight Pin Making Machine Operator Name Role Phone Oliverio Quinn MD Primary Care Provider [phone] Reason for Visit * Reason Comments Post and core and crown prep on tooth #1 3 Encounter Details Date Type Department Care Team ([facility] st Contact Info) Description 04/17/2025 9:30 AM EDT Office Visit [facility] ADULT DENTAL [address] [place] [address] Emily Arzate DDS [address] [place] [address] Full coverage crown needed for root canal-treated tooth (Primary Dx) Social History Tobacco Use Types Packs/Day Years [...] t he electric, gas, oil or water [employer] threatened to shut off services in your [...] Sign Reading Time Taken Comments Blood Pressure 124/78 04/17/2025 9:55 AM EDT Pulse - - Temperature - - Respiratory Rate - - Oxygen Saturation - - Inhaled Oxygen Concentration - - Weight - - Height - - Body Mass Index - - documented in this encounter Progress Notes * Emily Arzate DDS - 04/17/2025 9:30 AM EDT Patient ID: Jennifer Connolly is a 25 y.o. female. Time Out: Timeout Date: 04/17/25, Timeout Time: 0955 (Time out for post and core and crown prep on tooth #13) Location: [facility] Tooth: #13 Procedure: Y-O Ranch and Post & Core Verified the above with patient, housing assistant property manager, and provider. Confirmed via patient's chart, intraorally and by radiographs. Animal Services Officer: not applicable Chief Complaint Patient presents with Post and core and crown prep on tooth #13 Medical Hx: Vitals: Blood pressure 124/78, last menstrual period 04/02/2025. Medications, Med Hx reviewed with patient and updated in chart. Consent Obtained: The risks, benefits, indications, potential complications, and alternatives were explained to the patient and informed consent was obtained with good understanding. Treatment Provided: Dental procedures in this visit [id number] - PREFABRICATED POST AND CORE IN ADDITION TO CROWN 13 (Completed) Service provider: Emily Arzate DDS Billing provider: Emily Arzate DDS D2700.1 - CROWN PREP (Completed) Service provider: Emily Arzate DDS Billing provider: Emily Arzate DDS [id number] - INTRAORAL - PERIAPICAL FIRST RADIOGRAPHIC IMAGE (Completed) Service provider: Emily Arzate DDS Billing provider: Emily Arzate DDS [id number] - CASE PRESENTATION, DETAILED AND EXTENSIVE TREATMENT PLANNING (Completed) Service provider: Emily Arzate DDS Billing provider: Emily Arzate DDS Topical: 20% Benzocaine Anesthesia: 2% Lidocaine (Xylocaine) w/ 1:100,000 epinephrine Number of Cartridges: 1 Injection Type: Buccal infiltration, Palatal infiltration, Middle superior alveolar nerve block, and Greater palatine nerve block Confirmed profound anesthesia. Isolation: cotton rolls and high speed suction Post and Core: Temporary mandaen removed. Canal length: 16 mm Ethan-percha removed using Crum Paddy Post space made: 11 mm Peeso reamer used size: 1-red Post type used: Flexipost Post size used: 1-red PA taken to confirm post size and length. Irrigation: Chlorhexidine Post space dried using paper points. Etch: 37% Phosphoric Acid Etch Duvall: I-Duvall Post cemented with: Relyx Unicem Core: [employer] Home [employer] Flowable Composite PA taken to confirm fit. Occlusion checked with articulating paper and adjustments made as needed. Core smoothed and polished. Y-O Ranch preparation: Prepared tooth for: Ceramic crown Gingival Retraction: Traxodent and Retraction cap Final Impression taken with: Reid Colón Heavy [employer] Light Body Bite Registration taken with: BluPrint VPS and Triple tray Provisional fabricated with: Paradigm Temp Material and cemented with: TempBond Shade: A3 Lab used: 04/30/2025 Lab Due Date: [facility] POI given to patient with instructions for homecare, to avoid sticky or crunchy foods, and to call if temp crown becomes dislodged. All questions answered. Patient tolerated procedure well, and was discharged alert, oriented, and in stable condition. NV: Y-O Ranch market research analyst: Annalise Briggs Dentist: Emily Arztae DDS documented in this encounter Plan of Treatment Upcoming Encounters Date Type Department Care Team (Late st Contact Info) Description 05/05/2025 9:30 AM EST Office Visit [facility] ADULT DENTAL [address] [place] [address] Singer-Kb Andrewsfemia, DDS [address] [place] [address] 05/12/2025 1:30 PM EST Office Visit [facility] ADULT DENTAL [address] [place] [address] Singer-Andrews, Emily, DDS [address] [place] [address] 05/26/2025 3:30 PM EST Office Visit [facility] CHC MED & PEDS [address] [place], [place] [phone] Oliverio Quinn MD [address] [place], [place] [phone] Scheduled Orders Name Type Priority Associated Diagnoses Orde r Schedule DENTAL LAB FIXED Dental Routine Ordered: 04/17/2025 documented as of this encounter Procedures Procedure Name Priority Date/Time Associated Diagnosis Comments CROWN PREP Routine 04/17/2025 9:30 AM EDT Full coverage crown needed for root canal-treated tooth 13 PREFABRICATED POST AND CORE IN ADDITION TO CROWN Routine 04/17/2025 9:30 AM EDT Full coverage crown needed for root canal-treated tooth INTRAORAL - PERIAPICAL FIRST RADIOGRAPHIC IMAGE Routine 04/17/2025 9:30 AM EDT Full coverage crown needed for root canal-treated tooth CASE PRESENTATION, DETAILED AND EXTENSIVE TREATMENT PLANNING Routine 04/17/2025 9:30 AM EDT Full coverage crown needed for root canal-treated tooth documented in this encounter Visit Diagnoses Diagnosis Full coverage crown needed for root canal-treated tooth- Primary documented in this encounter Care Teams Straight Pin Making Machine Operator Relationship Specialty Start Date End Date Oliverio Quinn MD [address] [place] [address] PCP - General Internal Medicine 04/14/25 documented as of this encounter
--- OUTSIDE RECORDS SUMMARY | 2025-04-17 19:39 | XMS_ITS | Encounter Summary ---
Author Organization [employer] Address [address] [facility] 7t [place] [address] Care Team Providers Care Legal Technician Name Role Phone Rosey RojasP Primary Care Provider [phone] Miya Parker NP Primary Care Provider [phone] Oliverio Quinn MD Primary Care Provider [phone] Encounter Details Date Type Department Care Team (Late st Contact Info) Description 05/31/2022 Orders Only [facility] MEDICINE [address] [place] [address] Cornelia Olivarez, ALYSIA [address] [place] [address] Social History Tobacco Use Types Packs/Day Years [...] Description 05/05/2025 9:30 AM EST Office Visit [facility] ADULT DENTAL [address] [place] [address] Emily Arzate, DDS [address] [place] [address] 05/12/2025 1:30 PM EST Office Visit [facility] ADULT DENTAL [address] [place] [address] Singer-AndrewsKb harrisfemia, DDS [address] [place] [address] 05/26/2025 3:30 PM EST Office Visit [facility] CHC MED & PEDS [address] [place] [address] Oliverio Quinn MD [address] [place], [place] [phone] documented as of this encounter Procedures Procedure [...] (02/23/2023 7:37 PM EDT) OBS1 POSITIVE NEGATIVE [facility] 02/23/2023 7:37 PM EDT 02/23/2023 7:40 PM EDT us [facility] External Provider LAB BLO OD ORDERABLES Final Result Performing Organization Address [facility] Co de Phone Number [facility] [address] [place] [address] [phone] * hCG, Total, Quantitative (02/23/2023 5:49 PM EDT) HCG Quantitative <2 mIU/mL [facility] Comment:Weeks post LMP Appro ximate hCG(Last Menstrual Period) Range (mIU/ml)3 - 4 weeks 9 - 1304 - 5 weeks 75 - 2,6005 - 6 weeks 850 - 20,8006 - 7 weeks 4000 - 100,2007 - 12 weeks 11,500 - 289,93064 - 16 weeks 18,300 - 137,55777 - 29 weeks (2nd trimester) 1,400 - 53,96702 - 41 weeks (3rd trimester) 940 - 60,000The Salgado B- hCG assay is used for the early detection ofpregnancy; it cannot be used to diagnose any conditionunrelated to . If a B-hCG level is not supportedby the clinical evidence, results should be confirmed by analternative method (qualitative urine hCG, for example). 02/23/2023 5:49 PM EDT 02/23/2023 5:53 PM EDT [facility] External Provider LAB BLO OD ORDERABLES Final Result Performing Organization Address [facility] Co de Phone Number [facility] [address] [place] [address] [phone] * (ABNORMAL) CBC auto differential (02/23/2023 5:49 PM EDT) White Blood Count 9.3 4.8 - 10.8 X10*3/uL [facility] Red Blood Count 4.69 4.20 - 5.50 X10*6/uL [facility] Hemoglobin 12.2 12.0 - 16.0 g/dl [facility] Hematocrit 37.4 37.0 - 47.0 % [facility] Mean Corpuscular Volume 79.7(L) 80.0 - 98.0 fL [facility] Mean Corpuscular Hemoglobin 26.0(L) 27.0 - 33.0 pg [facility] Mean Corpuscular HGB Conc 32.6 31.0 - 35.0 g/dl [facility] Red Cell Distribution Width 14.7 11.0 - 16.0 % [facility] Platelet Count 350 160 - 400 X10*3/uL [facility] Mean Platelet Volume 10.1 9.4 - 12.3 fL [facility] Neutrophils Percent Auto 53.2 45 - 73 % [facility] Imm Gran Pct Auto 0.3 0.0 - 0.4 % [facility] Lymphocytes Percent Auto 35.7 20 - 40 % [facility] Monocytes Percent Auto 7.2 2 - 11 % [facility] Eosinophils Percent Auto 2.8 0 - 4 % [facility] Basophils Percent Auto 0.8 0 - 2 % [facility] NRBC Pct Auto 0.0 0.0 - 0.2 /100WBC [facility] Neutrophils Absolute Auto 4.9 2.0 - 8.3 x10*3/uL [facility] Imm Gran Abs Auto 0.03 0.00 - 0.03 X10*3/uL [facility] Lymphocytes Absolute Auto 3.3 1.2 - 4.9 X10*3/uL [facility] Monocytes Absolute Auto 0.7 0.1 - 1.2 X10*3/uL [facility] Eosinophils Absolute Auto 0.3 0.0 - 0.4 X10*3/uL [facility] Basophils Absolute Auto 0.1 0.0 - 0.2 X10*3/uL [facility] NRBC Abs Auto 0.000 0.0 - 0.012 X10*3/uL [facility] 02/23/2023 5:49 PM EDT 02/23/2023 5:53 PM EDT us [facility] External Provider LAB BLO OD ORDERABLES Final Result [facility] [address] [place] [address] [phone] * Lipase (02/23/2023 5:49 PM EDT) Lipase 47 8 - 78 U/L [facility] 02/23/2023 5:49 PM EDT 02/23/2023 5:53 PM EDT us Generic External Data Provider LAB BLOOD ORDERAB LES Final Result [facility] [address] [place] [address] [phone] * (ABNORMAL) Comprehensive Metabolic Panel (02/23/2023 5:49 PM EDT) Pathologist [facility] Sodium 138 135 - 145 mmol/L [facility] Potassium 3.9 3.3 - 5.1 mmol/L [facility] Chloride 108 96 - 108 mmol/L [facility] Carbon Dioxide 20(L) 22 - 29 mmol/L [facility] Anion Gap 14 12 - 20 [facility] Urea Nitrogen (BUN) 13 9 - 16 mg/dL [facility] Creatinine, Serum 0.71 0.5 - 1.4 mg/dL [facility] Creatinine Clr Calc Pharmacy 108.9 [facility] Comment:Provided height and weight: 154.94 cm,68.3 kg.eGFR (calculated from the MDRD study equation) and eCrCl(calculated from the Cockcroft-Gault equation) are based ondifferent parameters and may not yield comparable results.If eCrCl result is absurd, please check patient'sheight/weight. Estimated Glomerular Filt Rate >60 [facility] Comment:NOTE: For -Am erican individuals, multiply the result by 1.210.Chronic Kidney Disease: Estimated GFR < 60 mL/min/1.14z9Oazpds Kidney Disease: Estimated GFR < 15 mL/min/1.73m2 Glucose 97 60 - 115 mg/dL [facility] Calcium 9.5 8.4 - 10.2 mg/dL [facility] Bilirubin, Total 0.2 0.0 - 1.0 mg/dL [facility] Aspartate Amino Transferase 20 5 - 31 U/L [facility] Alanine Aminotransferase 21 0 - 31 U/L [facility] Total Protein 8.4(H) 6.5 - 8.0 g/dL [facility] Albumin Level 4.5 3.5 - 5.0 g/dL [facility] Alkaline Phosphatase 149(H) 39 - 117 U/L [facility] 02/23/2023 5:49 PM EDT 02/23/2023 5:53 PM EDT [facility] External Provider LAB BLO OD ORDERABLES Final Result Performing Organization Address [facility] Co de Phone Number [facility] [address] [place] [phone] * Partial Thromboplastin Time, Activated (APTT) (02/23/2023 5:49 PM EDT) Partial Thromboplastin Time 33.9 26.0 - 36.4 SEC [facility] 02/23/2023 5:49 PM EDT 02/23/2023 5:53 PM EDT Generic External Data Provider LAB BLOOD ORDERAB LES Final Result Performing Organization Address [facility] Co de Phone Number [facility] [address] [place] [phone] * Prothrombin Time-INR (02/23/2023 5:49 PM EDT) Prothrombin Time 12.1 11.1 - 13.3 SEC [facility] INTERNATIONAL NORM RATIO 1.0 0.9 - 1.1 [facility] Comment:INTERNATIONAL NORMAL IZED RATIO (INR) [...] 5:49 PM EDT 02/23/2023 5:53 PM EDT [facility] External Provider LAB BLO OD ORDERABLES Final Result Performing Organization Address [facility] Co de Phone Number [facility] [address] [place] [address] [phone] * HCG, Qualitative, Urine (02/23/2023 5:49 PM EDT) Urine NEGATIVE NEGATIVE [facility] Comment:This test was develo ped to detect early . Falsenegative results may occur after the 5th - 7th week ofpregnancy when using this test method. If clinicallyindicated, consider a serum hCG. 02/23/2023 5:49 PM EDT 02/23/2023 5:53 PM EDT [facility] External Provider LAB URI NE ORDERABLES Final Result Performing Organization Address [facility] de Phone Number [facility] [address] [place] [phone] * (ABNORMAL) Urinalysis w/reflex microscopic (02/23/2023 5:49 PM EDT) Color Urine Yellow [facility] Appearance Urine Clear [facility] PH 5.5 5.0 - 9.0 [facility] Glucose Urine UA Negative Negative mg/dL [facility] Urine Blood Negative Negative [facility] Specific [place] - Urine >=1.030(H) 1.005 - 1.025 [facility] Urine Protein Negative Neg-Trace mg/dL [facility] Urine Ketones Negative Negative mg/dL [facility] Nitrite Urine Negative Negative [facility] Leukocyte Esterase Urine Negative Negative [facility] 02/23/2023 5:49 PM EDT 02/23/2023 5:53 PM EDT Narrative [facility] - 02/23/2023 5:57 PM EDT 1745Urine, Clean Catch us [facility] External Provider LAB URI NE ORDERABLES Final Result [facility] [address] [place] [address] [phone] documented in this encounter Visit Diagnoses Not on filedocumented in this encounter Care Teams Legal Technician Relationship Specialty Start Date End Date Rosey Rojas FNP [address] [place] [address] PCP - General Family Medicine 03/31/22 08/23/23 Miya Parker NP [address] [place] [address] PCP - General Family Medicine 08/24/23 10/19/23 Oliverio Quinn MD [address] [place] [phone] PCP - General Internal Medicine 04/14/25 documented as of this encounter
--- OUTSIDE RECORDS SUMMARY | 2025-04-17 19:39 | XMS_ITS | Encounter Summary ---
Author Organization [employer] Address 75 [facility] 7t [place] [address] Care Team Providers Care Ground Water Pump Installer Name Role Phone Oliverio Quinn MD Primary Care Provider [phone] Encounter Details Date Type Department Care Team (Latest Contact Info) Description 04/14/2025 Travel Social History Tobacco Use Types Packs/Day [...] Description 05/05/2025 9:30 AM EST Office Visit [facility] ADULT DENTAL [address] [place] [address] Singer-Andrews, Emily, DDS [address] [place] [address] 05/12/2025 1:30 PM EST Office Visit [facility] ADULT DENTAL [address] [place] [address] Singer-Andrews, Emily, DDS [address] [place] [address] 05/26/2025 3:30 PM EST Office Visit [facility] CH[facility] MED & PEDS [address] [place], [place] [phone] Oliverio Quinn MD [address] [place] [address] documented as of this encounter Visit Diagnoses Not on filedocumented in this encounter Care Teams Ground Water Pump Installer Relationship Specialty Start Date End Date Oliverio Quinn MD [address] [place] [address] PCP - General Internal Medicine 04/14/25 documented as of this encounter
--- OUTSIDE RECORDS SUMMARY | 2025-04-17 19:39 | XMS_ITS | Encounter Summary ---
Author Organization [employer] Address 75 [facility] 7t [place] [address] Care Team Providers Care Box Spring Frame Builder Name Role Phone Oliverio Quinn MD Primary Care Provider [phone] Encounter Details Date Type Department Care Team ([facility] st Contact Info) Description 04/15/2025 Orders Only [facility] MEDICINE [address] [place], [place] [phone] Alida Velasquez, MAGDY [address] [place] [address] Vaginal odor (Primary Dx) Social History Tobacco Use Types [...] 9:30 AM EST Office Visit [facility] ADULT DENTAL [address] [place] [address] Singer-Andrews, Emily, DDS [address] [place] [address] 05/12/2025 1:30 PM EST Office Visit [facility] ADULT DENTAL [address] [place] [address] Singer-Andrews, Emily, DDS [address] [place] [address] 05/26/2025 3:30 PM EST Office Visit [facility] CHC MED & PEDS [address] [place] [address] Oliverio Quinn MD [address] [place] [address] Scheduled Orders Name Type Priority Associated Diagnoses Orde r Schedule Bacterial Vaginosis, Yeast and Trich Microbiology Routine Vaginal odor Expected: 04/15/2025 (Approximate), Expires: 04/15/2026 documented as of this encounter Visit Diagnoses Diagnosis Vaginal odor- Primary Unspecified symptom associated with female genital organs documented in this encounter Care Teams Box Spring Frame Builder Relationship Specialty Start Date End Date Oliverio Quinn MD [address] [place] [address] PCP - General Internal Medicine 04/14/25 documented as of this encounter
--- OUTSIDE RECORDS SUMMARY | 2025-04-17 19:39 | XMS_ITS | Clinical Summary ---
Author Organization [employer] Address 75 [facility] 7t [place] [address] Care Team Providers Care Operater Name Role Phone Oliverio Quinn MD Primary Care Provider [phone] Allergies No known active allergies Medications pyridoxine [...] Encounters Date Type Department Care Team Description 04/17/2025 9:30 AM EDT Office Visit [facility] ADULT DENTAL [address] [place], [place] [phone] Singer-Andrews , Emily, DDS Full coverage crown needed for root canal-treated tooth (Primary Dx) 04/15/2025 Orders Only [facility] MEDICINE [address] [place], [place] [phone] Cale Perez CNM Vaginal odor (Primary Dx) 04/15/2025 Results Follow-Up [facility] MEDICINE [address] [place], [place] [phone] Cale Perez CNM Pap Smear, POCT , urine manually resulted 04/14/2025 4:00 PM EDT Office Visit [facility] CHC MED & PEDS [address] [place] [address] Oliverio Quinn MD Subacute vaginitis (Primary Dx); Encounter for immunization; Acute cough; Dietary counseling; Exercise counseling; Class 1 obesity due to excess calories without serious comorbidity with body mass index (BMI) of 33.0 to 33.9 in adult; Coital headache 04/14/2025 Travel 04/11/2025 Telephone [facility] [address] [place] [address] Esther Nelson MA Chart Prep 04/10/2025 11:00 AM EDT Procedure Visit [facility] MEDICINE [address] [place] [phone] Cale Perez CNM Other mechanical complication of intrauterine contraceptive device, initial encounter (Primary Dx); Cervical cancer screening; Abnormal uterine bleeding; Vaginal odor 04/10/2025 Travel 04/09/[address] [address] Cale Perez CNM chart prep 03/27/2025 1:30 PM EDT Office Visit [facility] ADULT DENTAL [address] [place] [address] Singer-Andrews , Emily, DDS External resorption of root of tooth (Primary Dx) 03/27/2025 Travel 03/25/2025 1:00 PM EDT Office Visit [facility] ADULT DENTAL [address] [place] [address] Singer-Andrews , Emily, DDS External resorption of root of tooth (Primary Dx); Symptomatic periapical periodontitis 03/20/2025 Results Follow-Up [facility] MED & PEDS [address] [place] [address] Cassy Arellano RN Bacterial Vaginosis Panel, Chlamydia/N. Gonorrhoeae RNA, TMA, Vaginal, POCT Urine 03/17/2025 6:40 PM EDT Office Visit [facility] WALK-IN CENTER [address] [place] [phone] Oliverio Quinn MD Subacute vaginitis (Primary Dx); Bloating symptom 03/17/2025 Travel from Last 3 Months Immunizations Immunization Administration Dates Next Due BCG 1999 DTP / HiB 1999,1999,1999 DTaP 03/05/2003, 1,1999,10/04,1999 HPV 9-Valent 10/08/2013,05/28/2013,11/14/2011 HPV, Quadrivalent 10/08/2013,05/28/2013,11/14/19 12 Hep B, Adolescent or Pediatric 11/18/2008,2007,05/13/2008 Hep B, Unspecified 11/18/2008,06/17/2008 HiB, unspecified 1999,1999 Hib (PRP-T) 1999 IPV 08/15/2003, 0,1999,07/16 Influenza injectable quadriv alent preservative free 07/07/2022,06/17/2021,07/17/2017,07/21 Influenza live intranasal qu adrivalent LIAV4 07/27/2015,05/28/2013 Influenza, Unspecified 07/21/2009,04/28/2008 Influenza, seasonal, injecta ble, preservative free 04/14/2025 MMR 06/17/2008,2005,02/02/2000 MMRV 06/17/2008 Meningococcal MCV4P ACYW-135 07/17/2017,08/10/19 11 Moderna Covid-19 Vaccine 6+ Bivalent 08/22/2022 Novel [id number], all formulations 05/12/2009 Tdap 10/10/2022,06/17/2021,08/10/2010 Varicella 05/25/2008 Social History Tobacco Use Types [...] Pressure 124/78 04/17/2025 9:55 AM EDT Pulse 93 04/14/2025 4:10 PM EDT Temperature 36.4 C (97.6 F) 04/10/2025 11:19 AM EDT Respiratory Rate 14 04/10/2025 11:19 AM EDT Oxygen Saturation 98% 04/14/2025 4:10 PM EDT Inhaled Oxygen Concentration - - Weight 78.9 kg (174 lb) 04/14/2025 4:10 PM EDT Height 153.7 cm (5' 0.5 ) 04/14/2025 4:10 PM EDT Body Mass Index 33.42 04/14/2025 4:10 PM EDT Plan of Treatment Upcoming Encounters Date Type Department Care Team (Late st Contact Info) Description 05/05/2025 9:30 AM EST Office Visit [facility] ADULT DENTAL [address] [place] [address] Emily Arzate DDS [address] [place] [address] 05/12/2025 1:30 PM EST Office Visit [facility] ADULT DENTAL [address] [place] [address] Emily Arzate, DDS [address] [place], [place] [phone] 05/26/2025 3:30 PM EST Office Visit [facility] CHC MED & PEDS [address] [place], [place] [phone] Oliverio Quinn MD [address] [place], [place] [phone] Health Maintenance Due Date Last Done Comments Dental Oral Exam 1999 Dental Prophylaxis 1999 Dental X-Ray: Full Mouth 1999 Lipid Panel 1999 SDOH Screening 01/03/2024 01/02/2023 COVID-19 Vaccine ( season) 2025 08/22/2022, 11/27/2020, 10/30/2020 Dental X-Ray: Bitewings 03/26/2026 03/25/2025 Alcohol/Substance Use Screening 04/10/2026 04/10/2025 Depression Screening 04/10/2026 04/10/2025, 04/10/20 25 Disability Screening 04/10/2026 04/10/2025 Family Planning (PISQ) 04/10/2026 04/10/2025 Tobacco Screening 04/17/2026 04/17/2025 Pap Smear 04/10/2028 04/10/2025 DTaP/Tdap/Td Vaccines (8 - Td or [...] 021 HIV Screening Completed 01/30/2023, 06/26, 02/11/2021 Influenza Vaccine Completed 04/14/2025, , 06/17/2021, Additional history exists Hepatitis A Vaccines Aged Out No long [...] Procedure Name Priority Date/Time Associated Diagnosis Comments CASE PRESENTATION, DETAILED AND EXTENSIVE TREATMENT PLANNING Routine 04/17/2025 9:30 AM EDT Full coverage crown needed for root canal-treated tooth INTRAORAL - PERIAPICAL FIRST RADIOGRAPHIC IMAGE Routine 04/17/2025 9:30 AM EDT Full coverage crown needed for root canal-treated tooth CROWN PREP Routine 04/17/2025 9:30 AM EDT Full coverage crown needed for root canal-treated tooth 13 PREFABRICATED POST AND CORE IN ADDITION TO CROWN Routine 04/17/2025 9:30 AM EDT Full coverage crown needed for root canal-treated tooth PAP SMEAR Routine 04/10/2025 12:00 PM EDT Cervical cancer screening POCT WET MOUNT/CHANDU Routine 04/10/2025 11 :51 AM EDT Vaginal odor POCT , URINE Routine 04/10/2025 11:33 AM EDT Abnormal uterine bleeding MS REMOVAL INTRAUTERINE DEVICE IUD Routine 04/10/2025 11:00 [...] Routine 03/17/2025 7:00 PM EDT Subacute vaginitis CYN HISTORICAL HEPATITIS C ANTIBODY Routine 02/11/2021 11:15 AM EDT from Last 3 Months or Most Recently Relevant to Health Maintenance Results * Pap Smear (04/10/2025 12:00 PM EDT) Swab Cervix uteri structure / Unknown 04/10/2025 12:00 PM EDT 04/11/2025 6:00 AM EDT [facility] - 04/15/2025 10:58 AM EDT ----- ------- Name: Jennifer Soni Age/Sex: 25/F : 2000 Unit#: [id number] Attend Dr: CALE PEREZ CNM Re04/10/25 Status: DEP REF Location: [facility] Disch: ----- ------- SPEC : [id number] RECD: 04/11/25 STATUS: ALEXANDER CHRISTINA NUM: [id number] FLORENCIO: 04/10/25-[address] [facility] [address]: CALE PEREZ ENTERED: 04/11/25 SP TYPE: Pap Smr OTHR DR: ORDERED: Pap Smear Interpretation Satisfactory for evaluation. Negative for intraepithelial lesion or malignancy. Clinical Information LMP: Previous PAP test: Unk Other surgery: Other history: Material Received ThinPrep-Cervical ----- ------- Signed (signature on file) OSWALD Greer ([facility]) 04/15/25 1058 ----- ------- END OF REPORT Cale Perez CNM LAB CYTOLOGY ORDERABLES F inal Result [facility] [address] [place] [phone] * POCT fern test, vaginal fluid manually resulted (04/10/2025 11:51 AM EDT) CHANDU Prep Negative Comment:neg whiff, neg clue, neg trich, neg yeast, neg wbc Vaginal Fluid Vaginal structure / Unknown 04/10/2025 11:51 AM EDT Cale Perez CNM POINT OF CARE TEST ENTER/ EDIT ORDERABLES Final Result * POCT , urine manually resulted (04/10/2025 11:33 AM EDT) Only the most recent of2 resultswithin the time period is included. Preg Test, Ur Negative Negative, Indeterminate, None Detected, Invalid, Specimen unsatisfactory for evaluation, Weakly Positive, 2+ QC Media Lot # [id number] Lot# Expiration Date [id number] Urine 04/10/2025 11:3 3 AM EDT Cale Perez CNM POINT OF CARE TEST ENTER/ EDIT ORDERABLES Final Result * MS REMOVAL INTRAUTERINE DEVICE IUD (04/10/2025 11:00 AM EDT) Narrative Cale Perez CNM - 04/10/2025 11:00 AM EDT Cale Perez CNM 04/10/2025 11:54 AM IUD Management Performed by: Cale Perez CNM Authorized by: Cale Perez CNM Procedure: IUD removal Consent obtained by patient, parent, or legal power of catering manager - including discussion of procedure risks and [...] forceps after betadine prep. Will check ultrasound. Cale Perez CNM IN CLINIC/BEDSIDE ORDERAB LES Final Result * Bacterial Vaginosis Panel (03/17/2025 7:00 PM EDT) TRICHOMONAS VAGINALIS DETECTION BY PCR NOT DETECTED Not Detect [facility] BACTERIAL VAGINOSIS DETECTION BY PCR NEGATIVE Negative [facility] Comment:The BV organism targ ets [...] DETECTION BY PCR NOT DETECTED Not Detect [facility] Francisca glab krusei PCR NOT DETECTED Not Detect [facility] Swab Vaginal structure / Unknown 03/17/2025 7:00 PM EDT 03/18/2025 12:20 PM EDT us Oliverio Quinn MD LAB MICROBIOLOGY - GENERAL ORDERABLES Final Result [facility] [address] [place] [address] [phone] * Chlamydia/N. Gonorrhoeae RNA, TMA, Vaginal (03/17/2025 7:00 PM EDT) CT PCR NOT DETECTED Not Detect. [facility] Comment:A not detected test result [...] psychologicalconsequences. NG PCR NOT DETECTED Not Detect. [facility] Comment:A not detected test result [...] 7:00 PM EDT 03/18/2025 12:20 PM EDT Oliverio Quinn MD LAB MICROBIOLOGY - GENERAL ORDERABLES Final Result [facility] [address] [place] [phone] * Hepatitis C Antibody (02/11/2021 11:15 AM EDT) Pathologist [facility] [place] Hepatitis C Antibody Nonreactive Nonreactive [facility] [...] of detection of this assay. The [employer] Psychologist Experimental HIV Ag/Ab Combo assay result and supplemental assay results should be interpreted in conjunction with the patient's clinical presentation, history and other laboratory results. If the results are inconsistent with clinical evidence, additional testing is suggested to confirm the result. Hepatitis B Surface Antigen Negative Negative [facility] 02/11/2021 11:1 5 AM EDT Pennie Taveras HISTORICAL/NON ORDERABLE LABS Fi nal Result [facility] [address] from Last 3 Months or Most Recently Relevant to Health Maintenance [facility] ADULT DENTAL - [place] FULL (MEDICAID) Care Teams Operater Relationship Specialty Start Date End Date Oliverio Quinn MD [address] [place] [phone] PCP - General Internal Medicine 04/14/25
--- OUTSIDE RECORDS SUMMARY | 2025-04-17 19:39 | XMS_ITS | Clinical Summary ---
Author Organization [facility] Address [address] [place] [phone] Phone Care Team Providers Care Toll Gate Keeper Name Role Phone Unavailable Primary Care Provider Unavailabl e Allergies No known active allergies Medications No known medications Active Problems Problem Noted Date Diagnosed Date Pediatric body mass index (B [place]) of 85th percentile to less than 95th [...] complete this topic Procedures * Due to [place] [employer] law, this organization might not be sharing sensitive test results. Procedure Name Priority Date/Time Associated Diagnosis Comments CHLAMYDIA TRACHOMATIS RNA TMA, UROGENITAL (REFL) Routine 07/17/2017 10:52 AM EST Well adult exam from Last 3 Months or Most Recently Relevant to Health Maintenance Results * Due to [place] [employer] law, this organization might not be sharing [...]
--- OUTSIDE RECORDS SUMMARY | 2025-04-17 19:39 | XMS_ITS | Encounter Summary ---
Author Organization [employer] Address [address] [facility] [address] [place] [address] Care Team Providers Care Public Records Officer Name Role Phone Rosey Rojas Primary Care Provider [phone] Miya Parker NP Primary Care Provider [phone] Oliverio Quinn MD Primary Care Provider [phone] Reason for Visit * Reason Onset Date Comments TP Appt required 01/18/2023 Encounter Details Date Type Department Care Team (Late st Contact Info) Description 01/18/2023 Telephone [facility] MED[facility]INE [address] [place], [place] [phone] Rosey Rojas FNP [address] [place] [address] TP Appt required Social History Tobacco Use [...] PCP Dr. Alberto. Please contact pt at [phone] documented in this encounter Plan of Treatment Upcoming Encounters Date Type Department Care Team (Late st Contact Info) Description 05/05/2025 9:30 AM EST Office Visit [facility] ADULT DENTAL [address] [place] [address] Singer-Andrews, Emily, DDS [address] [place] [address] 05/12/2025 1:30 PM EST Office Visit [facility] ADULT DENTAL [address] [place] [address] Singer-Andrews, Emily, DDS [address] [place] [address] 05/26/2025 3:30 PM EST Office Visit [facility] PEDS [address] [place], [place] [phone] Oliverio Quinn MD [address] [place] [address] documented as of this encounter Visit Diagnoses Not on filedocumented in this encounter Care Teams Public Records Officer Relationship Specialty Start Date End Date Rosey Rojas FNP [address] [place] [address] PCP - General Family Medicine 03/31/22 08/23/23 Miya Parker NP [address] [place] [address] PCP - General Family Medicine 08/24/23 10/19/23 Oliverio Quinn MD [address] [place] [address] PCP - General Internal Medicine 04/14/25 documented as of this encounter
--- OUTSIDE RECORDS SUMMARY | 2025-04-17 19:39 | XMS_ITS | Encounter Summary ---
Author Organization [facility] Address [address] [place] [address] Phone Care Team Providers Care Program Or Project Administrator Name Role Phone Elena Chavez MD Primary Care Provider [phone] Encounter Details Date Type Department Care Team (Late st Contact Info) Description 02/01/2017 Conversion Encounter [facility] - [address], [address] [place] [address] Elena Chavez MD [address] [place] [address] Social History Tobacco Use Types Packs/Day Years [...] on filedocumented in this encounter Care Teams Program Or Project Administrator Relationship Specialty Start Date End Date Elena Chavez MD [address] [place] [address] PCP - General 08/16/16 02/02/21 documented as of this encounter
--- OUTSIDE RECORDS SUMMARY | 2025-04-17 19:39 | XMS_ITS | Encounter Summary ---
Author Organization [employer] Address [address] [facility] 7t [place] [address] Care Team Providers Care Hotel Or Motel Manager Name Role Phone Oliverio Quinn MD Primary Care Provider [phone] Reason for Visit * Reason Onset Date Comments Results 04/15/2025 Encounter Details Date Type Department Care Team ([facility] st Contact Info) Description 04/15/2025 Results Follow-Up [facility] MED[facility]INE [address] [place] [address] Alida Velasquez CNM [address] [place] [address] Pap Smear, POCT , urine manually resulted Social History Tobacco Use Types Packs/Day Years [...] encounter Miscellaneous Notes * Telephone Encounter - Guerda Bull RN - 04/17/2025 11:07 AM EDT Pt came in for self swab. Specimen collected, processed, and sent to lab to be ran. * Telephone Encounter - Guerda Bull RN - 04/15/2025 3:04 PM EDT Telephone call placed to centralized scheduling. They reported pelvic US scheduled for 05/01/25 @1:30pm Thanks! I put in bacterial vaginosis order. Can you see if she has pelvic ultrasound appointment yet? * Result Encounter Note - Alida Velasquez CNM - 04/15/2025 1:45 PM EDT Thanks! I put in bacterial vaginosis order. Can you see if she has pelvic ultrasound appointment yet? * Telephone Encounter - Guerda Bull RN - 04/15/2025 1:07 PM EDT Telephone call placed to pt regarding below results and POC. Informed pap normal and no evidence ofbacterial vaginosis or yeast on PAP. Inquired about vaginal symptoms. Pt reports ongoing pink discharge and odor. She is agreeable to self swab. Informed can come to [facility] or go to [facility], whateveris more convenient for her. Pt states will come to [facility] as she has an appointment so will be here that day already. * Telephone Encounter - Guerda Bull RN - 04/15/2025 1:04 PM EDT ----- Message from Alida Velasquez sent at 04/15/2025 12:13 PM EDT ----- Please let Jennifer know her pap was normal, no evidence of bacterial vaginosis or yeast on pap. If she continues to have vaginal symptoms, may come in and self collect bacterial vaginosis swab. Thanks! ----- Message ----- From: Roselia Marsh MA Sent: 04/10/2025 11:34 AM EDT To: Alida Velasquez CNM * Result Encounter Note - Alida Velasquez CNM - 04/15/2025 12:13 PM EDT Please let Jennifer know her pap was normal, no evidence of bacterial vaginosis or yeast on pap. If she continues to have vaginal symptoms, may come in and self collect bacterial vaginosis swab. Thanks! documented in this encounter Plan of Treatment Upcoming Encounters Date Type Department Care Team (Late st Contact Info) Description 05/05/2025 9:30 AM EST Office Visit [facility] ADULT DENTAL [address] [place] [address] Emily Arzate, DDS [address] [place] [address] 05/12/2025 1:30 PM EST Office Visit [facility] ADULT DENTAL [address] [place] [address] SingerEmily Ac, DDS [address] [place] [address] 05/26/2025 3:30 PM EST Office Visit [facility] MED [facility] PED[facility] [address] [place] [address] Oliverio Quinn MD [address] [place] [address] documented as of this encounter Visit Diagnoses Not on filedocumented in this encounter Care Teams Hotel Or Motel Manager Relationship Specialty Start Date End Date Oliverio Quinn MD [address] [place] [address] PCP - General Internal Medicine 04/14/25 documented as of this encounter
[2025-04-18 05:39] LABS: Bacterial Vaginosis PCR NEGATIVE (Negative); Candida Group PCR NOT DETECTED (Not Detect); Candida glab krusei PCR NOT DETECTED (Not Detect); Trichomonas vaginalis PCR NOT DETECTED (Not Detect)
== END 2025-04-17 17:26 | disposition home or self-care (01) ==
LOC: HO.HHCLNP 17:25
PROVIDERS: Visit Provider Advanced Practice Midwife
DX: N89.8 Other specified noninflammatory disorders of vagina (principal); Z20.2 Contact with and (suspected) exposure to infections with a predominantly sexual mode of transmission
CPT/HCPCS: 81515

== ENCOUNTER 2025-05-01 13:33 | Outpatient (REF) | payer MEDICAID, OTHER, SELFPAY ==
--- NOTE | ~2025-05-01 | US_ITS ---
EXAMINATION: US PELVIS CLINICAL INFORMATION: IUD strings not seen on exam COMPARISON: None available. TECHNIQUE: Ultrasound of the pelvis is performed using both transabdominal and transvaginal transducers along with Doppler. Transvaginal imaging is performed due to inadequate visualization transabdominally. FINDINGS: Uterus: The uterus is anteflexed and measures 8.1 x 5.3 x 5.3 cm. The double wall endometrial thickness is 5 mm. Degenerative IUD is documented in the upper uterine canal. The uterus is smooth in contour and has normal myometrial echogenicity. No visible fibroid. Adnexa: Both ovaries are visualized. There is normal color flow to the adnexa. There is no ovarian torsion. There is no pelvic ascites or fluid collection. Right ovary measures 3.1 x 1.8 x 2.3 cm. Left ovary measures 3.6 x 1.8 x 2.8 cm. US/US pelvic and transvaginal IMPRESSION: IUD is positioned in the upper uterine canal. Electronically signed by: Ayo Raymundo MD 05/01/2025 02:19 PM EST
--- OUTSIDE RECORDS SUMMARY | 2025-05-01 14:40 | XMS_ITS | Encounter Summary ---
Author Organization [employer] Address [address] [facility] 7t [place] [address] Care Team Providers Care Case Preparer And Liner Name Role Phone Oliverio Quinn MD Primary Care Provider [phone] Reason for Visit * Reason Comments Cough Encounter Details Date Type Department Care Team ([facility] st Contact Info) Description 05/01/2025 2:40 PM EST Office Visit [facility] [address] [place], [place] [phone] Cough in adult patient Social History Tobacco Use Types Packs/Day Years [...] Sign Reading Time Taken Comments Blood Pressure 121/73 05/01/2025 2:44 PM EST Pulse 90 05/01/2025 2:44 PM EST Temperature 36.8 C (98.2 F) 05/01/2025 2:44 PM EST Respiratory Rate 18 05/01/2025 2:44 PM EST Oxygen Saturation 98% 05/01/2025 2:44 PM EST Inhaled Oxygen Concentration - - Weight 79.4 kg (175 lb) 05/01/2025 2:44 PM EST Height - - Body Mass Index 33.61 04/14/2025 4:10 PM EDT documented in this encounter Plan of Treatment Upcoming Encounters Date Type Department Care Team (Late st Contact Info) Description 05/05/2025 9:30 AM EST Office Visit [facility] ADULT DENTAL [address] [place] [address] Emily Arzate, DDS [address] [place] [address] 05/12/2025 1:30 PM EST Office Visit [facility] ADULT DENTAL [address] [place] [address] Emily Arzate, DDS [address] [place] [address] 05/26/2025 3:30 PM EST Office Visit [facility] MED & PEDS [address] [place] [address] Oliverio Quinn MD [address] [place] [address] documented as of this encounter Procedures Procedure Name Priority Date/Time Associated Diagnosis Comments POCT INFLUENZA B (ID NOW RAPID MOLECULAR) Routine 05/01/2025 3:00 PM EST Cough in adult patient POCT INFLUENZA A (ID NOW RAPID MOLECULAR) Routine 05/01/2025 3:00 PM EST Cough in adult patient POCT RAPID COVID ANTIGEN Routine 05/01/2025 2:48 PM EST Cough in adult patient documented in this encounter Results * Influenza B (ID NOW Rapid Molecular) (05/01/2025 3:00 PM EST) Pathologist [facility] Influenza B Negative Negative, Indeterminate [facility] Swab 05/01/2025 3:00 PM EST us Lisa Okhipo DRAMATIC CRITIC POINT OF CARE TEST ENTER/EDIT ORDERABLES Final Result Performing Organization Address [facility] Co de Phone Number [facility] [address] [place] [phone] * Influenza A (ID NOW Rapid Molecular) (05/01/2025 3:00 PM EST) [facility] Influenza A Negative Negative, Indeterminate [facility] Swab 05/01/2025 3:00 PM EST us Lisa Okhipo DRAMATIC CRITIC POINT OF CARE TEST ENTER/EDIT ORDERABLES Final Result Performing Organization Address [facility] Co de Phone Number [facility] [address] [place] [phone] * POCT Rapid COVID Ag (05/01/2025 2:48 PM EST) [facility] Rapid COVID Ag Negative Swab 05/01/2025 2:48 PM EST us Lisa Okhipo DRAMATIC CRITIC POINT OF CARE TEST ENTER/EDIT ORDERABLES Final Result documented in this encounter Visit Diagnoses Diagnosis Cough in adult patient documented in this encounter Care Teams Case Preparer And Liner Relationship Specialty Start Date End Date Oliverio Quinn MD [address] [place] [phone] PCP - General Internal Medicine 04/14/25 documented as of this encounter
--- OUTSIDE RECORDS SUMMARY | 2025-05-01 16:29 | XMS_ITS | Encounter Summary ---
Author Organization [facility] Address [address] [place] [address] Phone Care Team Providers Care Library Sales Consultant Name Role Phone Elena Chavez MD Primary Care Provider [phone] Encounter Details Date Type Department Care Team (Late st Contact Info) Description 02/01/2017 Conversion Encounter [facility] - [address], [address] [place] [address] Elena Chavez MD [address] [place] [address] Social History Tobacco Use Types Packs/Day Years [...] on filedocumented in this encounter Care Teams Library Sales Consultant Relationship Specialty Start Date End Date Elena Chavez MD [address] [place] [address] PCP - General 08/16/16 02/02/21 documented as of this encounter
--- OUTSIDE RECORDS SUMMARY | 2025-05-01 16:29 | XMS_ITS | Clinical Summary ---
Author Organization [employer] Address [address] [facility] 7t [place] [address] Care Team Providers Care Teller Supervisor Name Role Phone Oliverio Quinn MD Primary Care Provider [phone] Allergies No known active allergies Medications pyridoxine [...] prescriber. 1 tablet 11 04/10/20 25 Active sodium chloride ([place] Nasal [place]) 0.65 % nasal spray Administer 1 spray into each nostril if needed for congestion. 30 mL 12 05/01/20 25 026 Active Vit-Fe Fumarate-FA ( Vitamins) 28-0.8 MG tablet 025 Discontinued ibuprofen 800 MG tablet Take 1 tablet [...] Encounters Date Type Department Care Team Description 05/01/2025 2:40 PM EST Office Visit [facility] WALK-[facility] CENTER [address] [place] [address] Cough in adult patient 05/01/2025 Travel 04/18/2025 Results Follow-Up [facility] MEDICINE [address] [place] [address] Cale Perez CNM Bacterial Vaginosis 04/17/2025 9:30 AM EDT Office Visit [facility] ADULT DENTAL [address] [place] [address] Singer-Andrews KbEmily, DDS Full coverage crown needed for root canal-treated tooth (Primary Dx) 04/15/2025 Orders Only [facility] MEDICINE [address] [place] [address] Cale Perez CNM Vaginal odor (Primary Dx) 04/15/2025 Results Follow-Up [address] [address] Cale Perez CNM Pap Smear, POCT , urine manually resulted, US Pelvis Transvaginal 04/14/2025 4:00 PM EDT Office Visit [facility] MED & PED[facility] [address] [place] [address] Oliverio Quinn MD Subacute vaginitis (Primary Dx); Encounter for immunization; Acute cough; Dietary counseling; Exercise counseling; Class 1 obesity due to excess calories without serious comorbidity with body mass index (BMI) of 33.0 to 33.9 in adult; Coital headache 04/14/2025 Travel 04/11/2025 Telephone [facility] P[facility] [address] [place] [address] Esther Nelson MA Chart Prep 04/10/2025 11:00 AM EDT Procedure Visit [address] [address] Cale Perez CNM Other mechanical complication of intrauterine contraceptive device, initial encounter (Primary Dx); Cervical cancer screening; Abnormal uterine bleeding; Vaginal odor 04/10/2025 Travel 04/09/[address] [address] Cale Perez CNM chart prep 03/27/2025 1:30 PM EDT Office Visit [facility] ADULT DENTAL [address] [place] [address] Singer-Andrews , Emily, DDS External resorption of root of tooth (Primary Dx) 03/27/2025 Travel 03/25/2025 1:00 PM EDT Office Visit [facility] ADULT DENTAL [address] [place] [address] Singer-Andrews , Emily, DDS External resorption of root of tooth (Primary Dx); Symptomatic periapical periodontitis 03/20/2025 Results Follow-Up [facility] P[facility] [address] [place] [address] Cassy Arellano RN Bacterial Vaginosis Panel, Chlamydia/N. Gonorrhoeae RNA, TMA, Vaginal, POCT Urine 03/17/2025 6:40 PM EDT Office Visit [facility] [address] [place] [address] Oliverio Quinn MD Subacute vaginitis (Primary Dx); [...] Moderna Covid-19 Vaccine 6+ Bivalent 08/22/2022 Novel [id number], all formulations 05/12/2009 Tdap 10/10/2022,06/17/2021,08/10/2010 Varicella 05/25/2008 [...] (175 lb) 05/01/2025 2:44 PM EST Height 153.7 cm (5' 0.5 ) 04/14/2025 4:10 PM EDT Body Mass Index 33.61 04/14/2025 4:10 PM EDT Plan of Treatment Upcoming Encounters Date Type Department Care Team (Late st Contact Info) Description 05/05/2025 9:30 AM EST Office Visit [facility] ADULT DENTAL [address] [facility] [place] [address] Emily Arzate, DDS [address] [place] [address] 05/12/2025 1:30 PM EST Office Visit [facility] ADULT DENTAL [address] [facility] [place] [address] Emily Arzate, DDS [address] [place] [address] 05/26/2025 3:30 PM EST Office Visit [facility] MED & PEDS [address] [place], [place] [phone] Oliverio Quinn MD [address] [place] [address] Health Maintenance Due Date Last Done Comments Dental Oral Exam 1999 Dental Prophylaxis 1999 Dental X-Ray: Full Mouth 1999 Lipid Panel 1999 SDOH Screening 01/03/2024 01/02/2023 COVID-19 Vaccine ( season) 2025 08/22/2022, 11/27/2020, 10/30/2020 Dental X-Ray: Bitewings 03/26/2026 03/25/2025 Alcohol/Substance Use Screening 04/10/2026 04/10/2025 Depression Screening 04/10/2026 04/10/2025, 04/10/20 25 Disability Screening 04/10/2026 04/10/2025 Family Planning (PISQ) 04/10/2026 04/10/2025 Tobacco Screening 05/01/2026 05/01/2025 Pap Smear 04/10/2028 04/10/2025 DTaP/Tdap/Td Vaccines (8 [...] history exists Meningococcal Vaccine Completed 07/17/2017, 011 HIV Screening Completed 02/11/2021 Hepatitis C Screening Completed 07/07/2022, 021 Influenza Vaccine Completed 04/14/2025, , 06/17/2021, Additional [...] 2:48 PM EST Cough in adult patient US PELVIS TRANSVAGINAL Urgent 05/01/2025 1:40 PM EST Other mechanical complication of intrauterine contraceptive device, initial encounter BACTERIAL VAGINOSIS PANEL Routine 04/17/2025 11:05 AM EDT Vaginal odor CASE PRESENTATION, DETAILED AND EXTENSIVE TREATMENT PLANNING [...] 04/10/2025 11:33 AM EDT Abnormal uterine bleeding KS REMOVAL INTRAUTERINE DEVICE IUD Routine 04/10/2025 11:00 [...] Recently Relevant to Health Maintenance Results * Influenza B (ID NOW Rapid Molecular) (05/01/2025 3:00 PM EST) [facility] Influenza B Negative Negative, Indeterminate [facility] Swab 05/01/2025 3:00 PM EST us Lisa Okhipo SALES SUPPORT REP POINT OF CARE TEST ENTER/EDIT ORDERABLES Final Result Performing Organization Address [facility]/ZIP Co de Phone Number [facility] [address] [place] [phone] * Influenza A (ID NOW Rapid Molecular) (05/01/2025 3:00 PM EST) [facility] Influenza A Negative Negative, Indeterminate [facility] Swab 05/01/2025 3:00 PM EST us Lisa Okhipo SALES SUPPORT REP POINT OF CARE TEST ENTER/EDIT ORDERABLES Final Result Performing Organization Address [facility] Co de Phone Number [facility] [address] [place] [phone] * POCT Rapid COVID Ag (05/01/2025 2:48 PM EST) [facility] Rapid COVID Ag Negative Swab 05/01/2025 2:48 PM EST us Lisa Okhipo SALES SUPPORT REP POINT OF CARE TEST ENTER/EDIT ORDERABLES Final Result * US Pelvis Transvaginal (05/01/2025 1:40 PM EST) Anatomical Region Laterality Modality Pelvis Ultrasound 05/01/2025 1:40 PM EST Narrative 05/01/2025 2:22 PM EST [address] [address] Ultrasound Report Signed with Ramakrishna Patient: Jennifer Soni MR#: [id number] : 2000 Acct:[id number] Age/Sex: 25 / F ADM Date: 05/01/25 Loc: HO.US Attending Dr: Cale Perez CNM Ordering Physician: CALE PEREZ CNM Date of Service: 05/01/25 Procedure(s): US pelvic and transvaginal Accession Number(s): [id number] cc: CALE PEREZ CNM Reason for Exam: IUD strings not seen on exam, please localize IUD ADDENDUM ADDENDUM #1 Addendum for report correction In the findings, there is a sentence stating Degenerative IUD is documented in the upper uterine canal. The word Degenerative should not be in the sentence. Electronically signed by: Ayo Raymundo MD 05/01/2025 02:31 PM EST Addendum Dictated By: Ayo Raymundo MD Addendum Signed By: <Electronically signed by Ayo Raymundo MD in OV> 05/01/25 1431 Addendum Cosigned By: DD/ /19/1339 TD/TT: 05/01/2512/19/1355 EXAMINATION: US PELVIS CLINICAL INFORMATION: IUD strings not seen on exam COMPARISON: None available. TECHNIQUE: Ultrasound of the pelvis is performed using both transabdominal and transvaginal transducers along with Doppler. Transvaginal imaging is performed due to inadequate visualization transabdominally. FINDINGS: Uterus: The uterus is anteflexed and measures 8.1 x 5.3 x 5.3 cm. The double wall endometrial thickness is 5 mm. Degenerative IUD is documented in the upper uterine canal. The uterus is smooth in contour and has normal myometrial echogenicity. No visible fibroid. Adnexa: Both ovaries are visualized. There is normal color flow to the adnexa. There is no ovarian torsion. There is no pelvic ascites or fluid collection. Right ovary measures 3.1 x 1.8 x 2.3 cm. Left ovary measures 3.6 x 1.8 x 2.8 cm. US/US pelvic and transvaginal IMPRESSION: IUD is positioned in the upper uterine canal. Electronically signed by: Ayo Raymundo MD 05/01/2025 02:19 PM EST RP Dictated By: Ayo Raymundo MD Signed By: <Electronically signed by Ayo Raymundo MD in OV> 05/01/25 1419 DD/ 1340 TD/TT: 05/01/25 1356 Bleacher Sulfite Pulp: Procedure Note Donotuseinterpreter, Image - 05/01/2025 [place] [address] Ultrasound Report Signed with Addenda Patient: Genny Soni#: [id number] : 2000Acct:[id number] Age/Sex: Date: 05/01/25 Loc: HO.US Attending Dr: Cale Perez CNM Ordering Physician: CALE PEREZ CNM Date of Service: 05/01/25 Procedure(s): US pelvic and transvaginal Accession Number(s): [id number] cc: CALE PEREZ CNM Reason for Exam: IUD strings not seen on exam, please localize IUD ADDENDUM ADDENDUM #1 Addendum for report correction In the findings, there is a sentence stating Degenerative IUD is documented in the upper uterine canal. The word Degenerative should not be in the sentence. Electronically signed by: Ayo Raymundo MD 05/01/2025 02:31 PM EST RP Addendum Dictated By: Ayo Raymundo MD Addendum Signed By: <Electronically signed by Ayo Yousif MD in OV> 05/01/25 1431 Addendum Cosigned By: DD/ /19/1339 TD/TT: 05/01/2512/19/1355 EXAMINATION: US PELVIS CLINICAL INFORMATION: IUD strings not seen on exam COMPARISON: None available. TECHNIQUE: Ultrasound of the pelvis is performed using both transabdominal and transvaginal transducers along with Doppler. Transvaginal imaging is performed due to inadequate visualization transabdominally. FINDINGS: Uterus: The uterus is anteflexed and measures 8.1 x 5.3 x 5.3 cm. The double wall endometrial thickness is 5 mm. Degenerative IUD is documented in the upper uterine canal. The uterus is smooth in contour and has normal myometrial echogenicity. No visible fibroid. Adnexa: Both ovaries are visualized. There is normal color flow to the adnexa. There is no ovarian torsion. There is no pelvic ascites or fluid collection. Right ovary measures 3.1 x 1.8 x 2.3 cm. Left ovary measures 3.6 x 1.8 x 2.8 cm. US/US pelvic and transvaginal IMPRESSION: IUD is positioned in the upper uterine canal. Electronically signed by: Ayo Raymundo MD 05/01/2025 02:19 PM [facility] Dictated By: Ayo Raymundo MD Signed By: <Electronically signed by Ayo Raymundo MD in OV> 05/01/25 1419 DD/ 1340 TD/TT: 05/01/25 1356 Bleacher Sulfite Pulp: us Cale CURRAN IM US PROCEDURES Edited Result - Final * Bacterial Vaginosis (04/17/2025 11:05 AM EDT) Only the most recent of2 resultswithin the time period is included. TRICHOMONAS VAGINALIS DETECTION BY PCR NOT DETECTED Not Detect [facility] BACTERIAL VAGINOSIS DETECTION BY PCR NEGATIVE Negative [facility] Comment:The BV organism targ ets of [...] DETECTION BY PCR NOT DETECTED Not Detect [facility] Francisca glab krusei PCR NOT DETECTED Not Detect [facility] 04/17/2025 11:0 5 AM EDT 04/17/2025 5:28 PM EDT us Cale Perez CNM LAB MICROBIOLOGY - GENERA L ORDERABLES Final Result [facility] [address] [place] [phone] * Pap Smear (04/10/2025 12:00 PM EDT) Swab Cervix uteri structure / Unknown 04/10/2025 12:00 PM EDT 04/11/2025 6:00 AM EDT Narrative [facility] - 04/15/2025 10:58 AM EDT ----- ------- Name: Jennifer Soni Age/Sex: 25/F : 2000 Unit#: [id number] Attend Dr: CALE PEREZ CNM Re04/10/25 Status: DEP REF Location: [facility] Disch: ----- ------- SPEC : [id number] RECD: 04/11/25 STATUS: ALEXANDER VASQUEZ NUM: [id number] FLORENCIO: 04/10/25-[address]: CALE PEREZ CNM ENTERED: 04/11/25 SP TYPE: Pap Smr OTHR DR: ORDERED: Pap Smear Interpretation Satisfactory for evaluation. Negative for intraepithelial lesion or malignancy. Clinical Information LMP: Previous PAP test: Unk Other surgery: Other history: Material Received ThinPrep-Cervical ----- ------- Signed (signature on file) OSWALD Greer (ASCP) 04/15/25 1058 ----- ------- END OF REPORT us Cale Perez CNM LAB CYTOLOGY ORDERABLES F inal Result [facility] [address] [place] [phone] * POCT fern test, vaginal fluid [...] Media Lot # [id number] Lot# Expiration Date [id number] Urine 04/10/2025 11:3 3 AM EDT Cale Perez CNM POINT OF CARE TEST ENTER/ EDIT ORDERABLES Final Result * KS REMOVAL INTRAUTERINE DEVICE IUD (04/10/2025 11:00 AM EDT) Cale Blanco CNM - 04/10/2025 11:00 AM EDT Cale Perez CNM 04/10/2025 11:54 AM IUD Management Performed by: Cale Perez CNM Authorized by: Cale Perez CNM Procedure: IUD removal Consent obtained by patient, parent, or legal power of managing attorney - including discussion of procedure risks [...] IN CLINIC/BEDSIDE ORDERAB LES Final Result * Chlamydia/N. Gonorrhoeae RNA, TMA, Vaginal (03/17/2025 7:00 PM EDT) Pathologist [facility] CT PCR NOT DETECTED Not Detect. [facility] Comment:A not detected test result does [...] psychologicalconsequences. NG PCR NOT DETECTED Not Detect. [facility] Comment:A not detected test result does [...] LAB MICROBIOLOGY - GENERAL ORDERABLES Final Result [facility] [address] [place] [phone] * Hepatitis C Antibody (02/11/2021 11:15 AM EDT) Pathologist [facility] Hepatitis C Antibody Nonreactive Nonreactive [facility] Comment: Antibodies to HCV not detected; does not exclude early acute HCV infection. HIV AB/AG Nonreactive Nonreactive [facility] Comment: HIV-1 p24 Ag and/or [...] of detection of this assay. The [place]gado Layer Off HIV Ag/Ab Combo assay result and supplemental [...] [facility] [address] from Last 3 Months or Most Recently Relevant to Health Maintenance [facility] MEDICAID LIMITED ADULT DENTAL - [facility] FULL (MEDICAID) Care Teams Teller Supervisor Relationship Specialty Start Date End Date Oliverio Quinn MD [address] [place] [phone] PCP - General Internal Medicine 04/14/25
--- OUTSIDE RECORDS SUMMARY | 2025-05-01 16:29 | XMS_ITS | Clinical Summary ---
Author Organization [facility] Address [address] [place] [address] Phone Care Team Providers Care Concrete Buildings Assembler Name Role Phone Unavailable Primary Care Provider [...] complete this topic Procedures * Due to [place] [employer] law, this organization might not be sharing sensitive test results. Procedure Name Priority Date/Time Associated Diagnosis Comments CHLAMYDIA TRACHOMATIS RNA TMA, UROGENITAL (REFL) Routine 07/17/2017 10:52 AM EST Well adult exam from Last 3 Months or Most Recently Relevant to Health Maintenance Results * Due to [place] [employer] law, this organization might not be sharing [...]
--- OUTSIDE RECORDS SUMMARY | 2025-05-01 16:29 | XMS_ITS | Encounter Summary ---
Author Organization [employer] Address [address] [facility] 7t [place] [address] Care Team Providers Care Senior Business Architect Name Role Phone Oliverio Quinn MD Primary Care Provider [phone] Reason for Visit * Reason Onset Date Comments Results 04/15/2025 Encounter Details Date Type Department Care Team (Latest Contact Info) Description 04/15/2025 Results Follow-Up [facility] MEDICINE [address] [place] [address] Alida Velasquez CNM [address] [place] [address] Pap Smear, POCT , urine manually resulted, US Pelvis Transvaginal Social History Tobacco Use Types Packs/Day Years [...] the past 12 months, has t he [employer], oil or water [employer] threatened to shut off services in your [...] Telephone Encounter - Guerda Bull RN - 05/01/2025 4:19 PM EST Incoming call from pt returning below call. Informed US looked good, IUD where it is supposed to be, in good position. Pt surprised to hear this but states she still would like to have it taken out. Informed referral to ORGANIZATIONAL DEVELOPMENT MANAGER will be placed. May have a wait list but if she doesn't hear from anyone toschedule an appointment, let us know. Pt verbalized understanding and denied having any further questions or concerns at this time. * Telephone Encounter - Guerda Bull RN - 05/01/2025 3:04 PM EST Telephone call placed to pt. No answer, left v/m. * Telephone Encounter - Guerda Bull RN - 05/01/2025 2:50 PM EST ----- Message from Alida Velasquez sent at 05/01/2025 2:31 PM EST ----- Please let Jennifer know ultrasound shows IUD in uterus in good position. If she would like removal, I can refer her to outside ORGANIZATIONAL DEVELOPMENT MANAGER office as I wasn't able to remove in office. Radiologist will be issuing addendum to remove degenerative IUD description. I confirmed with him. Thanks! ----- Message ----- From: Sia Ribera Results In Sent: 05/01/2025 2:22 PM EST To: Alida Velasquez CNM * Result Encounter Note - Alida Velasquez CNM - 05/01/2025 2:31 PM EST Please let Jennifer know ultrasound shows IUD in uterus in good position. If she would like removal, I can refer her to outside ORGANIZATIONAL DEVELOPMENT MANAGER office as I wasn't able to remove in office. Radiologist will be issuing addendum to remove degenerative IUD description. I confirmed with him. Thanks! * Result Encounter Note - Alida Velasquez CNM - 05/01/2025 8:27 AM EST Sorry, please disregard previous message, Pap results already relayed * Result Encounter Note - Alida Velasquez CNM - 05/01/2025 8:27 AM EST Please let Jennifer know her pap was normal. Repeat 3 years. Thanks! * Telephone Encounter - Guerda Bull RN [...] come to [facility] or go to [facility], whateveris more convenient for her. Pt states will come to [facility] as she has an appointment so will [...] Description 05/05/2025 9:30 AM EST Office Visit [facility] ADULT DENTAL [address] [place] [address] Singer-AndrewsKbEmily, DDS [address] [place] [address] 05/12/2025 1:30 PM EST Office Visit [facility] ADULT DENTAL [address] [place] [address] Singer-Andrews, Emily, DDS [address] [place] [address] 05/26/2025 3:30 PM EST Office Visit [facility] MED & PEDS [address] [place], [place] [phone] Oliverio Quinn MD [address] [place], [place] [phone] documented as of this encounter Visit Diagnoses Not on filedocumented in this encounter Care Teams Senior Business Architect Relationship Specialty Start Date End Date Oliverio Quinn MD [address] [place] [address] PCP - General Internal Medicine 04/14/25 documented as of this encounter
--- OUTSIDE RECORDS SUMMARY | 2025-05-01 16:29 | XMS_ITS | Encounter Summary ---
Author Organization [employer] Address 75 [facility] 7t [place] [address] Care Team Providers Care Individualized Education Plan Aide Name Role Phone Oliverio Quinn MD Primary Care Provider [phone] Encounter Details Date Type Department Care Team (Latest Contact Info) Description 05/01/2025 Travel Social History Tobacco Use Types Packs/Day [...] Visit [facility] ADULT DENTAL [address] [place] [address] Singer-Andrews, Emily, DDS [address] [place] [address] 05/12/2025 1:30 PM EST Office Visit [facility] ADULT DENTAL [address] [place] [address] Singer-Andrews, Emily, DDS [address] [place] [address] 05/26/2025 3:30 PM EST Office Visit [facility] CH[facility] MED & PEDS [address] [place], [place] [phone] Oliverio Quinn MD [address] [place] [address] documented as of this encounter Visit Diagnoses Not on filedocumented in this encounter Care Teams Individualized Education Plan Aide Relationship Specialty Start Date End Date Oliverio Quinn MD [address] [place] [address] PCP - General Internal Medicine 04/14/25 documented as of this encounter
--- OUTSIDE RECORDS SUMMARY | 2025-05-01 16:30 | XMS_ITS | Encounter Summary ---
Author Organization [employer] Address [address] [facility] 7t [place] [address] Care Team Providers Care Molding Engineer Name Role Phone Rosey Rojas Primary Care Provider [phone] Miya Parker NP Primary Care Provider [phone] Oliverio Quinn MD Primary Care Provider [phone] Reason for Visit * Reason Onset Date Comments TP Appt required 01/18/2023 Encounter Details Date Type Department Care Team (Late st Contact Info) Description 01/18/2023 Telephone [facility] MEDICINE [address] [place], [place] [phone] Rosey Rojas FNP [address] [place] [address] TP Appt required Social History Tobacco Use [...] PCP Dr. Alberto. Please contact pt at [phone] documented in this encounter Plan of Treatment Upcoming Encounters Date Type Department Care Team (Late st Contact Info) Description 05/05/2025 9:30 AM EST Office Visit [facility] ADULT DENTAL [address] [place] [address] Singer-Andrews, Emily, DDS [address] [place] [address] 05/12/2025 1:30 PM EST Office Visit [facility] ADULT DENTAL [address] [place] [address] Singer-Andrews, Emily, DDS [address] [place] [address] 05/26/2025 3:30 PM EST Office Visit [facility] CHC MED & PEDS [address] [place], [place] [phone] Oliverio Quinn MD [address] [place] [address] documented as of this encounter Visit Diagnoses Not on filedocumented in this encounter Care Teams Molding Engineer Relationship Specialty Start Date End Date Rosey Rojas FNP [address] [place] [address] PCP - General Family Medicine 03/31/22 08/23/23 Miya Parker NP [address] [place] [address] PCP - General Family Medicine 08/24/23 10/19/23 Oliverio Quinn MD [address] [place] [address] PCP - General Internal Medicine 04/14/25 documented as of this encounter
--- OUTSIDE RECORDS SUMMARY | 2025-05-01 16:30 | XMS_ITS | Encounter Summary ---
Author Organization [email or web address] Address [address] [facility] 7t [place] [address] Care Team Providers Care Fireworks Display Specialist Name Role Phone Rosey RojasP Primary Care Provider [phone] Miya Parker NP Primary Care Provider [phone] Oliverio Quinn MD Primary Care Provider [phone] Encounter Details Date Type Department Care Team (Late st Contact Info) Description 05/31/2022 Orders Only [facility] MEDICINE [address] [place] [address] Cornelia Olivarez, ALYSIA [address] [place] [address] Social History Tobacco Use Types Packs/Day Years [...] Description 05/05/2025 9:30 AM EST Office Visit [facility] ADULT DENTAL [address] [place] [address] Emily Arzate, DDS [address] [place] [address] 05/12/2025 1:30 PM EST Office Visit [facility] ADULT DENTAL [address] [place] [address] Singer-AndrewsKb harrisfemia, DDS [address] [place] [address] 05/26/2025 3:30 PM EST Office Visit [facility] MED & PEDS [address] [place] [address] Oliverio Quinn MD [address] [place], [place] [phone] documented as of this encounter Procedures Procedure [...] (02/23/2023 7:37 PM EDT) OBS1 POSITIVE NEGATIVE [facility] 02/23/2023 7:37 PM EDT 02/23/2023 7:40 PM EDT us [facility] External Provider LAB BLO OD ORDERABLES Final Result Performing Organization Address [facility] Co de Phone Number [facility] [address] [place] [address] [phone] * hCG, Total, Quantitative (02/23/2023 5:49 PM EDT) HCG Quantitative <2 mIU/mL [facility] Comment:Weeks post LMP Appro ximate hCG(Last Menstrual Period) Range (mIU/ml)3 - 4 weeks 9 - 1304 - 5 weeks 75 - 2,6005 - 6 weeks 850 - 20,8006 - 7 weeks 4000 - 100,2007 - 12 weeks 11,500 - 289,16564 - 16 weeks 18,300 - 137,72590 - 29 weeks (2nd trimester) 1,400 - 53,43208 - 41 weeks (3rd trimester) 940 - 60,000The Salgado B- hCG assay is used for the early detection ofpregnancy; it cannot be used to diagnose any conditionunrelated to . If a B-hCG level is not supportedby the clinical evidence, results should be confirmed by analternative method (qualitative urine hCG, for example). 02/23/2023 5:49 PM EDT 02/23/2023 5:53 PM EDT [facility] External Provider LAB BLO OD ORDERABLES Final Result Performing Organization Address [facility] Co de Phone Number [facility] [address] [place] [address] [phone] * (ABNORMAL) CBC auto differential (02/23/2023 5:49 PM EDT) White Blood Count 9.3 4.8 - 10.8 X10*3/uL [facility] Red Blood Count 4.69 4.20 - 5.50 X10*6/uL [facility] Hemoglobin 12.2 12.0 - 16.0 g/dl [facility] Hematocrit 37.4 37.0 - 47.0 % [facility] Mean Corpuscular Volume 79.7(L) 80.0 - 98.0 fL [facility] Mean Corpuscular Hemoglobin 26.0(L) 27.0 - 33.0 pg [facility] Mean Corpuscular HGB Conc 32.6 31.0 - 35.0 g/dl [facility] Red Cell Distribution Width 14.7 11.0 - 16.0 % [facility] Platelet Count 350 160 - 400 X10*3/uL [facility] Mean Platelet Volume 10.1 9.4 - 12.3 fL [facility] Neutrophils Percent Auto 53.2 45 - 73 % [facility] Imm Gran Pct Auto 0.3 0.0 - 0.4 % [facility] Lymphocytes Percent Auto 35.7 20 - 40 % [facility] Monocytes Percent Auto 7.2 2 - 11 % [facility] Eosinophils Percent Auto 2.8 0 - 4 % [facility] Basophils Percent Auto 0.8 0 - 2 % [facility] NRBC Pct Auto 0.0 0.0 - 0.2 /100WBC [facility] Neutrophils Absolute Auto 4.9 2.0 - 8.3 x10*3/uL [facility] Imm Gran Abs Auto 0.03 0.00 - 0.03 X10*3/uL [facility] Lymphocytes Absolute Auto 3.3 1.2 - 4.9 X10*3/uL [facility] Monocytes Absolute Auto 0.7 0.1 - 1.2 X10*3/uL [facility] Eosinophils Absolute Auto 0.3 0.0 - 0.4 X10*3/uL [facility] Basophils Absolute Auto 0.1 0.0 - 0.2 X10*3/uL [facility] NRBC Abs Auto 0.000 0.0 - 0.012 X10*3/uL [facility] 02/23/2023 5:49 PM EDT 02/23/2023 5:53 PM EDT us [facility] External Provider LAB BLO OD ORDERABLES Final Result [facility] [address] [place] [address] [phone] * Lipase (02/23/2023 5:49 PM EDT) Lipase 47 8 - 78 U/L [facility] 02/23/2023 5:49 PM EDT 02/23/2023 5:53 PM EDT us Generic External Data Provider LAB BLOOD ORDERAB LES Final Result [facility] [address] [place] [address] [phone] * (ABNORMAL) Comprehensive Metabolic Panel (02/23/2023 5:49 PM EDT) Pathologist [facility] Sodium 138 135 - 145 mmol/L [facility] Potassium 3.9 3.3 - 5.1 mmol/L [facility] Chloride 108 96 - 108 mmol/L [facility] Carbon Dioxide 20(L) 22 - 29 mmol/L [facility] Anion Gap 14 12 - 20 [facility] Urea Nitrogen (BUN) 13 9 - 16 mg/dL [facility] Creatinine, Serum 0.71 0.5 - 1.4 mg/dL [facility] Creatinine Clr Calc Pharmacy 108.9 [facility] Comment:Provided height and weight: 154.94 cm,68.3 kg.eGFR (calculated from the MDRD study equation) and eCrCl(calculated from the Cockcroft-Gault equation) are based ondifferent parameters and may not yield comparable results.If eCrCl result is absurd, please check patient'sheight/weight. Estimated Glomerular Filt Rate >60 [facility] Comment:NOTE: For -Am erican individuals, multiply the result by 1.210.Chronic Kidney Disease: Estimated GFR < 60 mL/min/1.11w1Pdruby Kidney Disease: Estimated GFR < 15 mL/min/1.73m2 Glucose 97 60 - 115 mg/dL [facility] Calcium 9.5 8.4 - 10.2 mg/dL [facility] Bilirubin, Total 0.2 0.0 - 1.0 mg/dL [facility] Aspartate Amino Transferase 20 5 - 31 U/L [facility] Alanine Aminotransferase 21 0 - 31 U/L [facility] Total Protein 8.4(H) 6.5 - 8.0 g/dL [facility] Albumin Level 4.5 3.5 - 5.0 g/dL [facility] Alkaline Phosphatase 149(H) 39 - 117 U/L [facility] 02/23/2023 5:49 PM EDT 02/23/2023 5:53 PM EDT [facility] External Provider LAB BLO OD ORDERABLES Final Result Performing Organization Address [facility] Co de Phone Number [facility] [address] [place] [phone] * Partial Thromboplastin Time, Activated (APTT) (02/23/2023 5:49 PM EDT) Partial Thromboplastin Time 33.9 26.0 - 36.4 SEC [facility] 02/23/2023 5:49 PM EDT 02/23/2023 5:53 PM EDT Generic External Data Provider LAB BLOOD ORDERAB LES Final Result Performing Organization Address [facility] Co de Phone Number [facility] [address] [place] [phone] * Prothrombin Time-INR (02/23/2023 5:49 PM EDT) Prothrombin Time 12.1 11.1 - 13.3 SEC [facility] INTERNATIONAL NORM RATIO 1.0 0.9 - 1.1 [facility] Comment:INTERNATIONAL NORMAL IZED RATIO (INR) [...] 5:49 PM EDT 02/23/2023 5:53 PM EDT [facility] External Provider LAB BLO OD ORDERABLES Final Result Performing Organization Address [facility] Co de Phone Number [facility] [address] [place] [address] [phone] * HCG, Qualitative, Urine (02/23/2023 5:49 PM EDT) Urine NEGATIVE NEGATIVE [facility] Comment:This test was develo ped to detect early . Falsenegative results may occur after the 5th - 7th week ofpregnancy when using this test method. If clinicallyindicated, consider a serum hCG. 02/23/2023 5:49 PM EDT 02/23/2023 5:53 PM EDT [facility] External Provider LAB URI NE ORDERABLES Final Result Performing Organization Address [facility] de Phone Number [facility] [address] [place] [phone] * (ABNORMAL) Urinalysis w/reflex microscopic (02/23/2023 5:49 PM EDT) Color Urine Yellow [facility] Appearance Urine Clear [facility] PH 5.5 5.0 - 9.0 [facility] Glucose Urine UA Negative Negative mg/dL [facility] Urine Blood Negative Negative [facility] Specific [place] - Urine >=1.030(H) 1.005 - 1.025 [facility] Urine Protein Negative Neg-Trace mg/dL [facility] Urine Ketones Negative Negative mg/dL [facility] Nitrite Urine Negative Negative [facility] Leukocyte Esterase Urine Negative Negative [facility] 02/23/2023 5:49 PM EDT 02/23/2023 5:53 PM EDT Narrative [facility] - 02/23/2023 5:57 PM EDT 1745Urine, Clean Catch us [facility] External Provider LAB URI NE ORDERABLES Final Result [facility] [address] [place] [address] [phone] documented in this encounter Visit Diagnoses Not on filedocumented in this encounter Care Teams Fireworks Display Specialist Relationship Specialty Start Date End Date Rosey Rojas FNP [address] [place] [address] PCP - General Family Medicine 03/31/22 08/23/23 Miya Parker NP [address] [place] [address] PCP - General Family Medicine 08/24/23 10/19/23 Oliverio Quinn MD [address] [place] [phone] PCP - General Internal Medicine 04/14/25 documented as of this encounter
== END 2025-05-01 13:34 | disposition home or self-care (01) ==
LOC: HO.US 13:33
PROVIDERS: Visit Provider Advanced Practice Midwife
DX: T83.39XA Other mechanical complication of intrauterine contraceptive device, initial encounter (principal)
CPT/HCPCS: 76830; 76856

== ENCOUNTER → 2025-05-01 13:37 | Outpatient (BNV) | payer SELFPAY | PROVIDERS: Visit Provider Radiology Diagnostic Radiology | DX: Z97.5 Presence of (intrauterine) contraceptive device (principal) | CPT/HCPCS: 76830; 76856 ==

== ENCOUNTER 2025-06-14 10:17 | Outpatient (REF) | payer MEDICAID, OTHER, SELFPAY ==
--- OUTSIDE RECORDS SUMMARY | 2025-06-09 10:15 | XMS_ITS | Encounter Summary ---
Author Organization [employer] Address [address] [facility] [address]t [place] [address] Care Team Providers Care Metal Door Assembler Name Role Phone Oliverio Quinn MD Primary Care Provider [phone] Reason for Visit * Reason Comments Dental Exam Encounter Details Date Type Department Care Team ([facility] st Contact Info) Description 06/09/2025 10:15 AM EST Office Visit [facility] ADULT DENTAL [address] [place] [address] Emily Arzate, DDS [address] [place], [place] [phone] Dental caries (Primary Dx); Encounter for dental examination; Dental calculus; Periodontal disease; Swelling of gingiva; Bleeding gums; Dental plaque Social History Tobacco Use Types Packs/Day Years [...] the past 12 months, has t he [employer], gas, oil or water [employer] threatened to shut off services in your [...] AM EDT documented as of this encounter Progress Notes * Emily Arzate DDS - 06/09/2025 10:15 AM EST Dental procedures in this visit D0150 - COMPREHENSIVE ORAL EVALUATION - NEW OR ESTABLISHED PATIENT (Completed) Service provider: Emily Arzate DDS Billing provider: Emily Arzate DDS D0210 - INTRAORAL - COMPLETE SERIES OF RADIOGRAPHIC IMAGES (Completed) Service provider: Emily Arzate DDS Billing provider: Emily Arzate DDS D9450 - CASE PRESENTATION, DETAILED AND EXTENSIVE TREATMENT PLANNING (Completed) Service provider: Emily Arzate DDS Billing provider: Emily Arzate DDS Patient ID: Jennifer Connolly is a 25 y.o. female. Time Out: Timeout Date: 06/09/25, Timeout Time: 1028 (Verified Name and . Exam) Location: [facility] Tooth: Maxilla and Mandible Procedure: Exam and X-rays Verified the above with patient, fast food sales assistant, and provider. Confirmed via patient's chart, intraorally and by radiographs. Turkey Pinner: not applicable Chief Complaint Patient presents with Dental Exam Medical Hx: Vitals: There were no vitals taken for this visit. Medical History[1] Medications: Encounter Medications[2] Objective HPI Soft Tissue Exam No findings documented this visit Head and Neck Exam: Lymph Nodes, Lips, Palate, Buccal Mucosa, Floor of Mouth, Tongue, Tonsils, Alveolar Ridges, Oropharynx, Salivary Ducts, and Vestibules - no significant findings observed today OCS: negative Dental Exam Radiographic Interpretation: Associated radiographs for today's visit were reviewed and finding(s) were discussed with the patient. Findings include: caries; calculus, plaque, bleeding gums; swollen gums; bone loss, poor OH Hard Tissue Exam: Decay noted - see charting and treatment plan Reference tooth chart for additional findings. Oral Cancer Risk: Low Risk Oral Hygiene Instructions: [place] two times daily, modified winter technique, Floss daily, Soft bristle toothbrush, [place] Tongue Caries Risk Assessment: Medium- one risk factor Assessment/Plan PAD and perio evaluation SRPs antione Patient tolerated procedure well, all questions answered and expressed understanding. Dismissed in good condition. NV: antione [employer] Distributor: Annalise Briggs Dentist: Emily Arzate DDS [1] Past Medical History: Diagnosis Date History of shoulder dystocia in prior , currently 07/01/2022 44 second dystocia, delivered after [facility], suprapubic, delivery of posterior arm Discussed at OB intake She is considering options--08/11/2022: patient requests PCS. Discussed risks of SD compared to risks of CS with increased risk of bleeding and infection with CS, decreased risk of injury, she is planning 3-4 children. Discussed small increase of acreta with each subsequent CS [2] Outpatient Encounter Medications as of 06/09/2025 Medication Sig Dispense Refill albuterol 108 (90 Base) MCG/ACT inhaler Inhale 2 puffs every 6 (six) hours if needed for wheezing. 18 g 0 [] chlorhexidine (Peridex) 0.12 % solution Use 15 mL in the mouth or throat if needed (for mouthwash 15 ml for 30 seconds, swish and spit) for up to 14 days. 473 mL 0 chlorhexidine (Peridex) 0.12 % solution Use 15 mL in the mouth or throat if needed (for mouthwash 15 ml for 30 seconds, swish and spit) for up to 14 days. 473 mL 0 fluticasone (Flonase) 50 MCG/ACT nasal spray Administer 1-2 sprays into each nostril Once per day. Shake gently. Before first use, prime pump. After use, clean tip and replace cap. 16 g 0 phentermine 15 MG capsule Take 1 capsule (15 mg) by mouth before breakfast. 30 capsule 0 pyridoxine (Vitamin B-6) 25 MG tablet one pill 3 times a day as needed for nausea sodium chloride ([place] Nasal [place]) 0.65 % nasal spray Administer 1 spray into each nostril if needed for congestion. 30 mL 0 topiramate (Topamax) 25 MG tablet Take 1 tablet (25 mg) by mouth Once per day. 30 tablet 11 ulipristal (Amanda) 30 mg tablet Take one tablet by mouth up to five days after sex. Do not use more than once per menstrual cycle. If repeat dose is needed in same cycle, please contact prescriber. 1 tablet 11 [DISCONTINUED] acetaminophen (Tylenol 8 Hour) 650 MG ER tablet Take 1 tablet (650 mg) by mouth every 8 (eight) hours if needed for moderate pain for up to 10 days. Do not crush, chew, or split. 15 tablet 0 [DISCONTINUED] amoxicillin (Amoxil) 500 MG capsule Take 1 capsule (500 mg) by mouth every 8 (eight)hours for 7 days. 21 capsule 0 [DISCONTINUED] ibuprofen 800 MG tablet Take 1 tablet (800 mg) by mouth every 8 (eight) hours if needed for mild pain for up to 10 days. 15 tablet 0 No facility-administered encounter medications on file as of 06/09/2025. documented in this encounter Plan of Treatment Upcoming Encounters Date Type Department Care Team (Late st Contact Info) Description 07/02/2025 2:30 PM EST Office Visit [facility] ADULT DENTAL [address] [place] [address] Emily Arzate DDS [address] [place] [address] 07/08/2025 2:45 PM EST Office Visit [facility] MED & PEDS [address] [place], [place] [phone] Oliverio Quinn MD [address] [place], [place] [phone] Scheduled Orders Name Type Priority Associated Diagnoses Orde r Schedule 3 MO 3 MO RESIN-BASED COMPOSITE - 2 SURF, POSTERIOR Dental Routine [address] arting 06/09/2025 documented as of this encounter Procedures Procedure Name Priority Date/Time Associated Diagnosis Comments INTRAORAL - COMPLETE SERIES OF RADIOGRAPHIC IMAGES Routine 06/09/2025 10:15 AM EST COMPREHENSIVE ORAL EVALUATION - NEW OR ESTABLISHED PATIENT Routine 06/09/2025 10:15 AM EST CASE PRESENTATION, DETAILED AND EXTENSIVE TREATMENT PLANNING Routine 06/09/2025 10:15 AM EST 5 DO COMPOSITE FILLING Routine 12:00 AM EST 4 MO COMPOSITE FILLING Routine 12:00 AM EST 3 O COMPOSITE FILLING Routine 06/09/2025 12:00 AM EST 30 O COMPOSITE FILLING Routine 12:00 AM EST 31 O COMPOSITE FILLING Routine 12:00 AM EST 2 O COMPOSITE FILLING Routine 06/09/2025 12:00 AM EST 18 O AMALGAM FILLING Routine 06/09/2025 12:00 AM EST 14 MO AMALGAM FILLING Routine 06/09/2025 12:00 AM EST 20 DO AMALGAM FILLING Routine 06/09/2025 12:00 AM EST 19 MO AMALGAM FILLING Routine 06/09/2025 12:00 AM EST documented in this encounter Visit Diagnoses Diagnosis Dental caries- Primary Unspecified dental caries Encounter for dental examination Dental calculus Accretions on teeth Periodontal disease Unspecified gingival and periodontal disease Swelling of gingiva Bleeding gums Other specified periodontal diseases Dental plaque Accretions on teeth documented in this encounter Care Teams Metal Door Assembler Relationship Specialty Start Date End Date Oliverio Quinn MD [address] [place] [phone] PCP - General Internal Medicine 04/14/25 documented as of this encounter
--- OUTSIDE RECORDS SUMMARY | 2025-06-12 13:30 | XMS_ITS | Encounter Summary ---
Author Organization [employer] Address [address] [facility] 7t [place] [address] Care Team Providers Care Otr Driver Name Role Phone Oliverio Quinn MD Primary Care Provider [phone] Reason for Visit * Reason Comments Routine Cleaning Dental Exam Encounter Details Date Type Department Care Team (Late st Contact Info) Description 06/12/2025 1:30 PM EST Office Visit [facility] ADULT DENTAL [address] [place], [place] [phone] Marisol Martin Dental calculus (Primary Dx); Subgingival dental calculus; Bleeding gums Social History Tobacco Use Types Packs/Day Years [...] Sign Reading Time Taken Comments Blood Pressure 110/72 06/12/2025 1:46 PM EST Pulse - - Temperature - - Respiratory Rate - - Oxygen Saturation - - Inhaled Oxygen Concentration - - Weight - - Height - - Body Mass Index - - documented in this encounter Progress Notes * Marisol Martin - 06/12/2025 1:30 PM EST Patient ID: Jennifer Connolly is a 25 y.o. female. Time Out: Timeout Date: 06/12/25, Timeout Time: 1345 (Dental Prophy Adult) Location: [facility] Tooth: Maxilla and Mandible Procedure: Prophylaxis Verified the above with patient, cook's assistant, and provider. Confirmed via patient's chart, intraorally and by radiographs. Research Editor: not applicable Medical Hx: Vitals: Blood pressure 110/72. Medications, Med Hx reviewed with patient and updated in chart. Treatment Provided Dental procedures in this visit D1110 - PROPHYLAXIS - ADULT Full Instruments Used: Ultrasonic Scalers and Floss Fluoride: N/A Oral Cancer Screening: No lesions Head/Neck Exam: No Lesions Calculus: Heavy, Generalized, and Subgingival Plaque: Moderate and Generalized Stain: Moderate and Generalized Bleeding: Heavy and Generalized Gingiva: Perio Charting Completed, Bleeding on probing, Edematous, and Erythematous OH: Poor Perio Chart: Completed Patient presents with periodontal disease. Calculus present Subgingivally, Supragingivally, Generalized, and Heavy that can be seen radiographically. BOP: Generalized and Heavy Exudate: Not Present Mobility: 0 Generalized Probing Depths Range: 4 to 6 mm Recession: 0 ranging from 0 to 0 mm. Gingiva: Inflamed and Erythematous Bone loss visible radiographically: Generalized Pre Authorization requested for SRP. SRP treatment needed to promote gingival health, arrest disease progression of periodontal disease and prevent tooth loss. Provider: Marisol Martin Oral hygiene instructions provided to patient including brushing technique and flossing. Recommendations: [place] two times daily, modified winter technique, Floss daily, Electric toothbrush, Soft bristle toothbrush, [place] Tongue, Anti-sensitivity toothpaste Recall Frequency: 6 mo NV: Upon SRP Approval Hygienist: Marisol Martin RDH * Emily Arzate DDS - 06/12/2025 1:30 PM EST I have reviewed the documentation and dental procedures made by the rendering provider, Marisol Martin RDH, and approve their chart entries for this visit. Emily Arzate DDS documented in this encounter Plan of Treatment Upcoming Encounters Date Type Department Care Team (Late st Contact Info) Description 07/02/2025 2:30 PM EST Office Visit [facility] ADULT DENTAL [address] [place] [address] Emily Arzate DDS [address] [place] [address] 07/08/2025 2:45 PM EST Office Visit [facility] [address] [place] [address] Oliverio Quinn MD [address] [place] [address] Scheduled Orders Name Type Priority Associated Diagnoses Orde r Schedule UL UL PERIODONTAL SCALING AND ROOT PLANING - 4 OR MORE TEETH PER QUADRANT Dental Routine [address] arting 06/12/2025 LL LL PERIODONTAL SCALING AND ROOT PLANING - 4 OR MORE TEETH PER QUADRANT Dental Routine [address] arting 06/12/2025 UR UR PERIODONTAL SCALING AND ROOT PLANING - 4 OR MORE TEETH PER QUADRANT Dental Routine [address] arting 06/12/2025 LR LR PERIODONTAL SCALING AND ROOT PLANING - 4 OR MORE TEETH PER QUADRANT Dental Routine [address] arting 06/12/2025 documented as of this encounter Procedures Procedure Name Priority Date/Time Associated Diagnosis Comments SCALING IN PRESENCE OF MOD-SEVERE GING INFL - FULL MOUTH, AFTER ORAL EVAL Routine 06/12/2025 1:30 PM EST Dental calculus Subgingival dental calculus Bleeding gums ORAL HYGIENE INSTRUCTIONS Routine 2024 1:30 PM EST Dental calculus Subgingival dental calculus Bleeding gums FULL MOUTH DEBRIDEMENT TO ENABLE A COMPREHENSIVE ORAL EVALUATION AND DIAGNOSIS ON A SUBSEQUENT VISIT Routine 06/12/2025 1:30 PM EST Dental calculus Subgingival dental calculus Bleeding gums CASE PRESENTATION, DETAILED AND EXTENSIVE TREATMENT PLANNING Routine 06/12/2025 1:30 PM EST documented in this encounter Visit Diagnoses Diagnosis Dental calculus- Primary Accretions on teeth Subgingival dental calculus Accretions on teeth Bleeding gums Other specified periodontal diseases documented in this encounter Care Teams Otr Driver Relationship Specialty Start Date End Date Oliverio Quinn MD [address] [place] [phone] PCP - General Internal Medicine 04/14/25 documented as of this encounter
--- NOTE | ~2025-06-14 | CT_ITS ---
CLINICAL HISTORY: Headache during sexual activity CT head without contrast Comparison: None provided Findings: No intra-axial mass, midline shift, hydrocephalus, or acute hemorrhage. Mild partial left frontal sinus opacification. Otherwise clear paranasal sinuses, mastoid air cells, and middle ear cavities. The orbits are within normal limits. There is no acute fracture. IMPRESSION: Unremarkable brain. This document has been electronically signed by: Casie Veloz MD on 06/16/2025 10:23:41
--- OUTSIDE RECORDS SUMMARY | 2025-06-14 10:19 | XMS_ITS | Clinical Summary ---
Author Organization [employer] Address [address] [facility] [address] [place] [address] Care Team Providers Care Client Services Analyst Name Role Phone Oliverio Quinn MD Primary Care Provider [phone] Allergies No known active allergies Medications pyridoxine [...] tablet 11 04/10/20 25 Active sodium chloride ([place] Nasal [place]) 0.65 % nasal sprayIndication s:Subacute cough Administer 1 spray into each nostril if needed for congestion. 30 mL 05/02/20 25 026 Active fluticasone (Flonase) 50 MCG/ACT nasal sprayIndication s:Subacute cough Administer 1-2 sprays into each nostril Once per day. Shake gently. Before first use, prime pump. After use, clean tip and replace cap. 16 g 05/02/20 25 026 Active albuterol 108 (90 Base) MCG/ACT inhalerIndicati ons:Subacute cough Inhale 2 puffs every 6 (six) hours if needed for wheezing. 18 g 05/02/20 25 026 Active phentermine 15 MG capsuleIndicati ons:Class 1 obesity due to excess calories without serious comorbidity with body mass index (BMI) of 33.0 to 33.9 in adult Take 1 capsule (15 mg) by mouth before breakfast. 30 capsule 06/03/20 25 026 Active topiramate (Topamax) 25 MG tabletIndicatio ns:Class 1 obesity due to excess calories without serious comorbidity with body mass index (BMI) of 33.0 to 33.9 in adult Take 1 tablet (25 mg) by mouth Once per day. 30 tablet 11 06/03/20 25 026 Active chlorhexidine (Peridex) 0.12 % solution Use 15 mL in the mouth or throat if needed (for mouthwash 15 ml for 30 seconds, swish and spit) for up to 14 days. 473 mL 5 11:32 AM EST 06/09/20 026 Active chlorhexidine (Peridex) 0.12 % solution Use 15 mL in the mouth or throat if needed (for mouthwash 15 ml for 30 seconds, swish and spit) for up to 14 days. 473 mL 05/06/20 25 025 chlorhexidine (Peridex) 0.12 % solution Use 15 mL in the mouth or throat if needed (for mouthwash 15 ml for 30 seconds, swish and spit) for up to 14 days. 473 mL 05/21/20 25 025 amoxicillin (Amoxil) 500 MG capsule Take 1 capsule (500 mg) by mouth every 8 (eight) hours for 7 days. 21 capsule 06/09/20 25 025 Discontinued ibuprofen 800 MG tablet Take 1 tablet (800 mg) by mouth every 8 (eight) hours if needed for mild pain for up to 10 days. 15 tablet 06/09/20 25 025 Discontinued acetaminophen (Tylenol 8 Hour) 650 MG ER tablet Take 1 tablet (650 mg) by mouth every 8 (eight) hours if needed for moderate pain for up to 10 days. Do not crush, chew, or split. 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 ADULT DENTAL [address] [place] [address] Marisol Martin Dental calculus (Primary Dx); Subgingival dental calculus; Bleeding gums 06/09/2025 10:15 AM EST Office Visit [facility] ADULT DENTAL [address] [place] [address] Singer-Andrews, Emily, DDS Dental caries (Primary Dx); Encounter for dental examination; Dental calculus; Periodontal disease; Swelling of gingiva; Bleeding gums; Dental plaque 06/03/[address] [facility] MED & PEDS [address] [place] [address] Oliverio Quinn MD Class 1 obesity due to excess calories without serious comorbidity with body mass index (BMI) of 33.0 to 33.9 in adult (Primary Dx) 06/02/2025 1:00 PM EST Office Visit [facility] MED & PEDS [address] [place] [address] Oliverio Quinn MD Vulvar lesion (Primary Dx); Coital headache; Class 1 obesity due to excess calories without serious comorbidity with body mass index (BMI) of 33.0 to 33.9 in adult 06/02/[address] [facility] [address] [facility] [place] [address] Oliverio Quinn MD Medication Question 06/02/2025 Travel 05/21/[address] [facility] ADULT DENTAL [address] [facility] [facility] [address] Singer-Emily Andrews, DDS 05/16/2025 Patient Outreach [facility] MED & PEDS [address] [place] [address] Oliverio Quinn MD Pre-visit Planning ([facility] unable to reach [facility]) 05/06/[address] [facility] ADULT DENTAL [address] [facility] [facility] [address] Singer-AndrewsEmily, DDS 05/06/[address] [facility] AD[facility] D[facility] [address] [facility] [facility] [address] Singer-AndrewsEmily cosme, DDS DR ANDREWS 05/05/2025 9:30 AM EST Office Visit [facility] AD[facility] DENTAL [address] [facility] [facility] [address] Singer-AndrewsEmily cosme, DDS Full coverage crown needed for root canal-treated tooth (Primary Dx) 05/05/[address] [facility] MEDICINE [address] [place] [address] Cale Perez CNM Other mechanical complication of intrauterine contraceptive device, initial encounter (Primary Dx) 05/05/2025 Travel 05/02/2025 Telephone [facility] MED & PED[facility] [address] [facility] [place] [address] Oliverio Quinn MD Appointment Request 05/02/[address] [facility] WALK-IN CENTER [address] [place] [phone] Lisa Landaverde, PRINCIPAL PLANNER 05/01/2025 2:40 PM EST Office Visit [facility] WALK-IN [address] [address] Lisa Landaverde, PRINCIPAL PLANNER Subacute cough (Primary Dx); Upper respiratory tract infection, unspecified type 05/01/2025 Travel 04/18/2025 Results Follow-Up [address] [address] Cale Perez CNM Bacterial Vaginosis 04/17/2025 9:30 AM EDT Office Visit [facility] ADULT DENTAL [address] [place] [phone] Emily Arzate DDS Full coverage crown needed for root canal-treated tooth (Primary Dx) 04/15/2025 Orders Only [address] [address] Cale Perez CNM Vaginal odor (Primary Dx) 04/15/2025 Results Follow-Up [address] [address] Cale Perez CNM Pap Smear, POCT , urine manually resulted, US Pelvis Transvaginal 04/14/2025 4:00 PM EDT Office Visit [facility] MED & PEDS [address] [place], [place] [phone] Oliverio Quinn MD Subacute vaginitis (Primary Dx); Encounter for immunization; Acute cough; Dietary counseling; Exercise counseling; Class 1 obesity due to excess calories without serious comorbidity with body mass index (BMI) of 33.0 to 33.9 in adult; Coital headache 04/14/2025 Travel 04/11/2025 Telephone [facility] MED & PEDS [address] [place] [address] Esther Nelosn MA Chart Prep 04/10/2025 11:00 AM EDT Procedure Visit [address] [address] Cale Perez CNM Other mechanical complication of intrauterine contraceptive device, initial encounter (Primary Dx); Cervical cancer screening; Abnormal uterine bleeding; Vaginal odor 04/10/2025 Travel 04/09/[address] [facility] MED[facility] [address] [place] [phone] Cale Perez CNM chart prep 03/27/2025 1:30 PM EDT Office Visit [facility] ADULT DENTAL [address] [place] [phone] Singer-AndrewsKbEmily, DDS External resorption of root of tooth (Primary Dx) 03/27/2025 Travel 03/25/2025 1:00 PM EDT Office Visit [facility] ADULT DENTAL [address] [place] [phone] Singer-AndrewsKbEmily, DDS External resorption of root of tooth (Primary Dx); Symptomatic periapical periodontitis 03/20/2025 Results Follow-Up [facility] [address] [place], [place] [phone] Cassy Arellano, ALYSIA Bacterial Vaginosis Panel, Chlamydia/N. Gonorrhoeae RNA, TMA, Vaginal, POCT Urine 03/17/2025 6:40 PM EDT Office Visit [facility] WALK-IN CENTER [address] [place] [phone] Oliverio Quinn MD Subacute vaginitis (Primary Dx); [...] Moderna Covid-19 Vaccine 6+ Bivalent 08/22/2022 Novel [id number], all formulations 05/12/2009 Tdap 10/10/2022,06/17/2021,08/10/2010 Varicella 05/25/2008 [...] Pressure 110/72 06/12/2025 1:46 PM EST Pulse 33 06/02/2025 1:09 PM EST Temperature 36.8 C (98.2 F) 06/02/2025 1:09 PM EST Respiratory Rate 20 06/02/2025 1:09 PM EST Oxygen Saturation 98% 06/02/2025 1:09 PM EST Inhaled Oxygen Concentration - - Weight 77.1 kg (170 lb) 06/02/2025 1:09 PM EST Height 153.7 cm (5' 0.5 ) 06/02/2025 1:09 PM EST Body Mass Index 32.65 06/02/2025 1:09 PM EST Plan of Treatment Upcoming Encounters Date Type Department Care Team (Late st Contact Info) Description 07/02/2025 2:30 PM EST Office Visit [facility] ADULT DENTAL [address] [place] [address] Emily Arzate, DDS [address] [place] [address] 07/08/2025 2:45 PM EST Office Visit [facility] PED[facility] [address] [place] [address] Oliverio Quinn MD [address] [place] [address] Health Maintenance Due Date Last Done Comments Dental Prophylaxis 2000 Lipid Panel 1999 SDOH Screening 01/03/2024 01/02/2023 COVID-19 Vaccine ( season) 2025 08/22/2022, 11/27/2020, 10/30/2020 Dental Oral Exam 12/09/2025 06/09/2025 Alcohol/Substance Use Screening 04/10/2026 04/10/2025 Depression Screening 04/10/2026 04/10/2025, 04/10/20 25 Disability Screening 04/10/2026 04/10/2025 Family Planning (PISQ) 04/10/2026 04/10/2025 Dental X-Ray: Bitewings 06/10/2026 06/09/2025, 03/25 Tobacco Screening 06/12/2026 06/12/2025 Pap Smear 04/10/2028 04/10/2025 Dental X-Ray: Full Mouth 06/10/2028 06/09/2025 DTaP/Tdap/Td Vaccines (8 - Td or Tdap) [...] TREATMENT PLANNING Routine 06/12/2025 1:30 PM EST ORAL HYGIENE INSTRUCTIONS Routine 06/12/2025 1:30 PM EST Dental calculus Subgingival dental calculus Bleeding gums FULL MOUTH DEBRIDEMENT TO ENABLE A COMPREHENSIVE ORAL EVALUATION AND DIAGNOSIS ON A SUBSEQUENT VISIT Routine 06/12/2025 1:30 PM EST Dental calculus Subgingival dental calculus Bleeding gums SCALING IN PRESENCE OF MOD-SEVERE GING INFL - FULL MOUTH, AFTER ORAL EVAL Routine 06/12/2025 1:30 PM EST Dental calculus Subgingival dental calculus Bleeding gums CASE PRESENTATION, DETAILED AND EXTENSIVE TREATMENT PLANNING Routine 06/09/2025 10:15 AM EST INTRAORAL - COMPLETE SERIES OF RADIOGRAPHIC IMAGES Routine 06/09/2025 10:15 AM EST COMPREHENSIVE ORAL EVALUATION - NEW OR ESTABLISHED PATIENT Routine 06/09/2025 10:15 AM EST 18 O AMALGAM FILLING Routine 06/09/2025 12:00 AM EST 14 MO AMALGAM FILLING Routine 06/09/2025 12:00 AM EST 20 DO AMALGAM FILLING Routine 06/09/2025 12:00 AM EST 19 MO AMALGAM FILLING Routine 06/09/2025 12:00 AM EST 5 DO COMPOSITE FILLING Routine 06/09/2025 12:00 AM EST 4 MO COMPOSITE FILLING Routine 06/09/2025 12:00 AM EST 3 O COMPOSITE FILLING Routine 06/09/2025 12:00 AM EST 30 O COMPOSITE FILLING Routine 06/09/2025 12:00 AM EST 31 O COMPOSITE FILLING Routine 06/09/2025 12:00 AM EST 2 O COMPOSITE FILLING Routine 06/09/2025 12:00 AM EST CASE PRESENTATION, DETAILED AND EXTENSIVE TREATMENT PLANNING Routine 05/05/2025 9:30 AM EST Full coverage crown needed for root canal-treated tooth INTRAORAL - PERIAPICAL FIRST RADIOGRAPHIC IMAGE Routine 05/05/2025 9:30 AM EST Full coverage crown needed for root canal-treated tooth 13 CROWN - PORCELAIN/CERAMIC Routine 05/05/2025 9:30 AM EST Full coverage crown needed for root canal-treated tooth POCT INFLUENZA B (ID NOW RAPID MOLECULAR) Routine 05/01/2025 3:00 PM EST Subacute cough Upper respiratory tract infection, unspecified type POCT INFLUENZA A (ID NOW RAPID MOLECULAR) Routine 05/01/2025 3:00 PM EST Subacute cough Upper respiratory tract infection, unspecified type POCT RAPID COVID ANTIGEN Routine 05/01/2025 2:48 PM EST Subacute cough Upper respiratory tract infection, unspecified type US PELVIS TRANSVAGINAL Urgent 05/01/2025 1:40 PM [...] 04/10/2025 11:33 AM EDT Abnormal uterine bleeding OR REMOVAL INTRAUTERINE DEVICE IUD Routine 04/10/2025 11:00 [...] Rapid Molecular) (05/01/2025 3:00 PM EST) Pathologist [facility] Influenza B Negative Negative, Indeterminate [facility] Swab 05/01/2025 3:00 PM EST us Lisa Calderono PRINCIPAL PLANNER POINT OF CARE TEST ENTER/EDIT ORDERABLES Final Result [facility] [address] [place] [phone] * Influenza A (ID NOW Rapid Molecular) (05/01/2025 3:00 PM EST) Pathologist [facility] Influenza A Negative Negative, Indeterminate [facility] Swab 05/01/2025 3:00 PM EST us Lisa Okhipo PRINCIPAL PLANNER POINT OF CARE TEST ENTER/EDIT ORDERABLES Final Result [facility] [address] [place] [phone] * POCT Rapid COVID Ag (05/01/2025 2:48 PM EST) Rapid COVID Ag Negative Swab 05/01/2025 2:48 PM EST us Lisa Okhipo PRINCIPAL PLANNER POINT OF CARE TEST ENTER/EDIT ORDERABLES Final Result * US Pelvis Transvaginal (05/01/2025 1:40 PM EST) Anatomical Region Laterality Modality Pelvis Ultrasound 05/01/2025 1:40 PM EST Narrative 05/01/2025 2:22 PM EST [place] [address] Ultrasound Report Signed with Addenda Patient: Jennifer Soni MR#: [id number] : 2000 Acct:[id number] Age/Sex: 25 / F ADM Date: 05/01/25 Loc: HO. Attending Dr: Cale Perez CNM Ordering Physician: CALE PREEZ CNM Date of Service: 05/01/25 Procedure(s): US pelvic and transvaginal Accession Number(s): [id number] cc: CALE PEREZ CNM Reason for Exam: [...] by: Ayo Raymundo MD 05/01/2025 02:19 PM [facility] Dictated By: Ayo Raymundo MD Signed By: <Electronically signed by Ayo Raymundo MD in OV> 05/01/25 1419 DD/ 1340 TD/TT: 05/01/25 1356 Airplane Cleaner: Procedure Note Donotuseinterpreter, Image - 05/01/[address] [address] Ultrasound Report Signed with Addenda Patient: Genny Soni#: [id number] : 2000Acct:[id number] Age/Sex: 25 / FADM Date: 05/01/25 Loc: HO.US Attending Dr: Cale Perez CNM Ordering Physician: CALE PEREZ CNM Date of Service: 05/01/25 Procedure(s): US pelvic and transvaginal Accession Number(s): [id number] cc: PIPEOSIELCALE CNM Reason for Exam: IUD strings not [...] 05/01/25 1419 DD/ 1340 TD/TT: 05/01/25 1356 Airplane Cleaner: Cale Perez CNM IMG US PROCEDURES Edited Result - Final * Bacterial Vaginosis (04/17/2025 11:05 AM EDT) Only the most recent of2 resultswithin the time period is included. TRICHOMONAS VAGINALIS DETECTION BY PCR NOT DETECTED Not Detect [facility] BACTERIAL VAGINOSIS DETECTION BY PCR NEGATIVE Negative [facility] Comment:The BV organism targ ets [...] DETECTION BY PCR NOT DETECTED Not Detect [facility] Francisca glab krusei PCR NOT DETECTED Not Detect [facility] 04/17/2025 11:0 5 AM EDT 04/17/2025 5:28 PM EDT Cale Perez CNM LAB MICROBIOLOGY - GENERA L ORDERABLES Final Result [facility] [address] [place] [phone] * Pap Smear (04/10/2025 12:00 PM EDT) Swab Cervix uteri structure / Unknown 04/10/2025 12:00 PM EDT 04/11/2025 6:00 AM EDT Narrative [facility] - 04/15/2025 10:58 AM EDT ----- ------- Name: Jennifer Soni Age/Sex: 25/F : 2000 Unit#: [id number] Attend Dr: CALE PEREZ [facility] Re04/10/25 Status: DEP REF [facility] Disch: ----- ------- SPEC : [id number] RECD: 04/11/25 STATUS: ALEXANDER CHRISTINA NUM: [id number] FLORENCIO: 04/10/25-[address]: CALE PEREZ ENTERED: 04/11/25 SP TYPE: Pap Smr ANCA DR: ORDERED: Pap Smear Interpretation Satisfactory for evaluation. Negative for intraepithelial lesion or malignancy. Clinical Information LMP: Previous PAP test: Unk Other surgery: Other history: Material Received ThinPrep-Cervical ----- ------- Signed (signature on file) OSWALD Greer (ASCP) 04/15/25 1058 ----- ------- END OF REPORT Cale Perez CNM LAB CYTOLOGY ORDERABLES F inal Result [facility] [address] [place] [phone] * POCT fern test, vaginal fluid [...] Media Lot # [id number] Lot# Expiration Date [id number] Urine 04/10/2025 11:3 3 AM EDT Cale Perez CNM POINT OF CARE TEST ENTER/ EDIT ORDERABLES Final Result * OR REMOVAL INTRAUTERINE DEVICE IUD (04/10/2025 11:00 AM EDT) Narrative Cale Perez CNM - 04/10/2025 11:00 AM EDT Cale Perez CNM 04/10/2025 11:54 AM IUD Management Performed by: Cale Perez CNM Authorized by: Cale Perez CNM Procedure: IUD removal Consent obtained by patient, parent, or legal power of environmental attorney - including discussion of procedure risks [...] EDT) CT PCR NOT DETECTED Not Detect. [facility] Comment:A not detected test result [...] psychologicalconsequences. NG PCR NOT DETECTED Not Detect. [facility] Comment:A not detected test result [...] LAB MICROBIOLOGY - GENERAL ORDERABLES Final Result Performing Organization Address [facility] Co de Phone Number [facility] [address] [place] [address] [phone] * Hepatitis C Antibody (02/11/2021 11:15 AM EDT) Pathologist [facility] Hepatitis C Antibody Nonreactive Nonreactive [facility] Comment: Antibodies to HCV not detected; does not exclude early acute HCV infection. HIV AB/AG Nonreactive Nonreactive [facility] Comment: HIV-1 p24 Ag and/or [...] of detection of this assay. The Salgado Gis Professor HIV Ag/Ab Combo assay result and supplemental assay results should be interpreted in conjunction with the patient's clinical presentation, history and other laboratory results. If the results are inconsistent with clinical evidence, additional testing is suggested to confirm the result. Hepatitis B Surface Antigen Negative Negative [facility] 02/11/2021 11:1 5 AM EDT us Pennie Taveras HISTORICAL/NON ORDERABLE LABS Fi nal Result Performing Organization Address City/[facility]/ZIP Co de Phone Number [facility] [address] from Last 3 Months or Most Recently Relevant to Health Maintenance Insurance [place] [employer] LIMITED ADULT DENTAL - HSN FULL (MEDICAID) Care Teams Client Services Analyst Relationship Specialty Start Date End Date Oliverio Quinn MD [address] [place] [phone] PCP - General Internal Medicine 04/14/25
--- OUTSIDE RECORDS SUMMARY | 2025-06-14 10:19 | XMS_ITS | Clinical Summary ---
Author Organization [facility] Address [address] [place] [phone] Phone Care Team Providers Care Glass Installer Name Role Phone Unavailable Primary Care Provider Unavailabl e Allergies No known active allergies Medications No known medications Active Problems Problem Noted Date Diagnosed Date Pediatric body mass index (B OH) of 85th percentile to less than 95th [...] complete this topic Procedures * Due to [place] [employer] law, this organization might not be sharing sensitive test results. Procedure Name Priority Date/Time Associated Diagnosis Comments CHLAMYDIA TRACHOMATIS RNA TMA, UROGENITAL (REFL) Routine 07/17/2017 10:52 AM EST Well adult exam from Last 3 Months or Most Recently Relevant to Health Maintenance Results * Due to [place] [employer] law, this organization might not be sharing [...]
--- OUTSIDE RECORDS SUMMARY | 2025-06-14 10:19 | XMS_ITS | Clinical Summary ---
Author Organization [facility] Address [address] [place] [address] Care Team Providers Care Campus Recruiting Intern Name Role Phone Oliverio Quinn Primary Care Provider Allergies No known active allergies Medications norelgestromin-e thin.estradioL (ORTHO EVRA) 150-35 mcg/24 hr Apply 1 patch each week for 3 weeks, then remove for 1 week. 3 patch 12 05/14/2025 Active Active Problems Problem Noted Date Diagnosed Date Encounter for IUD removal 05/13/2025 Encounters Date Type Department Care Team Description 05/14/2025 3:00 PM EST Office Visit [facility] Obstetrics and Gynecology [address] [place] [address] Research Pharmacist: Eun Hobbs MD Encounter for IUD removal (Primary Dx) 05/06/2025 Transcribe Orders [facility] Physician Referral Services [address] [place] [address] Alida Velasquez IUD migration, initial encounter (Primary Dx) from Last 3 Months Family History Medical History Relation Name Comments Breast cancer Neg Hx Social History Tobacco Use Types Packs/Day Years Used Date Smoking Tobacco: Never Passive Smoke Exposure: Never Smokeless Tobacco: Never Alcohol Use Standard Drinks/Week Comments Not Currently 0 (1 standard drink = 0.6 oz pur e alcohol) Comments No Sex and Gender Information Value Date Recorded Sex Assigned at Female 05/06/2025 9:41 AM EST Legal Sex Female 9:38 AM EST Gender Identity Female 05/13/2025 4:01 PM EST Sexual Orientation Straight 05/13/2025 4: 01 PM EST Last Filed Vital Signs Vital Sign Reading Time Taken Comments Blood Pressure 94/70 05/14/2025 3:13 PM EST Pulse - - Temperature - - Respiratory Rate - - Oxygen Saturation - - Inhaled Oxygen Concentration - - Weight 78 kg (172 lb) 05/14/2025 3:13 PM EST Height - - Body Mass Index - - Plan of Treatment Health Maintenance Due Date Last Done Comments HIV Screening 1999 Varicella Vaccines (2 of 2 - 2-dose childhood series) 09/09/2008 06/17/2008, 05/25/2008 Alcohol/Substance Use Screening 06/26/2024 Depression Screening and Follow-Up 06/26/2024 Social Drivers of Health Annual Screening 06/26/2024 COVID-19 Vaccine ( season) 2025 08/22/2022, 11/27/2020, 10/30/2020 Pap Smear 04/10/2028 04/10/2025 DTaP,Tdap,and Td Vaccines (8 - Td or Tdap) 10/10/2032 10/10/2022, 06/17/2021, 08/10/2010, Additional history exists Hepatitis B Vaccines Completed 11/18/2008, 06/17/2008, 05/13/2008 HPV Vaccines Completed 10/08/2013, 08/2012, 11/14/2011 Hepatitis C Screening Completed 01/30/2023 Influenza Vaccine Completed 04/14/2025, , 06/17/2021, Additional history exists Pneumococcal Vaccine: Pediatric (0-5 Years) and At-Risk Patients (6-50 Years) Aged Out No longer eligible based on patient's age to complete this topic Procedures * Due to [place] [employer] law, this organization might not be sharing negative HIV tests. Procedure Name Priority Date/Time Associated Diagnosis Comments NE REMOVE INTRAUTERINE DEVICE Routine 05/14/2025 3:00 PM EST Encounter for IUD removal from Last 3 Months Results * Due to [place] state law, this organization might not be sharing negative HIV tests. * NE REMOVE INTRAUTERINE DEVICE (05/14/2025 3:00 PM EST) Eun Meza MD - 05/14/2025 3:00 PM EST Eun Fernandez MD 05/14/2025 3:49 PM IUD Removal Date/Time: 05/14/2025 3:00 PM Performed by: Eun Fernandez MD Authorized by: Eun Fernandez MD Consent Patient identity confirmed: Name and with patient Verbal consent obtained?: Yes Written consent obtained?: Yes Risks and benefits discussed: Yes Consent given by: Patient Patient states understanding of procedure being performed: Yes Patient's understanding of procedure matches consent: Yes Procedure consent matches procedure to be performed: Yes All relevant documents/tests are correctly identified, labeled, and matched to patient: Yes Relevant tests/ Imaging studies available/reviewed: Yes Correct site marked: N/A Required blood products, implants, devices and special equipment available: Yes Immediately prior to the procedure a time out was called: Yes An attending physician was present for the procedure OR the procedure was performed by an Advanced Practice Provider: Yes IUD Removal: IUD Type: Mirena Normal external genitalia.No masses appreciated.: Yes Speculum placed: Yes No vaginal masses appreciated: Yes Cervix without masses: Yes Betadine applied to cervix: Yes Removed successfully with no complications: yes Removed for patient preference: yes Post-procedure: Patient tolerated procedure well: yes Precautions reviewed and patient questions answered: yes Comments: Used alligator forceps and a paracervical block Eun Fernandez MD IN CLINIC/BEDSIDE ORDERABL ES Final Result from Last 3 Months Insurance [facility] HSNO/FREE CARE Care Teams Campus Recruiting Intern Relationship Specialty Start Date End Date Oliverio Quinn [address] [place] [phone] PCP - General Internal Medicine 05/06/25
--- OUTSIDE RECORDS SUMMARY | 2025-06-14 10:19 | XMS_ITS | Encounter Summary ---
Author Organization [employer] Address [address] [facility] 7 [place] [address] Care Team Providers Care Director Of Volunteer Services Name Role Phone Oliverio Quinn MD Primary Care Provider [phone] Reason for Visit * Reason Onset Date Comments Appointment Request 05/02/2025 Encounter Details Date Type Department Care Team ([facility] st Contact Info) Description 05/02/2025 Telephone [facility] CHC MED & PEDS [address] [place], [place] [phone] Oliverio Quinn MD [address] [place] [address] Appointment Request Social History Tobacco Use Types Packs/Day Years [...] encounter Miscellaneous Notes * Telephone Encounter - Cassy Arellano RN - 05/02/2025 3:25 PM EST Pt contacted office to inquire about SHAFTING CLEANER referral and requesting to go to [facility] for SHAFTING CLEANER due to IUD unable to be removed in office. Advised will follow up with CNM for review for referral. * Telephone Encounter - Elisa South - 05/02/2025 3:18 PM EST Tc from pt requesting to schedule apt to have IUD removed Contact pt at [phone] documented in this encounter Plan of Treatment Upcoming Encounters Date Type Department Care Team (Late st Contact Info) Description 07/02/2025 2:30 PM EST Office Visit [facility] ADULT DENTAL [address] [place] [address] Emily Arzate, DDS [address] [place] [address] 07/08/2025 2:45 PM EST Office Visit [facility] CHC MED & PEDS [address] [place] [address] Oliverio Quinn MD [address] [place] [address] documented as of this encounter Visit Diagnoses Not on filedocumented in this encounter Care Teams Director Of Volunteer Services Relationship Specialty Start Date End Date Oliverio Quinn MD [address] [place] [phone] PCP - General Internal Medicine 04/14/25 documented as of this encounter
--- OUTSIDE RECORDS SUMMARY | 2025-06-14 10:19 | XMS_ITS | Encounter Summary ---
Author Organization [employer] Address [address] [facility] 7t [place] [address] Care Team Providers Care Load Tester Name Role Phone Oliverio Quinn MD Primary Care Provider [phone] Encounter Details Date Type Department Care Team ([facility] st Contact Info) Description 05/21/2025 Orders Only [facility] ADULT DENTAL [address] [place] [address] Emily Arzate DDS [address] [place] [address] Social History Tobacco Use Types Packs/Day Years [...] Description 07/02/2025 2:30 PM EST Office Visit [facility] ADULT DENTAL [address] [place] [address] Singer-Andrews, Emily, DDS [address] [place] [address] 07/08/2025 2:45 PM EST Office Visit [facility] CHC MED & PEDS [address] [place] [address] Oliverio Quinn MD [address] [place] [address] documented as of this encounter Visit Diagnoses Not on filedocumented in this encounter Care Teams Load Tester Relationship Specialty Start Date End Date Oliverio Qiunn MD [address] [place] [address] PCP - General Internal Medicine 04/14/25 documented as of this encounter
--- OUTSIDE RECORDS SUMMARY | 2025-06-14 10:19 | XMS_ITS | Encounter Summary ---
Author Organization [employer] Address [address] [facility] 7t [place] [address] Care Team Providers Care Ship'S Officer Name Role Phone Oliverio Quinn MD Primary Care Provider [phone] Reason for Visit * Reason Onset Date Comments DR ANDREWS 05/06/2025 Encounter Details Date Type Department Care Team ([facility] st Contact Info) Description 05/06/2025 Telephone [facility] ADULT DENTAL [address] [place] [address] Emily Arzate, DDS [address] [place], [place] [phone] DR ANDREWS Social History Tobacco Use Types Packs/Day Years [...] encounter Miscellaneous Notes * Telephone Encounter - Rd Olivarez - 05/06/2025 1:13 PM EST Pt is requesting for mouthwash to be sent over to the pharmacy. Please call pt to let herknow script is sent. Thank you documented in this encounter Plan of Treatment Upcoming Encounters Date Type Department Care Team (Late st Contact Info) Description 07/02/2025 2:30 PM EST Office Visit [facility] ADULT DENTAL [address] [place] [address] Singer-Andrews, Emily, DDS [address] [place] [address] 07/08/2025 2:45 PM EST Office Visit [facility] CHC MED & PEDS [address] [place] [address] Oliverio Quinn MD [address] [place] [address] documented as of this encounter Visit Diagnoses Not on filedocumented in this encounter Care Teams Ship'S Officer Relationship Specialty Start Date End Date Oliverio Quinn MD [address] [place] [address] PCP - General Internal Medicine 04/14/25 documented as of this encounter
--- OUTSIDE RECORDS SUMMARY | 2025-06-14 10:19 | XMS_ITS | Encounter Summary ---
Author Organization [facility] Address [address] [place] [address] Phone Care Team Providers Care Sound Technician Supervisor Name Role Phone Elena Chavez MD Primary Care Provider [phone] Encounter Details Date Type Department Care Team (Late st Contact Info) Description 02/01/2017 Conversion Encounter [facility] Pediatric[facility] - [address], [address] [place] [address] Elena Chavez MD [address] [place] [address] Social History Tobacco Use Types Packs/Day Years [...] on filedocumented in this encounter Care Teams Sound Technician Supervisor Relationship Specialty Start Date End Date Elena Chavez MD [address] [place] [address] PCP - General 08/16/16 02/02/21 documented as of this encounter
--- OUTSIDE RECORDS SUMMARY | 2025-06-14 10:20 | XMS_ITS | Encounter Summary ---
Author Organization [employer] Address [address] [facility] 7t [place] [address] Care Team Providers Care Sieve Repairer Name Role Phone Rosey Rojas Primary Care Provider [phone] Miya Parker NP Primary Care Provider [phone] Oliverio Quinn MD Primary Care Provider [phone] Reason for Visit * Reason Onset Date Comments TP Appt required 01/18/2023 Encounter Details Date Type Department Care Team (Late st Contact Info) Description 01/18/2023 Telephone [facility] MEDICINE [address] [place], [place] [phone] Rosey Rojas FNP [address] [place] [address] TP Appt required Social History Tobacco Use [...] PCP Dr. Alberto. Please contact pt at [phone] documented in this encounter Plan of Treatment Upcoming Encounters Date Type Department Care Team (Late st Contact Info) Description 07/02/2025 2:30 PM EST Office Visit [facility] ADULT DENTAL [address] [place] [address] Singer-Andrews, Emily, DDS [address] [place] [address] 07/08/2025 2:45 PM EST Office Visit [facility] CHC MED & PEDS [address] [place], [place] [phone] Oliverio Quinn MD [address] [place], [place] [phone] documented as of this encounter Visit Diagnoses Not on filedocumented in this encounter Care Teams Sieve Repairer Relationship Specialty Start Date End Date Rosey Rojas FNP [address] [place] [address] PCP - General Family Medicine 03/31/22 08/23/23 Miya Parker NP [address] [place] [address] PCP - General Family Medicine 08/24/23 10/19/23 Oliverio Quinn MD [address] [place] [address] [phone] PCP - General Internal Medicine 04/14/25 documented as of this encounter
--- OUTSIDE RECORDS SUMMARY | 2025-06-14 10:20 | XMS_ITS | Encounter Summary ---
Author Organization [employer] Address [address] [facility] 7t [place] [address] Care Team Providers Care Stem Setter Name Role Phone Oliverio Quinn MD Primary Care Provider [phone] Encounter Details Date Type Department Care Team ([facility] st Contact Info) Description 06/03/2025 Orders Only [facility] CHC MED & PEDS [address] [place], [place] [phone] Oliverio Quinn MD [address] [place], [place] [phone] Class 1 obesity due to excess calories without serious comorbidity with body mass index (BMI) of 33.0 to 33.9 in adult (Primary Dx) Social History Tobacco Use Types [...] the past 12 months, has t he [email or web address] oil or water company threatened to shut [...] Visit [facility] ADULT DENTAL [address] [place], [place] [phone] Singer-AndrewsMeganEmily, DDS [address] [place] [address] 07/08/2025 2:45 PM EST Office Visit [facility] CHC MED & PEDS [address] [place] [address] Oliverio Quinn MD [address] [place] [address] documented as of this encounter Visit Diagnoses Diagnosis Class 1 obesity due to excess calories without serious comorbidity with body mass index (BMI) of 33.0 to 33.9 in adult- Primary documented in this encounter Care Teams Stem Setter Relationship Specialty Start Date End Date Oliverio Quinn MD [address] [place] [address] PCP - General Internal Medicine 04/14/25 documented as of this encounter
--- OUTSIDE RECORDS SUMMARY | 2025-06-14 10:20 | XMS_ITS | Encounter Summary ---
Author Organization [employer] Address [address] [facility] 7t [place] [address] Care Team Providers Care Sail Lay Out Worker Name Role Phone Rosey RojasP Primary Care Provider [phone] Miya Parker NP Primary Care Provider [phone] Oliverio Quinn MD Primary Care Provider [phone] Encounter Details Date Type Department Care Team (Late st Contact Info) Description 05/31/2022 Orders Only [facility] MEDICINE [address] [place] [address] Cornelia Olivarez, ALYSIA [address] [place] [address] Social History Tobacco Use Types Packs/Day Years [...] Description 07/02/2025 2:30 PM EST Office Visit [facility] ADULT DENTAL [address] [place] [address] Emily Arzate, DDS [address] [place] [address] 07/08/2025 2:45 PM EST Office Visit [facility] CHC MED & PEDS [address] [place] [address] Oliverio Quinn MD [address] [place] [address] documented as of this encounter Procedures Procedure [...] Results * OBSX1 (02/23/2023 7:37 PM EDT) [facility] OBS1 POSITIVE NEGATIVE [facility] 02/23/2023 7:37 PM EDT 02/23/2023 7:40 PM EDT [facility] External Provider LAB BLO OD ORDERABLES Final Result [facility] [address] [place] [phone] [phone] * hCG, Total, Quantitative (02/23/2023 5:49 PM EDT) HCG Quantitative <2 mIU/mL [facility] Comment:Weeks post LMP Appro ximate hCG(Last Menstrual Period) Range (mIU/ml)3 - 4 weeks 9 - 1304 - 5 weeks 75 - 2,6005 - 6 weeks 850 - 20,8006 - 7 weeks 4000 - 100,2007 - 12 weeks 11,500 - 289,76490 - 16 weeks 18,300 - 137,65795 - 29 weeks (2nd trimester) 1,400 - 53,49362 - 41 weeks (3rd trimester) 940 - 60,000The Salgado B- hCG assay is used for the early detection ofpregnancy; it cannot be used to diagnose any conditionunrelated to . If a B-hCG level is not supportedby the clinical evidence, results should be confirmed by analternative method (qualitative urine hCG, for example). 02/23/2023 5:49 PM EDT 02/23/2023 5:53 PM EDT us [facility] External Provider LAB BLO OD ORDERABLES Final Result [facility] [address] [place] [phone] * (ABNORMAL) CBC auto differential (02/23/2023 5:49 PM EDT) Pathologist [facility] White Blood Count 9.3 4.8 - 10.8 X10*3/uL [facility] Red Blood Count 4.69 4.20 - 5.50 X10*6/uL [facility] Hemoglobin 12.2 12.0 - 16.0 g/dl [facility] Hematocrit 37.4 37.0 - 47.0 % [facility] Mean Corpuscular Volume 79.7(L) 80.0 - 98.0 fL [facility] Mean Corpuscular Hemoglobin 26.0(L) 27.0 - 33.0 pg [facility] Mean Corpuscular HGB Conc 32.6 31.0 - 35.0 g/dl [facility] Red Cell Distribution Width 14.7 11.0 - 16.0 % [facility] Platelet Count 350 160 - 400 X10*3/uL [facility] Mean Platelet Volume 10.1 9.4 - 12.3 fL [facility] Neutrophils Percent Auto 53.2 45 - 73 % [facility] Imm Gran Pct Auto 0.3 0.0 - 0.4 % [facility] Lymphocytes Percent Auto 35.7 20 - 40 % [facility] Monocytes Percent Auto 7.2 2 - 11 % [facility] Eosinophils Percent Auto 2.8 0 - 4 % [facility] Basophils Percent Auto 0.8 0 - 2 % [facility] NRBC Pct Auto 0.0 0.0 - 0.2 /100WBC [facility] Neutrophils Absolute Auto 4.9 2.0 - 8.3 x10*3/uL [facility] Imm Gran Abs Auto 0.03 0.00 - 0.03 X10*3/uL [facility] Lymphocytes Absolute Auto 3.3 1.2 - 4.9 X10*3/uL [facility] Monocytes Absolute Auto 0.7 0.1 - 1.2 X10*3/uL [facility] Eosinophils Absolute Auto 0.3 0.0 - 0.4 X10*3/uL [facility] Basophils Absolute Auto 0.1 0.0 - 0.2 X10*3/uL [facility] NRBC Abs Auto 0.000 0.0 - 0.012 X10*3/uL [facility] 02/23/2023 5:49 PM EDT 02/23/2023 5:53 PM EDT us [facility] External Provider LAB BLO OD ORDERABLES Final Result [facility] [address] [place] [phone] * Lipase (02/23/2023 5:49 PM EDT) Lipase 47 8 - 78 U/L [facility] 02/23/2023 5:49 PM EDT 02/23/2023 5:53 PM EDT us Generic External Data Provider LAB BLOOD ORDERAB LES Final Result [facility] [address] [place] [phone] * (ABNORMAL) Comprehensive Metabolic Panel (02/23/2023 5:49 PM EDT) Sodium 138 135 - 145 mmol/L [facility] Potassium 3.9 3.3 - 5.1 mmol/L [facility] Chloride 108 96 - 108 mmol/L [facility] Carbon Dioxide 20(L) 22 - 29 mmol/L [facility] Anion Gap 14 12 - 20 [facility] Urea Nitrogen (BUN) 13 9 - 16 mg/dL [facility] Creatinine, Serum 0.71 0.5 - 1.4 mg/dL [facility] Creatinine Clr Calc Pharmacy 108.9 [facility] Comment:Provided height and weight: 154.94 cm,68.3 kg.eGFR (calculated from the MDRD study equation) and eCrCl(calculated from the Cockcroft-Gault equation) are based ondifferent parameters and may not yield comparable results.If eCrCl result is absurd, please check patient'sheight/weight. Estimated Glomerular Filt Rate >60 [facility] Comment:NOTE: For -Am erican individuals, multiply the result by 1.210.Chronic Kidney Disease: Estimated GFR < 60 mL/min/1.80f0Heiuiw Kidney Disease: Estimated GFR < 15 mL/min/1.73m2 Glucose 97 60 - 115 mg/dL [facility] Calcium 9.5 8.4 - 10.2 mg/dL [facility] Bilirubin, Total 0.2 0.0 - 1.0 mg/dL [facility] Aspartate Amino Transferase 20 5 - 31 U/L [facility] Alanine Aminotransferase 21 0 - 31 U/L [facility] Total Protein 8.4(H) 6.5 - 8.0 g/dL [facility] Albumin Level 4.5 3.5 - 5.0 g/dL [facility] Alkaline Phosphatase 149(H) 39 - 117 U/L [facility] 02/23/2023 5:49 PM EDT 02/23/2023 5:53 PM EDT [facility] External Provider LAB BLO OD ORDERABLES Final Result Performing Organization Address City/[facility]/ZIP Co de Phone Number [facility] [address] [place] [phone] * Partial Thromboplastin Time, Activated (APTT) (02/23/2023 5:49 PM EDT) Partial Thromboplastin Time 33.9 26.0 - 36.4 SEC [facility] 02/23/2023 5:49 PM EDT 02/23/2023 5:53 PM EDT [facility] External Data Provider LAB BLOOD ORDERAB LES Final Result Performing Organization Address [facility] Co de Phone Number [facility] [address] [place] [phone] * Prothrombin Time-INR (02/23/2023 5:49 PM EDT) Prothrombin Time 12.1 11.1 - 13.3 SEC [facility] INTERNATIONAL NORM RATIO 1.0 0.9 - 1.1 [facility] Comment:INTERNATIONAL NORMAL IZED RATIO [...] 5:49 PM EDT 02/23/2023 5:53 PM EDT [facility] External Provider LAB BLO OD ORDERABLES Final Result Performing Organization Address [facility] Co de Phone Number [facility] [address] [place] [phone] * HCG, Qualitative, Urine (02/23/2023 5:49 PM EDT) Urine NEGATIVE NEGATIVE [facility] Comment:This test was develo ped to detect early . Falsenegative results may occur after the 5th - 7th week ofpregnancy when using this test method. If clinicallyindicated, consider a serum hCG. 02/23/2023 5:49 PM EDT 02/23/2023 5:53 PM EDT [facility] External Provider LAB URI NE ORDERABLES Final Result Performing Organization Address [facility] de Phone Number [facility] [address] [place] [phone] * (ABNORMAL) Urinalysis w/reflex microscopic (02/23/2023 5:49 PM EDT) Color Urine Yellow [facility] Appearance Urine Clear [facility] PH 5.5 5.0 - 9.0 [facility] Glucose Urine UA Negative Negative mg/dL [facility] Urine Blood Negative Negative [facility] Specific [place] - Urine >=1.030(H) 1.005 - 1.025 [facility] Urine Protein Negative Neg-Trace mg/dL [facility] Urine Ketones Negative Negative mg/dL [facility] Nitrite Urine Negative Negative [facility] Leukocyte Esterase Urine Negative Negative [facility] 02/23/2023 5:49 PM EDT 02/23/2023 5:53 PM EDT Narrative [facility] - 02/23/2023 5:57 PM EDT 1745Urine, Clean Catch [facility] External Provider LAB URI NE ORDERABLES Final Result [facility] [address] [place] [phone] documented in this encounter Visit Diagnoses Not on filedocumented in this encounter Care Teams Sail Lay Out Worker Relationship Specialty Start Date End Date Rosey Rojas FNP [address] [place] [phone] PCP - General Family Medicine 03/31/22 08/23/23 Miya Parker NP [address] [place] [phone] PCP - General Family Medicine 08/24/23 10/19/23 Oliverio Quinn MD [address] [place] [phone] PCP - General Internal Medicine 04/14/25 documented as of this encounter
== END 2025-06-14 10:18 | disposition home or self-care (01) ==
LOC: HO.CT 10:17
PROVIDERS: PCP Internal Medicine; Visit Provider Internal Medicine
DX: G44.82 Headache associated with sexual activity (principal)
CPT/HCPCS: 70450

== ENCOUNTER → 2025-06-14 10:19 | Outpatient (BNV) | payer MEDICAID, SELFPAY | PROVIDERS: PCP Internal Medicine; Visit Provider Radiology Diagnostic Radiology | DX: R51.9 Headache, unspecified (principal) | CPT/HCPCS: 70450 ==